=== PATIENT | female | born 1950 | race Caucasian/White ===

== ENCOUNTER → 2017-07-14 11:18 | Outpatient (CLI) | payer MEDICARE, MEDICAID, SELFPAY ==
[2017-07-14 13:08] LABS: Absolute Lymphocyte Count 1.15 X10^3/ul (0.83-4.51); Absolute Neutrophil Count 3.3 X10^3/uL (2.0-7.7); Basophil# 0.02 X10^3/uL; Basophil% 0.4 % (0-1); Eosinophil# 0.13 X10^3/uL; Eosinophils% 2.4 % (0-5); Hematocrit 48.8 % (37-47); Hemoglobin 16.8 g/dl (12.0-15.0); Lymphocyte # 1.15 X10^3/ul (4.0); Lymphocyte % 21.5 % (19-41); Mean Corp Hgb Conc 34.4 g/gl (32-36); Mean Corpuscular Hgb 30.4 pg (27.0-32.0); Mean Corpuscular Volume 88.2 fL (81-99); Mean Platelet Vol. 11.1 fl (6.2-12.0); Monocyte# 0.72 X10^3/uL; Monocyte% 13.5 % (0-10); Neutrophil # 3.32 X10^3/uL (2.7-7.7); Neutrophil % 62.2 % (47-70); Platelet Count 190 K/mm3 (150-450); RBC Distribution Width CV 13.8 % (11.6-14.6); RBC Distribution Width SD 44.7 fl (35.1-43.9); Red Blood Count 5.53 M/mm3 (4.2-5.4); White Blood Count 5.3 K/mm3 (4.4-11.0)
[2017-07-14 13:11] LABS: POSITIVE COUNT NO; POSITIVE DIFFERENTIAL NO; POSITIVE MORPHOLOGY NO
[2017-07-14 13:28] LABS: ALB/GLOB Ratio 1.1 RATIO (0.9-2.4); AST(SGOT) 16 U/L (15-37); Alanine Aminotransfer ALT/SGPT 24 U/L (13-56); Albumin, Serum 4.1 g/dL (3.2-5.0); Alkaline Phosphatase 172 U/L (45-117); Anion Gap 6 (5-15); BUN 8 mg/dL (7-18); BUN/Creat Ratio 8.9 RATIO (10-20); Calcium,Total 8.7 mg/dL (8.5-10.1); Chloride 105 mmol/L (98-107); EST Glomerular Filtration Rate 66 mL/min (>60); Est Glom Filt Rate - Afr Amer 80 mL/min (>60); Globulin 3.7 g/dL (2.2-4.2); Glucose 92 mg/dL (74-106); Potassium 4.4 mmol/L (3.5-5.1); Protein, Total 7.8 g/dL (6.4-8.2); Sodium Level 139 mmol/L (136-145); Thyroid Stim Hormone (TSH) 1.13 uIU/mL (0.358-3.74)
[2017-07-14 13:34] LABS: Vitamin D,25 Hydroxy < 4.2 ng/mL (29.95-100.01)
== END ==
PROVIDERS: Family Provider Family Medicine Geriatric Medicine; PCP Family Medicine Geriatric Medicine; Visit Provider Family Medicine Geriatric Medicine
DX: E55.9 Vitamin D deficiency, unspecified (principal); R53.83 Other fatigue
CPT/HCPCS: 36415; 80053; 82306; 84443; 85025

== ENCOUNTER 2018-02-03 09:51 | Emergency (ER) | payer MEDICARE, MEDICAID, SELFPAY ==
[2018-02-03 09:52] VITALS: BP 164/102; PULSE 83; RESP 16; TEMP 36.4; O2SAT 95; BMI 21.7
--- NOTE | 2018-02-03 10:19 | ED.VISSUMM ---
- ER Visit Summary Date of Service: 02/03/18 Chief Complaint: Facial swelling History of Present Illness: The patient is a 68 F who states that several days ago she was flossing. Left upper premolar area was bleeding along the gumline. Now she is developed a bump along the gumline in that area as well as left maxillary facial swelling and tenderness. She does not have a active dentist. She is a smoker. She has a history of mitral valve prolapse. Physical Examination: Afebrile vital signs are stable Gen: Well-nourished well-developed Head: Normocephalic atraumatic Eyes: Perrl EOMI ENT: TMs clear no rhinorrhea moist mucous membranes left upper premolar region demonstrates mild gum swelling with no drainable abscess. There is dental tenderness. There is left maxillary facial swelling with mild erythema. No ocular involvement noted Neck: Supple no lymphadenopathy no JVD nontender CVS: Regular rate rhythm no murmurs normal S1-S2 Respiratory: No distress clear to auscultation bilaterally chest nontender Abdomen: Soft nontender nondistended normal bowel sounds no masses Back: Nontender Extremity: Nontender no edema Skin: Normal color no rash Neuro: alert orientated ?3 CN II-XII intact normal strength sensation reflexes gait cerebellar Psych: Normal affect normal mood Emergency Department Course and Treatment: Patient will be started on penicillin, Motrin, and a few Gray for pain. She is to follow-up with dentistry as soon as possible. She was advised that the abscess may worsen and necessitate repeat visit and possibly admission. Impression: 1. Periapical abscess of tooth This note was generated with [employer] dictation software. It may contain incorrect words, spelling, and punctuation that were not noted in review of the chart prior to signing ED Disposition - Plan for ED Patient: Disposition: Home or Assisted Living Chief Complaint: Dental Instructions: Dental Abscess Prescriptions: Hydrocodone Bitart/Apap 5-325 [Gray 5MG-325MG] 1 tab PO Q6H PRN PRN 3 Days #10 tab PRN Reason: Pain Ibuprofen [Motrin] 800 mg PO TID PRN PRN #20 tab PRN Reason: Pain Penicillin V Potassium 500 mg PO 4X/DAY #40 tab Additional Instructions: Please follow-up with dentist as soon as possible
--- NOTE | 2018-02-03 10:22 | ED.DCSUM_ITS ---
- ER Visit Summary Date of Service: 02/03/18 Chief Complaint: Facial swelling History of Present Illness: The patient is a 68 F who states that several days ago she was flossing. Left upper premolar area was bleeding along the gumline. Now she is developed a bump along the gumline in that area as well as left maxillary facial swelling and tenderness. She does not have a active dentist. She is a smoker. She has a history of mitral valve prolapse. Physical Examination: Afebrile vital signs are stable Gen: Well-nourished well-developed Head: Normocephalic atraumatic Eyes: Perrl EOMI ENT: TMs clear no rhinorrhea moist mucous membranes left upper premolar region demonstrates mild gum swelling with no drainable abscess. There is dental tenderness. There is left maxillary facial swelling with mild erythema. No ocular involvement noted Neck: Supple no lymphadenopathy no JVD nontender CVS: Regular rate rhythm no murmurs normal S1-S2 Respiratory: No distress clear to auscultation bilaterally chest nontender Abdomen: Soft nontender nondistended normal bowel sounds no masses Back: Nontender Extremity: Nontender no edema Skin: Normal color no rash Neuro: alert orientated ?3 CN II-XII intact normal strength sensation reflexes gait cerebellar Psych: Normal affect normal mood Emergency Department Course and Treatment: Patient will be started on penicillin, Motrin, and a few Keller for pain. She is to follow-up with dentistry as soon as possible. She was advised that the abscess may worsen and necessitate repeat visit and possibly admission. Impression: 1. Periapical abscess of tooth This note was generated with [employer] dictation software. It may contain incorrect words, spelling, and punctuation that were not noted in review of the chart prior to signing ED Disposition - Plan for ED Patient: Disposition: Home or Assisted Living Chief Complaint: Dental Instructions: Dental Abscess Prescriptions: Hydrocodone Bitart/Apap 5-325 [Keller 5MG-325MG] 1 tab PO Q6H PRN PRN 3 Days #10 tab PRN Reason: Pain Ibuprofen [Motrin] 800 mg PO TID PRN PRN #20 tab PRN Reason: Pain Penicillin V Potassium 500 mg PO 4X/DAY #40 tab Additional Instructions: Please follow-up with dentist as soon as possible
== END 2018-02-03 10:46 | disposition home or self-care (01) ==
LOC: ED 10:44
PROVIDERS: Emergency Provider Emergency Medicine; Family Provider Family Medicine Geriatric Medicine; PCP Family Medicine Geriatric Medicine
DX: K04.7 Periapical abscess without sinus (principal); I34.1 Nonrheumatic mitral (valve) prolapse; Z79.899 Other long term (current) drug therapy; F17.200 Nicotine dependence, unspecified, uncomplicated
CPT/HCPCS: 99282

== ENCOUNTER 2018-07-18 10:41 | Emergency (ER) | payer MEDICARE, MEDICAID, SELFPAY ==
[2018-07-18 10:43] VITALS: BP 200/133; PULSE 87; RESP 16; TEMP 36.7; O2SAT 98; BMI 22.4
--- NOTE | 2018-07-18 11:10 | EKG12_ITS ---
Test Reason : HTN Blood Pressure : / mmHG Vent. Rate : 086 BPM Atrial Rate : 086 BPM P-R Int : 152 ms QRS Dur : 080 ms QT Int : 378 ms P-R-T Axes : 073 -30 050 degrees QTc Int : 452 ms Normal sinus rhythm with sinus arrhythmia Possible Left atrial enlargement Left axis deviation Abnormal ECG Confirmed by ELLIOT MONTEIRO, KAE ([id number]), story editor REINA ALMANZA ([id number]) on 07/20/2018 1:35:16 PM Referred By: EDISON/EDMUNDO Confirmed By:KAE ZARATE MD
--- NOTE | 2018-07-18 11:11 | RAD_ITS ---
STUDY: X-RAY CHEST REASON FOR EXAM: Female, 68 years old. Chest pain and dizziness. TECHNIQUE: PA and lateral views of the chest. COMPARISON: None. FINDINGS: EKG electrodes are seen. Hyperinflation. Decreased bilateral bronchovascular markings suggestive of emphysematous changes. There is no demonstrated pleural abnormality. Normal size heart. Normal mediastinum and param. Normal visualized pulmonary arteries. There is atherosclerotic tortuosity of the aortic arch and descending thoracic aorta. There are diffuse degenerative changes of the visualized thoracic spine. Normal visualized ribs, clavicles, and shoulders. There is no demonstrated abnormality of the visualized soft tissue structures of the upper abdomen. RAD/Chest PA and Lateral IMPRESSION: Hyperinflation. Findings suggestive of emphysematous changes. Electronically Signed: Master Hahn, at 12:11 EDT , Service support ,
--- NOTE | 2018-07-18 11:16 | ED.VISSUMM ---
- ER Visit Summary Date of Service: 07/18/18 Chief Complaint: Hypertension History of Present Illness: The patient is a 68 F with a history of hypertension who presents with elevated blood pressures for the past 3 days. Patient states she went to the emergency department at [facility] for shoulder pain. Patient states she was told that her blood pressure was elevated at that time. Patient states she followed up with [facility] today. Patient states she was referred here from the orthopedic office because her blood pressure was elevated. Patient denies any chest pain or shortness of breath. Patient denies any nausea or vomiting. Patient does admit to some chronic neck and back pain. Patient denies any visual changes. Physical Examination: Vital signs are stable. Patient is afebrile. Patient is in no acute distress. Oral mucosa is pink and moist. Neck is supple. Trachea is midline. There is no JVD noted. Heart was regular rate and rhythm. Lungs are clear and equal bilateral. Abdomen is soft. Bowel sounds are normal. There is no tenderness. There is no guarding noted. Skin is warm dry. Cranial nerves II through XII are intact. There are no focal motor or sensory deficits noted. The remaining physical exam is within normal limits. Test Results: EKG showed a normal sinus rhythm with a rate of 86. There is left axis deviation. There are no acute ST or T wave changes. CBC, basic metabolic profile, and troponin were obtained and were normal. PA and lateral chest x-ray does not show any acute cardiopulmonary process. Emergency Department Course and Treatment: Patient was given a dose of clonidine here. Patient's blood pressure remained elevated at 177/101. Patient was given a second dose of clonidine here. Patient's blood pressure after this was 142/83. She was given a prescription for clonidine. Patient was instructed to follow-up with her primary care physician in 5-7 days. Patient was requesting to follow-up with Dr. Miller or someone in her office. Patient understood and was agreeable with the plan. All questions were answered. Disposition: Discharge home Impression: Hypertension This note was generated with [employer] software. It may contain incorrect words, spelling, and punctuation that were not noted in review of the chart prior to signing ED Disposition - Plan for ED Patient: Disposition: Home or Assisted Living Diagnosis: Hypertension Instructions: ED HTN Established Referrals: Parvez De Dios Chi, MD [COURTESY STAFF PHYSICIAN] - Dixie Miller DO [STAFF PHYSICIAN] - 5-7 Days
[2018-07-18] MEDS: cloNIDine HCl 0.1 MG Tablet PO ×2 (11:41→13:27)
[2018-07-18 11:42] VITALS: BP 199/122; PULSE 85; RESP 16; O2SAT 97
[2018-07-18 11:44] LABS: Absolute Lymphocyte Count 0.76 X10^3/ul (0.83-4.51); Absolute Neutrophil Count 5.6 X10^3/uL (2.0-7.7); Basophil# 0.02 X10^3/uL; Basophil% 0.3 % (0-1); Hematocrit 47.7 % (37-47); Lymphocyte # 0.76 X10^3/ul (4.0); Lymphocyte % 10.9 % (19-41); Mean Corp Hgb Conc 33.5 g/gl (32-36); Mean Corpuscular Hgb 30.4 pg (27.0-32.0); Mean Corpuscular Volume 90.5 fL (81-99); Mean Platelet Vol. 10.9 fl (6.2-12.0); Monocyte# 0.57 X10^3/uL; Monocyte% 8.2 % (0-10); Neutrophil # 5.62 X10^3/uL (2.7-7.7); Neutrophil % 80.5 % (47-70); Platelet Count 161 K/mm3 (150-450); RBC Distribution Width CV 13.4 % (11.6-14.6); Red Blood Count 5.27 M/mm3 (4.2-5.4)
[2018-07-18 11:45] LABS: POSITIVE COUNT NO; POSITIVE DIFFERENTIAL NO; POSITIVE MORPHOLOGY NO
[2018-07-18 11:57] LABS: Anion Gap 3 (5-15); BUN 13 mg/dL (7-18); Calcium,Total 8.9 mg/dL (8.5-10.1); Chloride 106 mmol/L (98-107); Creatinine, Serum 0.93 mg/dL (0.55-1.02); EST Glomerular Filtration Rate 64 mL/min (>60); Est Glom Filt Rate - Afr Amer 77 mL/min (>60); Estimated Creatinine Clearance 53.45 ml/min; Glucose 107 mg/dL (74-106); Potassium 3.8 mmol/L (3.5-5.1); Sodium Level 138 mmol/L (136-145)
[2018-07-18 13:00] VITALS: BP 174/102; PULSE 78; RESP 14; O2SAT 97
[2018-07-18 13:27] VITALS: BP 174/101; PULSE 86; RESP 20; O2SAT 95
[2018-07-18 14:42] VITALS: BP 142/82; PULSE 81; RESP 16; O2SAT 98
== END 2018-07-18 14:43 | disposition home or self-care (01) ==
PROVIDERS: Emergency Provider Emergency Medicine
DX: I10 Essential (primary) hypertension (principal); Z72.0 Tobacco use; Z79.899 Other long term (current) drug therapy
CPT/HCPCS: 36415; 71046; 80048; 84484; 85025; 93005; 99285

== ENCOUNTER 2018-07-20 08:25 | Emergency (ER) | payer MEDICARE, MEDICAID, SELFPAY ==
[2018-07-20 08:26] VITALS: BP 219/112; PULSE 90; RESP 18; TEMP 36.6; O2SAT 99; BMI 23.3
--- NOTE | 2018-07-20 08:33 | ED.RN ---
PT STATES I JUST WANT PAIN MEDS AND THEN I WILL FIND A
[2018-07-20] MEDS: morphine 8 MG/ML Syringe 6 MG IM (09:06)
[2018-07-20] MEDS: Ketorolac 60 MG/2 ML Vial IM (09:08)
--- NOTE | 2018-07-20 09:08 | ED.VISSUMM ---
- ER Visit Summary Date of Service: 07/20/18 Chief Complaint: Med refill History of Present Illness: The patient is a 68 F requesting refill of pain medication and possible blood pressure meds. 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 She has a history of arthritis in her neck. She is has continued pain in the right shoulder and neck. She was seen at [facility] and given a prescription for Tylenol 3 and a Medrol Dosepak. Patient was seen at [facility] for follow-up. She had a shoulder x-ray done but was told they would not do anything further until her blood pressure was controlled. She was seen in the ER here on the for elevated blood pressure. Labs and chest x-ray were performed and reviewed. She is given a prescription for clonidine. Patient states that she is able to be seen at [facility] physicians either later today or tomorrow, but she is out of pain medication and very uncomfortable. She states she is in so much pain that her blood pressure medicines are not controlling her blood pressure. Physical Examination: Vital signs in triage include a blood pressure of 219/112, temperature 98, heart rate 90, respiratory rate 18, pulse ox 99% on room air. Patient is sitting upright on the side of the bed. She is in no acute distress. Head neck examination unremarkable. Heart is regular rate and rhythm. Lungs sounds are clear. Abdomen is soft nontender. Back examination reveals significant tenderness throughout the cervical paraspinal muscles and the trapezius muscles bilaterally, right greater than left. She has decreased range of motion of the right arm secondary to pain. She has strong distal pulses and normal sensation. Test Results: Emergency Department Course and Treatment: Patient was given IM injection of morphine, Norflex, and Toradol. On repeat evaluation patient states her pain is significantly improved. Blood pressure remains elevated at 202/117. Patient is due for her clonidine now and will be given 0.2 mg p.o. She will follow-up with [facility] practice this afternoon or tomorrow as scheduled. She will be given prescription for [place], Flexeril, and Toradol. Treatment Plan: [] Disposition: Discharge Impression: 1. Right shoulder strain with muscle spasm 2. Hypertension This note was generated with [employer] software. It may contain incorrect words, spelling, and punctuation that were not noted in review of the chart prior to signing ED Disposition - Plan for ED Patient: Referrals: Care Physician,No Primary [Primary Care Provider] -
[2018-07-20] MEDS: Orphenadrine 60 MG/2 ML Ampul IM (09:09)
--- NOTE | 2018-07-20 10:35 | ED.DEP ---
ED Disposition - Plan for ED Patient: Disposition: Home or Assisted Living Instructions: ED Sprain Shoulder, ED Spasm Muscle Prescriptions: Hydrocodone Bitart/Apap 5-325 [[place] 5MG-325MG] 1 tablet PO Q6H PRN PRN 3 Days #10 tablet PRN Reason: Pain Ketorolac [Toradol] 10 mg PO Q6H PRN #14 tablet PRN Reason: Pain Cyclobenzaprine [Flexeril] 10 mg PO TID PRN #20 tablet PRN Reason: Muscle Spasm Referrals: Jaylen Braden MD [STAFF PHYSICIAN] -
--- NOTE | 2018-07-20 10:38 | DCINST.ED_ITS ---
ED Disposition - Plan for ED Patient: Disposition: Home or Assisted Living Instructions: ED Sprain Shoulder, ED Spasm Muscle Prescriptions: Hydrocodone Bitart/Apap 5-325 [[place] 5MG-325MG] 1 tablet PO Q6H PRN PRN 3 Days #10 tablet PRN Reason: Pain Ketorolac [Toradol] 10 mg PO Q6H PRN #14 tablet PRN Reason: Pain Cyclobenzaprine [Flexeril] 10 mg PO TID PRN #20 tablet PRN Reason: Muscle Spasm Referrals: Jaylen Braden MD [STAFF PHYSICIAN] -
[2018-07-20 10:50] VITALS: BP 119/116
--- NOTE | 2018-07-20 10:51 | ED.RN ---
misc order by dr gomez for pt to take own klonidine for bp.
== END 2018-07-20 10:52 | disposition home or self-care (01) ==
PROVIDERS: Emergency Provider Emergency Medicine
DX: M62.838 Other muscle spasm (principal); S46.911A Strain of unspecified muscle, fascia and tendon at shoulder and upper arm level, right arm, initial encounter; X58.XXXA Exposure to other specified factors, initial encounter; Y93.9 Activity, unspecified; Y92.9 Unspecified place or not applicable; Y99.9 Unspecified external cause status; I10 Essential (primary) hypertension; Z72.0 Tobacco use; G89.29 Other chronic pain
CPT/HCPCS: 96372; 99282

== ENCOUNTER 2023-10-19 14:52 | Observation (INO) | payer MEDICARE, SELFPAY ==
[2023-10-19] VITALS (14 sets, daily range): BP systolic 118–145; BP diastolic 48–90; PULSE 68–100; RESP 16–18; TEMP 36.1–37; O2SAT 85–99; BMI 18.6; BMI 18.7
[2023-10-19 15:52] LABS: Absolute Lymphocyte Count 0.17 X10^3/uL (0.83-4.51); Absolute Neutrophil Count 9.8 X10^3/uL (2.0-7.7); Basophil# 0.07 X10^3/uL; Basophil% 0.6 % (0-1); Eosinophil# 0.59 X10^3/uL; Eosinophils% 5.2 % (0-5); Hematocrit 48.6 % (37-47); Hemoglobin 16.2 g/dL (12.0-15.0); Lymphocyte # 0.17 X10^3/ul (0.83-4.51); Lymphocyte % 1.5 % (19-41); Mean Corp Hgb Conc 33.3 g/dL (32-36); Mean Corpuscular Hgb 28.7 pg (27.0-32.0); Mean Platelet Vol. 10.4 fl (6.2-12.0); Monocyte# 0.67 X10^3/uL; Monocyte% 5.9 % (0-10); NRBC Flagged by Analyzer 0 % (0-5); Neutrophil # 9.77 X10^3/uL (2.7-7.7); Neutrophil % 86.2 % (47-70); POSITIVE DIFFERENTIAL YES; Platelet Count 156 K/mm3 (150-450); RBC Distribution Width CV 13.8 % (11.6-14.6); RBC Distribution Width SD 43.5 fl (35.1-43.9); Red Blood Count 5.65 M/mm3 (4.2-5.4); White Blood Count 11.3 K/mm3 (4.4-11.0)
[2023-10-19 16:17] LABS: Mucous, Urine 0 SEEN /hpf (<or=2+); White Blood Cells 0 SEEN /hpf (0-5)
[2023-10-19 16:20] LABS: AST(SGOT) 49 U/L (15-37); Alanine Aminotransfer ALT/SGPT 48 U/L (13-56); Albumin, Serum 3.9 g/dL (3.2-5.0); Alkaline Phosphatase 138 U/L (45-117); Anion Gap 6 (5-15); BUN 12 mg/dL (7-18); BUN/Creat Ratio 13.1 RATIO (10-20); Calcium,Total 9.2 mg/dL (8.5-10.1); Chloride 102 mmol/L (98-107); Creatinine, Serum 0.92 mg/dL (0.55-1.02); EST Glomerular Filtration Rate 64 mL/min (>60); Est Glom Filt Rate - Afr Amer 77 mL/min (>60); Estimated Creatinine Clearance 44.21 ml/min; Glucose 141 mg/dL (74-106); Potassium 3.5 mmol/L (3.5-5.1); Protein, Total 7.9 g/dL (6.4-8.2); Sodium Level 133 mmol/L (136-145)
[2023-10-19 16:28] LABS: Color, Urine Yellow (Yellow); Glucose, Dipstick Normal (Normal); Ketone-Dipstick 15 mg/dl (Negative); Leukocyte Esterase-Dipstick 25 /ul (Negative); Nitrite-Dipstick Negative (Negative); Occult Blood-Urine 25 /ul (Negative); Protein-Dipstick 30 mg/dl (Negative); Specific Gravity, Urine 1.015 (1.002-1.030); Urine Clarity Clear (Clear); Urine Urobilinogen 1 mg/dl (Normal)
[2023-10-19 16:37] LABS: Urine Bilirubin Dipstick 1 mg/dL (Negative)
[2023-10-19 16:39] LABS: Bacteria RARE /hpf (None Seen); Red Blood Cells-Urine 0-5 SEEN /hpf (0-5); Squamous Epithelial Cells - UA 0-5 SEEN /hpf (5-10)
--- NOTE | 2023-10-19 17:18 | CT_ITS ---
STUDY: CT ABDOMEN AND PELVIS WITH CONTRAST REASON FOR EXAM: Female, 73 years old. Right lower quadrant abdominal pain, guarding, ano RADIATION DOSAGE (If Supplied By Facility): CTDIvol = ( 8.44 ) mGy, DLP = ( 317.65 ) mGycm TECHNIQUE: Transaxial images were obtained from the dome of the diaphragm to the symphysis pubis without oral contrast. IV 75mL Isovue-300 was administered. Sagittal and coronal images were reconstructed. Individualized dose optimization techniques were used for this CT. COMPARISON: None. FINDINGS: The visualized lung bases are unremarkable. The visualized portions of the heart are within normal limits. Normal liver. There are multiple gallstones. There is gallbladder wall thickening. There is moderate splenomegaly. Normal pancreas. Normal bilateral adrenal glands. Normal right kidney. Normal left kidney. Normal visualized stomach. Normal small intestine. There are multiple colonic diverticula consistent with diverticulosis. There is a tubular, thick-walled appendix (>7mm), consistent with acute appendicitis. There is a calcified appendicolith. There is diffuse atherosclerotic calcification of the abdominal aorta, without a demonstrated aneurysm. Normal inferior vena cava. Normal retroperitoneum. Normal urinary bladder. Normal visualized uterus. There is no free fluid in the abdomen or pelvis. Normal abdominal wall. There is lumbar levoscoliosis with degenerative change. CT/Abdomen/Pelvis W IV Cont ONLY IMPRESSION: Acute appendicitis. No obstruction or abscess. Colonic diverticulosis. Multiple gallstones. No biliary dilatation. Splenomegaly. N.B. : The above Results were Read Back by Khris Preston MD to Eyal Pugh MD, and understanding confirmed on 10/19/2023 18:12:38 (ET). Electronically Signed: Khris Preston MD at 18:13 EDT ,
[2023-10-19] MEDS: Ondansetron 4 MG/2 ML Vial IV (17:47)
[2023-10-19] MEDS: Morphine 4 MG/ML Syringe IV (17:48)
--- NOTE | 2023-10-19 18:12 | ED.VIS.GI ---
HPI HPI - GI History of Present Illness Chief Complaint: Abd Pain Detail of Chief Complaint: Abdominal pain that is localized to the right lower quadrant with nausea, l Informant: patient Abdominal Pain/Flank Pain Onset: Yesterday Context: Gradual Onset Timing: Continuous Quality: Aching Location: RLQ Current Severity: Moderate Maximum Severity: Severe Worsened by: Car ride and Movement Relieved by: Nothing Nausea/Vomiting/Emesis GI Symptom: Positive for Nausea Diarrhea/Melena/Hematochezia GI Symptom: Negative for Diarrhea, Melena or Hematochezia Associated Symptoms Associated Symptoms: Negative for Dysuria, Frequency, Hematuria or Urgency Narrative Narrative: Patient is a 73-year-old woman with history of hypertension, hypercholesterolemia and depression. She is on no anticoagulant. She presents with abdominal pain that has migrated to the right lower quadrant. Onset of pain last evening. She not anything to eat today. She does report nausea. She has no appetite. She denies fever or chills. She denies intolerance to greasy or fried foods. She denies history of diverticulosis or diverticulitis. She denies history of gynecologic disorder. She denies allergy to penicillin. She does have allergy to sulfa. She denies dysuria, frequency, urgency or hematuria. She denies flank pain. There is no history of trauma. She denies cardiac or respiratory symptoms. Prior similar symptoms: No Recent Illness/Hospitalization: No PFSH [facility] Medical History HTN (hypertension) Hyperlipemia Suicide attempt Depression Back pain Home Medications ?Medication ?Instructions ?Recorded ?Last Taken ?Type alendronate 70 mg tablet 70 mg PO QWEEK 10/19/23 Unknown History atorvastatin 40 mg tablet 40 mg PO QHS cholesterol 10/19/23 Unknown History cholecalciferol (vitamin D3) 25 25 mcg PO DAILY 10/19/23 Unknown History mcg (1,000 unit) capsule (Vitamin D3) hydrochlorothiazide 25 mg tablet 25 mg PO DAILY 10/19/23 Unknown History sertraline 100 mg tablet 200 mg PO DAILY 10/19/23 Unknown History Allergy/AdvReac Type Severity Reaction Status Date / Time Sulfa (Sulfonamide Allergy Mucosal Verified 10/19/23 14:55 Antibiotics) lesions Surgical History H/O unilateral oophorectomy Social History household members: none housing: house Smoking Status: Current every day smoker tobacco type: cigarettes ROS ROS ED Constitutional Constitutional ED: Denies chills, fever(s) or subjective ENT ENT ED: Denies ear pain, rhinorrhea or sore throat Cardiovascular Cardiovascular: Denies chest pain, palpitations or racing heartbeat Respiratory/Chest Respiratory/Chest: Denies cough, dyspnea or dyspnea on exertion Gastrointestinal Gastrointestinal: Reports abdominal pain, nausea and other Details: Anorexia. ; Denies constipation, diarrhea, melena or vomiting Genitourinary Genitourinary ED: Denies dysuria, hematuria or urinary frequency Musculoskeletal Musculoskeletal: Denies arthralgias, back pain, myalgias or neck pain Integumentary Denies abscess or rash Neurologic Neurologic: Denies headache(s), paresthesias or weakness Hematologic/Lymphatic Hematologic/Lymphatic: Denies easy bleeding or easy bruising EXAM Physical Exam Const Vital Signs: 10/19/23 14:53 10/19/23 16:58 10/19/23 18:01 Temperature 97.7 F L Temperature Source Temporal Pulse Rate 98 69 78 Respiratory Rate 18 16 16 Blood Pressure 138/90 H 141/83 H 124/78 H Blood Pressure Mean 106 102 93 Pulse Ox 92 99 98 Oxygen Delivery Method Room Air Room Air Room Air Positive well nourished and well developed Constitutional Narrative: Patient appears uncomfortable. General Appearance ED: well developed; Negative for pallor HEENT Reports TM's clear and dry mucous membranes normocephalic and atraumatic Tympanic Membrane ED: Yes TM's clear Mouth ED: Yes dry mucous membranes Mouth: dry mucous membranes Eyes PERRL and EOMs intact bilaterally General Eye ED: Negative for pale conjunctiva or scleral icterus Resp normal respiratory effort and clear to auscultation bilaterally Cardio regular rate, regular rhythm, S1 normal heart sound, S2 normal heart sound and no murmurs GI no masses; Negative for non-tender or non-distended GI Narrative: There is slight tympany to percussion. She has percussion tenderness right lower quadrant. She has an equivocal Rovsing sign. She does have rebound tenderness. There is guarding over the right lower quadrant in the proximity McBurney's point. Back/Spine no CVA tenderness Extremity full ROM Neuro CN's II-XII intact bilaterally and moves all extremities Sensorium / Orientation: alert Psych mental status grossly normal Skin no wounds General Skin Exam: Negative for jaundice or pallor Lesions: no lesions Rashes: no rashes MDM MDM MDM Narrative Medical decision making narrative: Differential diagnosis would include appendicitis, regional enteritis, right-sided diverticulitis, abdominal pain of unknown etiology, doubt gynecologic origin. CT and appropriate blood work was ordered. Lab Data Attestation: I reviewed the patient's lab results. Lab results narrative: Comprehensive metabolic panel is slight elevation of alkaline phosphatase and AST of 138 and 49 respectively. Glucose is elevated 141 with a normal CO2 anion gap. Urinalysis unremarkable. White count is slightly of 11,300 with slight shift. Labs: Laboratory Results - last 24 hr 10/19/23 10/19/23 15:40 16:02 WBC 11.3 H RBC 5.65 H Hgb 16.2 H Hct 48.6 H MCV 86.0 MCH 28.7 MCHC 33.3 RDW Std Deviation 43.5 RDW Coeff of Alida 13.8 Plt Count 156 MPV 10.4 Immature Gran % (Auto) 0.600 Neut % (Auto) 86.2 H Lymph % (Auto) 1.5 L Starr % (Auto) 5.9 Eos % (Auto) 5.2 H Baso % (Auto) 0.6 Absolute Neuts (auto) 9.8 H Absolute Lymphs (auto) 0.17 L Nucleated RBC % 0 Sodium 133 L Potassium 3.5 Chloride 102 Carbon Dioxide 25.0 Anion Gap 6 BUN 12 Creatinine 0.92 Estim Creat Clear Calc 44.21 Est GFR (MDRD) Af Amer 77 Est GFR (MDRD) Non-Af 64 BUN/Creatinine Ratio 13.1 Glucose 141 H Calcium 9.2 Total Bilirubin 0.90 AST 49 H ALT 48 Alkaline Phosphatase 138 H Total Protein 7.9 Albumin 3.9 Globulin 4.0 Albumin/Globulin Ratio 1.0 Urine Color Yellow Urine Clarity Clear Urine pH 6.0 Ur Specific Elmer 1.015 Urine Protein 30 H Urine Glucose (UA) Normal Urine Ketones 15 H Urine Occult Blood 25 H Urine Nitrite Negative Urine Bilirubin 1 H Urine Urobilinogen 1 H Ur Leukocyte Esterase 25 H Urine RBC 0-5 SEEN Urine WBC 0 SEEN Ur Squamous Epith Cells 0-5 SEEN Urine Bacteria RARE Urine Mucus 0 SEEN Radiography Diagnostic Testing: Clinical Impression(s) from Imaging Studies Abdomen/Pelvis CT 10/19/23 17:18 IMPRESSION: Acute appendicitis. No obstruction or abscess. Colonic diverticulosis. Multiple gallstones. No biliary dilatation. Splenomegaly. N.B. : The above Results were Read Back by Khris Preston MD to Eyal Pugh MD, and understanding confirmed on 10/19/2023 18:12:38 (ET). Electronically Signed: Khris Preston MD at 18:13 EDT , ADDENDUM: 10/19/23 1820 IMPRESSION: Acute appendicitis. No obstruction or abscess. Colonic diverticulosis. Multiple gallstones. No biliary dilatation. Splenomegaly. N.B. : The above Results were Read Back by Khris Preston MD to Eyal Pugh MD, and understanding confirmed on 10/19/2023 18:12:38 (ET). Electronically Signed: Khris Preston MD at 18:13 EDT , Management Discussion w/another healthcare provider: Prenatal Teacher (Case was discussed with Dr. Rush who is on-call for surgery. She requested EKG for preoperative clearance. This was ordered.) Discharge Plan Triage Chief Complaint: Abd Pain ED Provider: Eyal Pugh Dx/Rx/DC Orders Clinical Impression: Acute appendicitis with localized peritonitis, Cholelithiasis, Diverticulosis Prescriptions: No Action sertraline 100 mg tablet 200 mg PO DAILY cholecalciferol (vitamin D3) [Vitamin D3] 25 mcg (1,000 unit) capsule 25 mcg PO DAILY atorvastatin 40 mg tablet 40 mg PO QHS alendronate 70 mg tablet 70 mg PO QWEEK hydrochlorothiazide 25 mg tablet 25 mg PO DAILY Primary Care Provider: Care Physician,No Primary Referrals: Care Physician,No Primary [Primary Care Provider] - Print Language: Andorran
--- NOTE | 2023-10-19 18:20 | HP.PCM.SX_ITS ---
HPI - General General Date of Service: 10/19/23 HPI Narrative SNOW SOLIS, is a 73 F who presents presents to the ER due to right lower quadrant pain. Patient states abdominal pain is lower abdomen started last night. Patient did have nausea denies any vomiting. Patient last ate at noon yesterday had fried shrimp. Patient has had a colonoscopy but it was years ago per patient. Patient had a white blood count of 11.3 was given Zosyn in the ER. Patient CT abdomen abdomen pelvis showed acute appendicitis with appendicolith. There is also noted to be cholelithiasis. Patient denies any right upper quadrant pain after eating fatty or greasy foods in the past. Patient states the gallstone has been there for a while on previous images that she is aware of it. We do not have these images at our hospital. [facility] Medical History HTN (hypertension) Hyperlipemia Suicide attempt Depression Back pain Home Medications ?Medication ?Instructions ?Recorded ?Last Taken ?Type alendronate 70 mg tablet 70 mg PO QWEEK 10/19/23 Unknown History atorvastatin 40 mg tablet 40 mg PO QHS cholesterol 10/19/23 Unknown History cholecalciferol (vitamin D3) 25 25 mcg PO DAILY 10/19/23 Unknown History mcg (1,000 unit) capsule (Vitamin D3) hydrochlorothiazide 25 mg tablet 25 mg PO DAILY 10/19/23 Unknown History sertraline 100 mg tablet 200 mg PO DAILY 10/19/23 Unknown History Allergy/AdvReac Type Severity Reaction Status Date / Time Sulfa (Sulfonamide Allergy Mucosal Verified 10/19/23 14:55 Antibiotics) lesions Surgical History H/O unilateral oophorectomy Social History household members: none housing: house Smoking Status: Current every day smoker tobacco type: cigarettes Vital Signs Vital Signs Vital Signs: 10/19/23 14:53 10/19/23 16:58 10/19/23 18:01 Temperature 97.7 F L Temperature Source Temporal Pulse Rate 98 69 78 Respiratory Rate 18 16 16 Blood Pressure 138/90 H 141/83 H 124/78 H Blood Pressure Mean 106 102 93 Pulse Ox 92 99 98 Oxygen Delivery Method Room Air Room Air Room Air Weight Weight: 115 lb 1.301 oz Body Mass Index (BMI) 18.6 Physical Exam Const alert, oriented x3 and no apparent distress HEENT normocephalic and head/scalp atraumatic Resp normal respiratory effort Cardio regular rate GI soft to palpation; Negative for non-distended Palpation: tender RLQ; Negative for guarding Extremity no clubbing, cyanosis or edema Neuro CN's II-XII intact bilaterally Psych mental status grossly normal Results Lab / Micro Data 10/19/23 15:40 10/19/23 15:40 Labs: Laboratory Results - last 24 hr 10/19/23 15:40: WBC 11.3 H, RBC 5.65 H, Hgb 16.2 H, Hct 48.6 H, MCV 86.0, MCH 28.7, MCHC 33.3, RDW Std Deviation 43.5, RDW Coeff of Alida 13.8, Plt Count 156, MPV 10.4, Immature Gran % (Auto) 0.600, Neut % (Auto) 86.2 H, Lymph % (Auto) 1.5 L, [place] % (Auto) 5.9, Eos % (Auto) 5.2 H, Baso % (Auto) 0.6, Absolute Neuts (auto) 9.8 H, Absolute Lymphs (auto) 0.17 L, Nucleated RBC % 0, Sodium 133 L, Potassium 3.5, Chloride 102, Carbon Dioxide 25.0, Anion Gap 6, BUN 12, Creatinine 0.92, Estim Creat Clear Calc 44.21, Est GFR (MDRD) Af Amer 77, Est GFR (MDRD) Non-Af 64, BUN/Creatinine Ratio 13.1, Glucose 141 H, Calcium 9.2, Total Bilirubin 0.90, AST 49 H, ALT 48, Alkaline Phosphatase 138 H, Total Protein 7.9, Albumin 3.9, Globulin 4.0, Albumin/Globulin Ratio 1.0 10/19/23 16:02: Urine Color Yellow, Urine Clarity Clear, Urine pH 6.0, Ur Specific [place] 1.015, Urine Protein 30 H, Urine Glucose (UA) Normal, Urine Ketones 15 H, Urine Occult Blood 25 H, Urine Nitrite Negative, Urine Bilirubin 1 H, Urine Urobilinogen 1 H, Ur Leukocyte Esterase 25 H, Urine RBC 0-5 SEEN, Urine WBC 0 SEEN, Ur Squamous Epith Cells 0-5 SEEN, Urine Bacteria RARE, Urine Mucus 0 SEEN Imaging Radiology Impression Abdomen/Pelvis CT 10/19/23 17:18 IMPRESSION: Acute appendicitis. No obstruction or abscess. Colonic diverticulosis. Multiple gallstones. No biliary dilatation. Splenomegaly. N.B. : The above Results were Read Back by Khris Preston MD to Eyal Pugh MD, and understanding confirmed on 10/19/2023 18:12:38 (ET). Electronically Signed: Khris Preston MD at 18:13 EDT , Assessment & Plan Assessment/Plan (1) Acute appendicitis with localized peritonitis: (2) Cholelithiasis: PLAN: Plan 1. Discussed procedure laparoscopic appendectomy, possible open, possible laparoscopic cholecystectomy, possible cholangiogram along with the risk but not limited to bleeding, infection/abscess, injury to another organ (small bowel, colon, etc.), adhesion, hernia at incision sites, and anesthesia. Discussed with patient that there would be a lower likelihood of doing a cholecystectomy only if the gallbladder actually looked inflamed. Patient states she has had the stone for years and denies any food intolerance. Reviewed the anatomy with the patient and discussed the procedure: laparoscopic cholecystectomy with possible cholangiograms, possible open. Review risks including but not limited to bleeding, infection, hernia, bile leak, retained gallstones requiring another procedure ERCP- Endoscopic Retrograde Cholangiopancreatography, injury to another organ (bile ducts, common bile duct, small bowel, etc.) and conversion to an open procedure. All questions were answered. Daksha Ramos M.D. Pager: [phone] [facility] [address] [place] [address], [address] [place] [address] Office: [phone]
[2023-10-19] MEDS: Piperacil/Tazobactam 4.5 GM in 0.9% Normal Saline (100mL MB+) 100 ML IV (18:58)
--- NOTE | 2023-10-19 19:52 | PRE.ANES_ITS ---
ASA Classification* ASA Classification ASA Classification: 2 and E Assessment & Plan Anesthesia* Anesthesia Assessment Anesthesia Assessment: Discussed sedation and/or anesthesia options, risks, benefits, and alternatives with patient/parents/legal guardian/POA. Questions invited. The patient/parents/legal guardian/POA seems to understand and agrees to proceed with anesthesia plan. Reviewed the physical assessment, medical history, allergy history and patient home medications list prior to surgery/procedure/anesthetic and documented any changes. Performed airway and anesthesia risk assessments. Procedural Plan Procedural Plan:: Proceed w/ Anesthesia plan Anesthesia Type Anesthesia Type: General (Patient seen, chart reviewed just prior to surgery at 1852) Anesthesia Focused Assessment* Temperature: 97.3 F Pulse Rate: 100 Blood Pressure: 143/80 Respiratory Rate: 17 Pulse Ox: 98 Airway Assessment Mouth opens: >3 cm Mallampati Score: II Focused Labs Anesthesia Preop lab: CBC WBC 11.3 K/mm3 (4.4-11.0) H 10/19/23 15:40 RBC 5.65 M/mm3 (4.2-5.4) H 10/19/23 15:40 Hgb 16.2 g/dL (12.0-15.0) H 10/19/23 15:40 Hct 48.6 % (37-47) H 10/19/23 15:40 Plt Count 156 K/mm3 (150-450) 10/19/23 15:40 CHEMISTRY Potassium 3.5 mmol/L (3.5-5.1) 10/19/23 15:40 Sodium 133 mmol/L (136-145) L 10/19/23 15:40 BUN 12 mg/dL (7-18) 10/19/23 15:40 Creatinine 0.92 mg/dL (0.55-1.02) 10/19/23 15:40 Glucose 141 mg/dL (74-106) H 10/19/23 15:40 TSH 1.13 uIU/mL (0.358-3.74) 07/14/17 11:20 COAG Pre-Assessment Diagnosis/Proposed Procedure Planned Operative Procedure(s): Laproscopic appendectomy, possible reena Anesthesia History 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 When Was Last Pacemaker Check QUESTION #4 FULL TEXT: You/Your Family Experience fever (hyperthermia) with Anesthesia Last Oral Intake Last Oral intake: Last Oral Intake NPO since 00:00 10/19/23 18:44 Meds taken in AM with sips of No 10/19/23 18:44 water? Meds patient instructed to take am of surgery PONV PONV - electrical sign servicer: PONV - electrical sign servicer Female HX of Motion Sickness HX of N/V After Surgery Non-Smoker Duration of Surgery greater than 60 minutes Number of Risk Factors PONV Score Height & Weight Height & Weight: Anesthesia: Height & Weight Height 5 ft 6 in 10/19/23 18:44 Weight: 52.2 kg 10/19/23 18:44 Body Mass Index (BMI) 18.6 10/19/23 18:44 Respiratory Assessment Respiratory Assessment - electrical sign servicer: Respiratory Tract Infection Hx - electrical sign servicer Hx Respiratory Tract Infection No 10/19/23 18:44 STOP Sleep Apnea STOP Sleep Apnea - electrical sign servicer: STOP Sleep Apnea - electrical sign servicer Hx Hypertension Yes 10/19/23 18:44 Hx Sleep Apnea No 10/19/23 18:44 CPAP BIPAP Do you snore loudly (louder No 10/19/23 18:44 than talking or can be heard Do you often feel tired/ No 10/19/23 18:44 fatigued/ sleepy during daytime? Has anyone observed you stop No 10/19/23 18:44 breathing during sleep? STOP Results Negative 10/19/23 18:44 QUESTION #5 FULL TEXT : Do you snore loudly (louder than talking or can be heard through closed doors)? 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 Specify any problems Hx of Preganancy in last 3 Months Nurse Filling Out Transfusion & Questions: Date: Time: Patient unable to answer at this time (ie. confused, unrespo /Reproduction History /Reproductive History - electrical sign servicer: /Reproductive Hx- electrical sign servicer Hx Now No 10/19/23 18:44 Gestational Age (in weeks): EDC: Hx Hx Para Hx Section SAB No 10/19/23 18:44 PFSH Medical History HTN (hypertension) Hyperlipemia Suicide attempt Depression Back pain Home Medications ?Medication ?Instructions ?Recorded ?Last Taken ?Type alendronate 70 mg tablet 70 mg PO QWEEK 10/19/23 Unknown History atorvastatin 40 mg tablet 40 mg PO QHS cholesterol 10/19/23 Unknown History cholecalciferol (vitamin D3) 25 25 mcg PO DAILY 10/19/23 Unknown History mcg (1,000 unit) capsule (Vitamin D3) hydrochlorothiazide 25 mg tablet 25 mg PO DAILY 10/19/23 Unknown History sertraline 100 mg tablet 200 mg PO DAILY 10/19/23 Unknown History Allergy/AdvReac Type Severity Reaction Status Date / Time Sulfa (Sulfonamide Allergy Mucosal Verified 10/19/23 14:55 Antibiotics) lesions Surgical History H/O unilateral oophorectomy Social History household members: none housing: house Smoking Status: Current every day smoker tobacco type: cigarettes Review of Systems (Anesthesia) ROS Narrative System reviewed and no additional complaints, except as documented.
[2023-10-19] MEDS: Bupiv/Epi 0.25% 30 ML Vial (19:57)
--- NOTE | 2023-10-19 20:07 | PCM.OPRPT ---
Report of Operation Date of Procedure: 10/19/23 Surgeon: aDksha Ramos Type of Anesthesia: General/Supplemental Anesthesiologist: Abhilash Wahl Special Medications: Zosyn 3.375 g IV x 1 given in ER for acute appendicitis Specimen's removed: Appendix Estimated Blood Loss (mL): < 10 cc Description of Procedure: Indications: 73-year-old female presented to the ER with new right lower quadrant pain starting last night. On workup she was found to have acute appendicitis on CT and a leukocytosis of 11.3. Patient was started on antibiotics in the ER for acute appendicitis-Zosyn 3.375 g IV x 1 Description of the procedure: The patient was placed on operating table in supine position. General anesthesia was induced. A timeout was completed verifying correct patient, procedure, position and special equipment prior to beginning procedure. Abdomen was prepped and draped in usual sterile fashion. Incision was made in the natural skin line above the umbilicus with a 15 blade scalpel. The fascia was elevated and incised. Entry into the peritoneum was confirmed visually and no bowel was noted in the vicinity of the incision. The Devlin trocar was placed under direct vision. Abdomen insufflated with a pressure of 12-15 mmHg. Patient tolerated insertion well. The scope was inserted and the abdomen inspected. No injuries from initial trocar placement were noted. Minimal amount of fluid was seen in the right lower quadrant. An direct visualization 2 -5 mm trocars were placed one above the symphysis pubis and below the hairline and one in the left lower quadrant lateral to the rectus muscle. Care is taken to avoid injury to the bladder and inferior epigastric vessels. Gallbladder was noted to be distended but no signs of inflammation and the stone was mobile. The table was placed in Trendelenburg position with the right side elevated. The appendix was grasped with atraumatic grasper and elevated. It was noted to be inflamed. A window was developed in the mesoappendix at the point between the base of the appendix and the cecum. An endoscopic 45 mm linear cutting stapler blue load was then used to divide and staple the base of the appendix. Enseal was used to divide the mesoappendix. The appendix was withdrawn into the Devlin trocar after being placed endoscopically retrieval bag. Appendix was sent to pathology. The appendiceal stump was then irrigated and hemostasis was assured. Fluid was suctioned no other pathology was identified. Secondary trochars were removed under direct visualization. No bleeding was noted trocar sites. The laparoscope withdrawn and the umbilical trocar removed. The abdomen was allowed to collapse. Local anesthesia of 0.5% Marcaine was used at the incision sites. The umbilical trocar site was closed with the [id number] 0 Vicryl suture. The skin was closed using sutures of 4-0 Monocryl and Steri-Strips. The patient was extubated. The patient tolerated the procedure well and was taken to the postanesthesia care unit in satisfactory condition. Complications none
--- NOTE | 2023-10-19 20:09 | DCINST_ITS ---
Discharge Instructions Diet Discharge Diet: Light diet - advance as tolerated Activity Discharge Activity: May Not Drive (while taking narcotic pain medications.) May shower in (days): 1 Lifting Restrictions: no lifting >20 lbs x 2 wks, no strenuous exercise for 4 wks Dressing / Incision Call your doctor if your incision/area has: Continuous Slow Oozing, Sudden Increased Bleeding, Increased Pain/ Swelling, Increased Redness, Foul Smelling Discharge and Swelling at the incision site Call your doctor if you observe: Fever of 101 or Higher Remove Dressing in: 2 days Cleanse incision/area with: Soap & Water Additional Dressing/Incision Instructions:: Steri-Strips will fall off in 7 to 10 days, if they do not fall off okay to remove after 10 days. Follow Up Care Please Follow Up With: Daksha Ramos MD When: Call the office for a follow-up appointment 2 weeks; after 5 PM and on the weekends call [phone] with any concerns. Test Results: Test results from this visit will be discussed in further detail at your follow- up appointment, if applicable. Discharge Plan Admission Attending Provider: Daksha Ramos Primary Care Provider: Care PhysicianHailey Primary Instructions Print Language: Kiswahili Discharge Orders/Prescriptions Prescriptions: New tramadol 50 mg tablet 50 mg PO Q6H PRN (Reason: pain) 3 Days Qty: 10 0RF Continued sertraline 100 mg tablet 200 mg PO DAILY cholecalciferol (vitamin D3) [Vitamin D3] 25 mcg (1,000 unit) capsule 25 mcg PO DAILY atorvastatin 40 mg tablet 40 mg PO QHS alendronate 70 mg tablet 70 mg PO QWEEK hydrochlorothiazide 25 mg tablet 25 mg PO DAILY Referrals / Follow Up: Care PhysicianHailey Primary [Primary Care Provider] - Disposition Disposition (needs filled in before D/C Order can be placed): Home, Self Care
--- NOTE | 2023-10-19 20:26 | PCM.POST.ANE ---
Anesthesia: Postop Eval I Current Vital Signs Temperature: 96.9 F Pulse Rate: 83 Blood Pressure: 137/87 Respiratory Rate: 16 Pulse Ox: 90 Oxygen Delivery Method: Room Air Assessment Airway patent: Yes Spontaneous unlabored respirations: Yes Mental status: Awake and Calm nausea: No Vomiting: No Anesthesia Complication: No Fluid Hydration Crystalloid volume administer (ml): 500 Total IV fluid infused: 500 Progress Note Anesthesia document: Postop Eval 1 completed: Yes
--- NOTE | 2023-10-19 20:27 | PCM.POSTANE2 ---
Anesthesia Postop Eval I Sum Postop Eval Completion status Anesthesia document: Postop Eval 1 completed: Yes Anesthesia Postop Eval I Summary Anesthesia Postop Eval I Summary: Anesthesia Postop Eval I: Assessment Summary Airway patent Yes 10/19/23 20:27 Spontaneous unlabored Yes 10/19/23 20:27 respirations Mental status Awake,Calm 10/19/23 20:27 nausea No 10/19/23 20:27 Vomiting No 10/19/23 20:27 Anesthesia Postop Eval I: Fluid Summary Crystalloid volume administer 500 10/19/23 20:27 (ml) Colloids volume administered ( ml) Blood Product volume administered (ml) Total IV fluid infused 500 10/19/23 20:27 Anesthesia Postop Eval I: Summary Notes Anesthesia Complication No 10/19/23 20:27 Anesthesia Complication Comment: Post-operative progress note Anesthesia: Postop Eval II Evaluation Mental status: Awake Pain Level: 1 nausea: No Vomiting: No Complications Anesthesia Complication: No
--- NOTE | 2023-10-19 22:45 | NURSING ---
Pt assisted to bathroom to attempt void, no results. Will attempt at later time.
[2023-10-19] MEDS: 0.9% Normal Saline (1000mL) 1,000 ML 120 ML IV (22:54)
--- NOTE | 2023-10-20 | APP_PTH ---
PATIENT: SNOW SOLIS LOC: MS3 U#:[id number] AGE/SX: 73/F ROOM: PR315 RE10/19/[address]: Dr. Daksha Ramos MD : 1950 BED: 1 DIS: 10/20/2023 SPEC #: [id number] RECD: 10/20/23 11:11 STATUS: SERGIO LACEY #: [id number] PAULA: 10/20/23 00:[address]: Daksha Ramos DEPT: SURGICAL PATHOLOGY RECD BY: Kelsey Smith ENTERED: 10/20/23 12:45 SP TYPE: APPENDIX OT DR: No Primary Care Phys Tissues: Appendix, NOS Procedures: Surgery Specimen Level III HEADER OPERATION: Laparoscopic, appendectomy PRE-OP DIAGNOSIS: Acute appendicitis with localized peritonitis, cholelithiasis TISSUE SUBMITTED: Appendix MICROSCOPIC DIAGNOSIS Appendix, appendectomy: Acute appendicitis and periappendicitis. BARBIE/ 10/21/2023 MICROSCOPIC DESCRIPTION Slides are reviewed. GROSS DESCRIPTION Received in fixative is one container labeled with the patient's name and designated appendix. The specimen consists of an appendix measuring 7.0 cm in length and up to 1.2 cm in diameter. The attached periappendiceal adipose tissue measures up to 2.5 cm in width. The serosa is congested and covered with sanchez purulent exudate. No obvious perforation is identified. The lumen contains fecal material and purulent fluid. No fecalith is identified. Adviser Sales sections are submitted in one cassette. BARBIE: 10/20/2023 TC:2 CPT: 35533
[2023-10-20 00:49] VITALS: BP 117/64; PULSE 74; RESP 16; TEMP 37.3; O2SAT 94
[2023-10-20 05:48] VITALS: BP 128/70; PULSE 75; RESP 18; TEMP 37.2; O2SAT 93
[2023-10-20] MEDS: 0.9% Normal Saline (1000mL) 1,000 ML 120 ML IV (05:51)
--- NOTE | 2023-10-20 07:36 | PN.SURG_ITS ---
Subjective Subjective Patient is a 73 y/o F I am following s/p laparoscopic appendectomy. Patient denies nausea, vomiting, fever. Patient notes abdominal and incisional soreness. Patient denies any shortness of breath. She continues to be on oxygen. Objective Data Objective Data Vital Signs: Vital Signs Temp Pulse Resp BP Pulse Ox O2 Del Method O2 Flow Rate 99.0 F 75 18 128/70 H 93 Nasal Cannula 2 10/20/23 05:48 10/20/23 05:48 10/20/23 05:48 10/20/23 05:48 10/20/23 05:48 10/20/23 05:48 10/20/23 05:48 Oxygen Flow Rate (L/min) 2 Oxygen Delivery Method Nasal Cannula Weight: 115 lb 15.41 oz Body Mass Index (BMI) 18.7 Intake & Output: Intake and Output for Last 24 Hours 10/18/23 10/19/23 10/20/23 23:59 23:59 23:59 Intake Total 500 / 500 1434 / 1434 Output Total 300 / 300 Balance 500 / 500 1134 / 1134 Lab / Micro Data 10/19/23 15:40 10/19/23 15:40 Labs: Laboratory Results - last 24 hr 10/19/23 15:40: WBC 11.3 H, RBC 5.65 H, Hgb 16.2 H, Hct 48.6 H, MCV 86.0, MCH 28.7, MCHC 33.3, RDW Std Deviation 43.5, RDW Coeff of Alida 13.8, Plt Count 156, MPV 10.4, Immature Gran % (Auto) 0.600, Neut % (Auto) 86.2 H, Lymph % (Auto) 1.5 L, [place] % (Auto) 5.9, Eos % (Auto) 5.2 H, Baso % (Auto) 0.6, Absolute Neuts (auto) 9.8 H, Absolute Lymphs (auto) 0.17 L, Nucleated RBC % 0, Sodium 133 L, Potassium 3.5, Chloride 102, Carbon Dioxide 25.0, Anion Gap 6, BUN 12, Creatinine 0.92, Estim Creat Clear Calc 44.21, Est GFR (MDRD) Af Amer 77, Est GFR (MDRD) Non-Af 64, BUN/Creatinine Ratio 13.1, Glucose 141 H, Calcium 9.2, Total Bilirubin 0.90, AST 49 H, ALT 48, Alkaline Phosphatase 138 H, Total Protein 7.9, Albumin 3.9, Globulin 4.0, Albumin/Globulin Ratio 1.0 10/19/23 16:02: Urine Color Yellow, Urine Clarity Clear, Urine pH 6.0, Ur Specific [place] 1.015, Urine Protein 30 H, Urine Glucose (UA) Normal, Urine Ketones 15 H, Urine Occult Blood 25 H, Urine Nitrite Negative, Urine Bilirubin 1 H, Urine Urobilinogen 1 H, Ur Leukocyte Esterase 25 H, Urine RBC 0-5 SEEN, Urine WBC 0 SEEN, Ur Squamous Epith Cells 0-5 SEEN, Urine Bacteria RARE, Urine Mucus 0 SEEN Radiography Diagnostic Testing: Radiology Impression Abdomen/Pelvis CT 10/19/23 17:18 IMPRESSION: Acute appendicitis. No obstruction or abscess. Colonic diverticulosis. Multiple gallstones. No biliary dilatation. Splenomegaly. N.B. : The above Results were Read Back by Khris Preston MD to Eyal Pugh MD, and understanding confirmed on 10/19/2023 18:12:38 (ET). Electronically Signed: Khris Preston MD at 18:13 EDT , Physical Exam GI GI Narrative: Abdomen- soft, tenderness in the RLQ. Incisions c/d/i. No erythema or infection noted. Assessment & Plan Assessment/Plan (1) Acute appendicitis with localized peritonitis: QUALIFIERS: Appendicitis gangrene presence: without gangrene A ppendicitis perforation presence: without perforation Appendicitis abscess presence: without abscess Qualified Code(s): K35.30 - Acute appendicitis with localized peritonitis, without perforation or gangrene PLAN: I am following this patient in conjunction with Dr. Ramos. She will independently evaluate this patient. Encourage ambulation and I.S. Wean off of oxygen Plan for discharge later today Charges/Coding Visit Charges Inpatient E&M: 06370 Subs Hosp L1 (no charge; post op)
[2023-10-20 07:41] VITALS: BP 145/88; PULSE 74; RESP 17; TEMP 36.7; O2SAT 95
--- NOTE | 2023-10-20 08:56 | CASEMGMT ---
MARVA CM into pt room, pt neighbor visiting. Pt agreeable to discussing dc plan with neighbor present. Pt reports she lives alone with her dog. She is I in ADL's. Pt denies any homegoing needs. Pt does not have a PCP but denies need for list. She states she will picker packer a pamphlet when she brings her HCPOA papers in.
--- NOTE | 2023-10-20 11:05 | PHA.DC.MR.R ---
Pharmacy [place] Med Reconciliation Pharmacy Service has performed discharge medication reconciliation for this patient. Medication education papers prepared, patient discharged when counseling was attempted. Medications reviewed. The patient's discharge medication list was reviewed for discrepancies and discrepancies were resolved. Medications at Discharge Home Medications alendronate 70 mg tablet 70 mg PO QWEEK 10/19/23 atorvastatin 40 mg tablet 40 mg PO QHS cholesterol 10/19/23 cholecalciferol (vitamin D3) 25 mcg (1,000 unit) capsule (Vitamin D3) 25 mcg PO DAILY 10/19/23 hydrochlorothiazide 25 mg tablet 25 mg PO DAILY 10/19/23 sertraline 100 mg tablet 200 mg PO DAILY 10/19/23 tramadol 50 mg tablet 50 mg PO Q6H PRN pain 3 days #10 tabs 10/19/23
== END 2023-10-20 10:29 | disposition home or self-care (01) ==
LOC: ED 18:58 → SDC 20:09 → ED 20:35 → MS3 20:36
PROVIDERS: Admitting Provider Surgery; Emergency Provider Emergency Medicine; Visit Provider Surgery
PROC: 0DTJ4ZZ Resection of Appendix, Percutaneous Endoscopic Approach (ICD-10-PCS; CPT 44970; principal; 2023-10-19 19:30)
DX: K35.30 Acute appendicitis with localized peritonitis, without perforation or gangrene (principal); K80.20 Calculus of gallbladder without cholecystitis without obstruction; I10 Essential (primary) hypertension; E78.00 Pure hypercholesterolemia, unspecified; F17.210 Nicotine dependence, cigarettes, uncomplicated; K57.30 Diverticulosis of large intestine without perforation or abscess without bleeding; F32.A Depression, unspecified; Z79.899 Other long term (current) drug therapy
CPT/HCPCS: 44970; 00840; 74177; 80053; 81001; 85025; 88304; 93005; 96361; 96365; 96375; 99221; 99284; 99406; J7030; Q9967; A4216; C1760; G0378; J2405

== ENCOUNTER 2024-07-31 14:00 | Emergency (ER) | payer MEDICARE, SELFPAY ==
[2024-07-31 14:01] VITALS: BP 154/95; PULSE 95; RESP 16; TEMP 36.1; O2SAT 94; BMI 20.2
--- NOTE | 2024-07-31 15:11 | ED.VIS.BACK ---
HPI <ARIAN Mckinney - Last Filed: 07/31/24 19:53> History of Present Illness Chief Complaint: Back Narrative Narrative: 74-year-old female with PMH of HTN, HLD presents with 1 week of abdominal bloating and bilateral lumbar pain. She states her back hurts significantly with standing and is limiting her activity. She said no fall or trauma. She also has abdominal bloating and reports chronic alternating diarrhea and constipation since she had her appendix removed a couple months ago. She states the diarrhea causes her frequent UTIs. She denies dysuria. She has no fever or chills. She has no lower extremity weakness, paresthesias, saddle anesthesia or bladder bowel incontinence. She has tried Tylenol arthritis. PFSH <ARIAN Mckinney - Last Filed: 07/31/24 19:53> [facility] Medical History (Updated 07/31/24 @ 17:37 by ARIAN Mckinney) Diverticulosis Cholelithiasis HTN (hypertension) Hyperlipemia Suicide attempt Depression Back pain Home Medications ?Medication ?Instructions ?Recorded ?Last Taken ?Type alendronate 70 mg tablet 70 mg PO QWEEK 10/19/23 Unknown History atorvastatin 40 mg tablet 40 mg PO QHS cholesterol 10/19/23 Unknown History cholecalciferol (vitamin D3) 25 25 mcg PO DAILY 10/19/23 Unknown History mcg (1,000 unit) capsule (Vitamin D3) hydrochlorothiazide 25 mg tablet 25 mg PO DAILY 10/19/23 Unknown History sertraline 100 mg tablet 200 mg PO DAILY 10/19/23 Unknown History Allergy/AdvReac Type Severity Reaction Status Date / Time Sulfa (Sulfonamide Allergy Mucosal Verified 07/31/24 14:04 Antibiotics) lesions nickel AdvReac Mild Itching Verified 07/31/24 14:04 Family History no significant family his Surgical History History of appendectomy H/O unilateral oophorectomy Social History household members: none housing: house Smoking Status: Current every day smoker tobacco type: cigarettes ROS <ARIAN Mckinney - Last Filed: 07/31/24 19:53> ROS ED ROS Narrative Constitutional: Negative for fever, chills, malaise. CVS: Negative for chest pain. Respiratory: Negative for shortness of breath. GI: Positive for abdominal discomfort. No nausea or vomiting. : Negative for dysuria, hematuria or frequency. EXAM <ARIAN Mckinney - Last Filed: 07/31/24 19:53> Physical Exam Narrative Exam Narrative: CONST: Patient sitting in no acute distress. EYES: Normal inspection. NECK: Normal inspection. RESP: No respiratory distress, CTAB. CVS: Regular rate and rhythm, no murmur, no gallop. ABD: Soft with bilateral lower quadrant tenderness, no guarding or rebound, nondistended. Back: Normal inspection, no CVA tenderness. No midline tenderness or step-offs. SKIN: Color normal, no rash, warm, dry, intact. EXTREMITIES: Normal appearance, no pedal edema. NEURO: Alert and answering questions appropriately. PSYCH: Normal affect. Const Vital Signs: 07/31/24 14:01 Temperature 97 F L Temperature Source Oral Pulse Rate 95 Respiratory Rate 16 Blood Pressure 154/95 H Blood Pressure Mean 114 Pulse Ox 94 Oxygen Delivery Method Room Air <Dr. Wallace Shaw, DO - Last Filed: 07/31/24 20:34> Physical Exam Const Vital Signs: 07/31/24 14:01 Temperature 97 F L Temperature Source Oral Pulse Rate 95 Respiratory Rate 16 Blood Pressure 154/95 H Blood Pressure Mean 114 Pulse Ox 94 Oxygen Delivery Method Room Air MDM <ARIAN Mckinney - Last Filed: 07/31/24 19:53> [facility] MDM Narrative Medical decision making narrative: Differential includes but not limited to musculoskeletal low back pain, UTI, intra-abdominal process Patient presents with complaint of abdominal bloating and bilateral lumbar pain over the last week. No trauma. She appears well and nontoxic. Vital signs stable. She has a normal cardiopulmonary exam. She has mild bilateral lower abdominal tenderness without peritoneal signs. There is no reproducible tenderness of her back. Lower extremity MSPs and reflexes are intact. She has no red flag signs concerning for cauda equina syndrome or epidural abscess. I ordered blood work and CT scans of the abdomen/pelvis and lumbar spine. Overall labs are unremarkable. Urinalysis negative. CT shows no acute findings. There is incidental pancreatic duct dilation which I informed her of and will need outpatient follow-up. There is lumbar degeneration without acute fracture. She felt better after IV morphine, Toradol, and Zofran. I recommended [id number] pain relievers and follow-up with her primary care doctor. She was discharged in stable condition. Lab Data Attestation: I reviewed the patient's lab results. Labs: Laboratory Results - last 24 hr 07/31/24 07/31/24 15:26 16:15 WBC 5.1 RBC 5.60 H Hgb 16.4 H Hct 48.6 H MCV 86.8 MCH 29.3 MCHC 33.7 RDW Std Deviation 45.3 H RDW Coeff of Alida 14.2 Plt Count 174 MPV 11.1 Immature Gran % (Auto) 0.200 Neut % (Auto) 72.1 H Lymph % (Auto) 15.1 L Peach % (Auto) 10.8 H Eos % (Auto) 1.2 Baso % (Auto) 0.6 Absolute Neuts (auto) 3.7 Absolute Lymphs (auto) 0.77 L Nucleated RBC % 0 Sodium 140 Potassium 4.1 Chloride 102 Carbon Dioxide 24.1 Anion Gap 14 BUN 14 Creatinine 1.05 Estim Creat Clear Calc 41.54 L Est GFR (MDRD) Non-Af 55 L BUN/Creatinine Ratio 13.5 Glucose 115 H Calcium 9.6 Urine Color Yellow Urine Clarity Clear Urine pH 6.0 Ur Specific Bradshaw 1.015 Urine Protein 15 H Urine Glucose (UA) Normal Urine Ketones Negative Urine Occult Blood 10 H Urine Nitrite Negative Urine Bilirubin Negative Urine Urobilinogen Normal Ur Leukocyte Esterase Negative Urine RBC 0 SEEN Urine WBC 0-5 SEEN Ur Squamous Epith Cells 0 SEEN Urine Bacteria 0 SEEN Urine Mucus 0 SEEN Radiography Diagnostic Testing: Clinical Impression(s) from Imaging Studies Abdomen/Pelvis CT 07/31/24 15:40 IMPRESSION: 1. No acute findings. 2. Mild dilatation of the proximal main pancreatic duct without visible obstructing process. Consider outpatient MRI abdomen with and without contrast and with MRCP. Comparison with any outside imaging may also be helpful to establish stability. 3. 3 mm LEFT lower lobe nodule, statistically benign and requiring no specific follow-up in a low risk patient. Otherwise, recommend follow-up CT chest in one year per the Fleischner society recommendations for pulmonary nodule follow-up, presuming no history of malignancy or known immunosuppression. 4. Mild splenomegaly. 5. Additional description as above. Reading Location: [facility] Lumbar Spine CT 07/31/24 15:40 IMPRESSION: 1. Demineralization without lumbar spinal fracture or acute malalignment identified. 2. Additional description as above. Reading Location: [facility] <Dr. Wallace Shaw, DO - Last Filed: 07/31/24 20:34> MDM MDM Narrative Medical decision making narrative: Differential includes but not limited to musculoskeletal low back pain, UTI, intra-abdominal process Patient presents with complaint of abdominal bloating and bilateral lumbar pain over the last week. No trauma. She appears well and nontoxic. Vital signs stable. She has a normal cardiopulmonary exam. She has mild bilateral lower abdominal tenderness without peritoneal signs. There is no reproducible tenderness of her back. Lower extremity MSPs and reflexes are intact. She has no red flag signs concerning for cauda equina syndrome or epidural abscess. I ordered blood work and CT scans of the abdomen/pelvis and lumbar spine. Overall labs are unremarkable. Urinalysis negative. CT shows no acute findings. There is incidental pancreatic duct dilation which I informed her of and will need outpatient follow-up. There is lumbar degeneration without acute fracture. She felt better after IV morphine, Toradol, and Zofran. I recommended [id number] pain relievers and follow-up with her primary care doctor. She was discharged in stable condition. ED attending note: I evaluated the patient in conjunction with the LAX[facility]. I agree with his/her statements and above findings. I have personally performed a face to face assessment of the patient and have reviewed the LAXMI Note. I performed a substantive portion of the visit including all aspects of the following. I personally saw the patient performed chart review, physical exam, reviewed labs, imaging (if obtained), and formulated a treatment and management plan. This note was generated with [employer] dictation software. It may contain incorrect words, spelling, and punctuation that were not noted in review of the chart prior to signing. Lab Data Labs: Laboratory Results - last 24 hr 07/31/24 07/31/24 15:26 16:15 WBC 5.1 RBC 5.60 H Hgb 16.4 H Hct 48.6 H MCV 86.8 MCH 29.3 MCHC 33.7 RDW Std Deviation 45.3 H RDW Coeff of Alida 14.2 Plt Count 174 MPV 11.1 Immature Gran % (Auto) 0.200 Neut % (Auto) 72.1 H Lymph % (Auto) 15.1 L Peach % (Auto) 10.8 H Eos % (Auto) 1.2 Baso % (Auto) 0.6 Absolute Neuts (auto) 3.7 Absolute Lymphs (auto) 0.77 L Nucleated RBC % 0 Sodium 140 Potassium 4.1 Chloride 102 Carbon Dioxide 24.1 Anion Gap 14 BUN 14 Creatinine 1.05 Estim Creat Clear Calc 41.54 L Est GFR (MDRD) Non-Af 55 L BUN/Creatinine Ratio 13.5 Glucose 115 H Calcium 9.6 Urine Color Yellow Urine Clarity Clear Urine pH 6.0 Ur Specific Bradshaw 1.015 Urine Protein 15 H Urine Glucose (UA) Normal Urine Ketones Negative Urine Occult Blood 10 H Urine Nitrite Negative Urine Bilirubin Negative Urine Urobilinogen Normal Ur Leukocyte Esterase Negative Urine RBC 0 SEEN Urine WBC 0-5 SEEN Ur Squamous Epith Cells 0 SEEN Urine Bacteria 0 SEEN Urine Mucus 0 SEEN Radiography Diagnostic Testing: Clinical Impression(s) from Imaging Studies Abdomen/Pelvis CT 07/31/24 15:40 IMPRESSION: 1. No acute findings. 2. Mild dilatation of the proximal main pancreatic duct without visible obstructing process. Consider outpatient MRI abdomen with and without contrast and with MRCP. Comparison with any outside imaging may also be helpful to establish stability. 3. 3 mm LEFT lower lobe nodule, statistically benign and requiring no specific follow-up in a low risk patient. Otherwise, recommend follow-up CT chest in one year per the Fleischner society recommendations for pulmonary nodule follow-up, presuming no history of malignancy or known immunosuppression. 4. Mild splenomegaly. 5. Additional description as above. Reading Location: [facility] Lumbar Spine CT 07/31/24 15:40 IMPRESSION: 1. Demineralization without lumbar spinal fracture or acute malalignment identified. 2. Additional description as above. Reading Location: [facility] Discharge Plan Triage Chief Complaint: Back ED Midlevel Provider: Dixie Jimenez ED Provider: Valeria,Wallace Dx/Rx/DC Orders Clinical Impression: Low back pain Instructions: Back Basics: A Healthy Spine Prescriptions: No Action sertraline 100 mg tablet 200 mg PO DAILY cholecalciferol (vitamin D3) [Vitamin D3] 25 mcg (1,000 unit) capsule 25 mcg PO DAILY atorvastatin 40 mg tablet 40 mg PO QHS alendronate 70 mg tablet 70 mg PO QWEEK hydrochlorothiazide 25 mg tablet 25 mg PO DAILY Primary Care Provider: Care Physician,No Primary Referrals: Care Physician,No Primary [Primary Care Provider] - Activity Restrictions/Additional Instructions: Your blood work and urine was normal. Your CT scan shows no acute findings. You do have arthritis and narrowing in the spine which could be causing your pain. I recommend Tylenol and ibuprofen and follow-up with your primary care doctor. The CT scan also shows the pancreas duct is dilated or swollen which needs outpatient evaluation. Talk with your primary care doctor about if getting an outpatient MRI of the abdomen or MRCP is appropriate. Print Language: Sami Disposition Disposition: Home, Self Care Discharge Date/Time: 07/31/24 17:41
[2024-07-31] MEDS: Ondansetron 4 MG/2 ML Vial IV (15:22)
[2024-07-31] MEDS: Morphine 4 MG/ML Syringe IV (15:23)
--- NOTE | 2024-07-31 15:40 | CT_ITS ---
PROCEDURE: SPINE LUMBAR WITHOUT CONTRAST 07/31/2024 REASON FOR EXAM: BACK PAIN R/O FRACTURE TECHNIQUE: CT lumbar spine was performed without IV contrast. Multiplanar reformats were generated. One or more dose reduction techniques were used (e.g., Automated exposure control, adjustment of the mA and/or kV according to patient size, use of iterative reconstruction technique COMPARISON: None. RADIATION DOSE SUMMARY: CTDlvol: 9.46+ 12.15+ 5.23 mGy DLP: 526.91 mGycm Note that this represents the sum of the CT lumbar spine and CT abdomen and pelvis. FINDINGS: No lumbar spinal fracture or acute malalignment identified. Vertebral body heights are preserved. Thoracolumbar dextroscoliosis. Suspect demineralization. Variable spinal canal stenosis up to at least mild at L2-L3. Variable foraminal stenoses up to at least mild/moderate on the RIGHT at L4-L5 related to prominent disc bulging/protrusion, probably contacting the exiting nerve root. These findings are suboptimally delineated by CT. Paraspinal soft tissues better evaluated on concurrent separately dictated CT abdomen and pelvis. Please refer to that report. CT/Spine Lumbar without Contrast IMPRESSION: 1. Demineralization without lumbar spinal fracture or acute malalignment identi fied. 2. Additional description as above. Reading Location: [id number]
--- NOTE | 2024-07-31 15:40 | CT_ITS ---
PROCEDURE: ABDOMEN/PELVIS W IV CONT ONLY 07/31/2024 REASON FOR EXAM: ABDOMINAL PAIN, LOW BACK PAIN TECHNIQUE: CT abdomen and pelvis was performed with IV contrast. Multiplanar reformats were generated. PATIENT PREPARATION: Per protocol ORAL CONTRAST TYPE: None. CONTRAST: Isovue-300 VOLUME: 100 mL One or more dose reduction techniques were used (e.g., Automated exposure control, adjustment of the mA and/or kV according to patient size, use of iterative reconstruction technique. RADIATION DOSE SUMMARY: CTDlvol: 9.46+ 12.15+ 5.23 mGy DLP: 526.91 mGycm Note this represents a total of the CT lumbar spine and CT abdomen and pelvis. COMPARISON: None. FINDINGS: Lung bases: Mild atelectasis/scarring. 3 mm subpleural LEFT lower lobe nodule. Liver: Subcentimeter LEFT lobe hypodensity too small to characterize likely a cyst or hemangioma in the absence of known malignancy. Spleen: Mild splenomegaly, 14.7 cm coronal.. Gallbladder: Cholelithiasis. Pancreas: Segmental dilatation of the main pancreatic duct along the pancreatic head to 6 mm. Adrenals: Unremarkable. Kidneys: Unremarkable. Bowel: Diverticulosis. Appendectomy. Lymph nodes: Unremarkable. Vasculature: Atherosclerosis. Mild abdominal aortic ectasia 22.2 cm orthogonal to the long axis. Peritoneum: Unremarkable. Bladder: Underdistended and suboptimally evaluated, grossly unremarkable. Reproductive Organs: Unremarkable. Body Wall: Tiny fat containing umbilical hernia.. Bones: Suspect demineralization. Thoracolumbar scoliosis, otherwise the lumbar spine lumbar spine is better evaluated on separately dictated dedicated CT lumbar spine. CT/Abdomen/Pelvis W IV Cont ONLY IMPRESSION: 1. No acute findings. 2. Mild dilatation of the proximal main pancreatic duct without visible obstruc ting process. Consider outpatient MRI abdomen with and without contrast and with MRCP. Comparison with any outside imaging m ay also be helpful to establish stability. 3. 3 mm LEFT lower lobe nodule, statistically benign and requiring no specific follow-up in a low risk patient. Otherwise, recommend follow-up CT chest in one year per the Fleischner society recommendat ions for pulmonary nodule follow-up, presuming no history of malignancy or known immunosuppression. 4. Mild splenomegaly. 5. Additional description as above. Reading Location: [facility]
[2024-07-31 15:58] LABS: Absolute Lymphocyte Count 0.77 X10^3/uL (0.83-4.51); Absolute Neutrophil Count 3.7 X10^3/uL (2.0-7.7); Basophil# 0.03 X10^3/uL; Basophil% 0.6 % (0-1); Eosinophil# 0.06 X10^3/uL; Eosinophils% 1.2 % (0-5); Hematocrit 48.6 % (37-47); Hemoglobin 16.4 g/dL (12.0-15.0); Lymphocyte # 0.77 X10^3/ul (0.83-4.51); Lymphocyte % 15.1 % (19-41); Mean Corp Hgb Conc 33.7 g/dL (32-36); Mean Corpuscular Hgb 29.3 pg (27.0-32.0); Mean Corpuscular Volume 86.8 fL (81-99); Mean Platelet Vol. 11.1 fl (6.2-12.0); Monocyte# 0.55 X10^3/uL; Monocyte% 10.8 % (0-10); NRBC Flagged by Analyzer 0 % (0-5); Neutrophil # 3.67 X10^3/uL (2.7-7.7); Neutrophil % 72.1 % (47-70); Platelet Count 174 K/mm3 (150-450); RBC Distribution Width CV 14.2 % (11.6-14.6); RBC Distribution Width SD 45.3 fl (35.1-43.9); White Blood Count 5.1 K/mm3 (4.4-11.0)
[2024-07-31 16:22] LABS: Bacteria 0 SEEN /hpf (None Seen); Mucous, Urine 0 SEEN /hpf (<or=2+); Red Blood Cells-Urine 0 SEEN /hpf (0-5); Squamous Epithelial Cells - UA 0 SEEN /hpf (5-10)
[2024-07-31 16:36] LABS: Color, Urine Yellow (Yellow); Glucose, Dipstick Normal (Normal); Ketone-Dipstick Negative (Negative); Leukocyte Esterase-Dipstick Negative /ul (Negative); Nitrite-Dipstick Negative (Negative); Occult Blood-Urine 10 /ul (Negative); Protein-Dipstick 15 mg/dl (Negative); Specific Gravity, Urine 1.015 (1.002-1.030); Urine Bilirubin Dipstick Negative (Negative); Urine Clarity Clear (Clear); Urine Urobilinogen Normal (Normal)
[2024-07-31 16:42] LABS: Anion Gap 14 (5-15); BUN 14 mg/dL (4-19); BUN/Creat Ratio 13.5 RATIO (10-20); Calcium,Total 9.6 mg/dL (7.6-11.0); Carbon Dioxide 24.1 mmol/L (21.0-32.0); Chloride 102 mmol/L (98-108); Creatinine, Serum 1.05 mg/dL (0.70-1.20); EST Glomerular Filtration Rate 55 (>60); Estimated Creatinine Clearance 41.54 ml/min (50-250); Glucose 115 mg/dL (70-99); Potassium 4.1 mmol/L (3.3-5.1); Sodium Level 140 mmol/L (133-145)
[2024-07-31 16:47] LABS: White Blood Cells 0-5 SEEN /hpf (0-5)
[2024-07-31] MEDS: Ketorolac 15 MG/ML Vial IV (16:49)
--- NOTE | 2024-07-31 17:39 | ED.RN ---
Pt states she is tired of waiting, doesn't need results from all of testing, I'm just ready to go. Pt declines waiting despite attempted redirection by this RN.
== END 2024-07-31 17:41 | disposition home or self-care (01) ==
PROVIDERS: Physician Assistant; Emergency Provider Emergency Medicine; Visit Provider Emergency Medicine
DX: M54.50 Low back pain, unspecified (principal); F17.210 Nicotine dependence, cigarettes, uncomplicated; I10 Essential (primary) hypertension; E78.5 Hyperlipidemia, unspecified; R14.0 Abdominal distension (gaseous); Z79.899 Other long term (current) drug therapy; Z90.49 Acquired absence of other specified parts of digestive tract; Z90.721 Acquired absence of ovaries, unilateral
CPT/HCPCS: 72131; 74177; 80048; 81001; 85025; 96374; 96375; 99283; Q9967; A4216; J2405

== ENCOUNTER 2024-11-24 12:55 | Emergency (ER) | payer MEDICARE, SELFPAY ==
[2024-11-24 12:56] VITALS: BP 157/96; PULSE 94; RESP 16; TEMP 36.8; O2SAT 99; BMI 19.8
== END 2024-11-24 14:02 | disposition left against medical advice (07) ==
LOC: ED 14:10
DX: I10 Essential (primary) hypertension (principal)

== ENCOUNTER 2024-11-26 09:28 | Emergency (ER) | payer MEDICARE, SELFPAY ==
[2024-11-26] VITALS (9 sets, daily range): BP systolic 179–189; BP diastolic 87–114; PULSE 69–80; RESP 14–20; TEMP 36.9; O2SAT 95–100; BMI 19.7
--- NOTE | 2024-11-26 10:37 | US_ITS ---
PROCEDURE: GALLBLADDER 11/26/2024 REASON FOR EXAM: PAIN COMPARISON: Previous CTs FINDINGS: Liver: Measures 15.1 cm with normal echogenicity. Stable septated 1.0 cm cyst. However, extrinsic to the left lobe of the liver is a complex oval cystic structure measuring 15 x 8.2 x 5.3 cm not seen on previous CTs and of uncertain etiology. The pointing machine operator notes it appears to have a feeding vessel. Gallbladder: Solitary 1.5 x 1.6 x 1.1 cm gallstone noted. No wall thickening or pericholecystic inflammation or fluid. Gallbladder wall measures 1.9 cm. Software Implementation Project Manager notes a negative Jacobo's sign Common bile duct: Normal measuring 3.5 mm. Pancreas: Visualized portions are sonographically unremarkable. Other: Right kidney measures 9.8 x 5.1 x 3.4 cm. Cortex measures 0.8 cm. No hydronephrosis, calculi or mass. US/Gallbladder IMPRESSION: Extrinsic to the left lobe of the liver is an anechoic area with an apparent fe bubba vessel measuring 15 x 8.2 x 5.3 cm this is of uncertain etiology, was not seen on a previous CT. This should be further eval uated with cross-sectional imaging. Cholelithiasis, no sonographic evidence of cholecystitis Sonographically normal right kidney and pancreas Reading Location: [id number]
--- NOTE | 2024-11-26 10:37 | EKG12_ITS ---
Test Reason : CHEST PRESSURE Blood Pressure : */* mmHG Vent. Rate : 74 BPM Atrial Rate : 74 BPM P-R Int : 166 ms QRS Dur : 120 ms QT Int : 414 ms P-R-T Axes : 75 -65 52 degrees QTcB Int : 459 ms Normal sinus rhythm Possible Left atrial enlargement Right bundle branch block Left anterior fascicular block Bifascicular block Abnormal ECG Confirmed by RYLEE MORIN MD ([id number]), staff editor CAROLYN AVALOS ([id number]) on 11/27/2024 9:47:04 AM Referred By: VAHID Confirmed By: RYLEE MORIN MD
--- NOTE | 2024-11-26 10:38 | EX.ED.DYSGE1 ---
HPI History of Present Illness Chief Complaint: General Illness Narrative Narrative: Patient is a 74-year-old female who presented to the emergency department with chief complaint of abdominal pain. Patient states that back in July or August she had an appendectomy. She pulled out her paperwork and was reading the the list of her past medical history and states that she thinks that it may be her gallstones acting up it could be her diverticulosis acting up she is not sure exactly what is going on. Patient notes that her pain in the upper portion of her abdomen started worsening recently prompting her to come here for further evaluation management. States that she was here the other day but ultimately left secondary to long wait times. Patient states that she has not seen a physician in a very long time and when inquiring when the last time she saw She states it was 5 months ago. [facility] Medical History Diverticulosis Cholelithiasis HTN (hypertension) Hyperlipemia Suicide attempt Depression Back pain Home Medications ?Medication ?Instructions ?Recorded ?Last Taken ?Type alendronate 70 mg tablet 70 mg PO QWEEK 10/19/23 Unknown History atorvastatin 40 mg tablet 40 mg PO QHS cholesterol 10/19/23 Unknown History cholecalciferol (vitamin D3) 25 25 mcg PO DAILY 10/19/23 Unknown History mcg (1,000 unit) capsule (Vitamin D3) hydrochlorothiazide 25 mg tablet 25 mg PO DAILY 10/19/23 Unknown History sertraline 100 mg tablet 200 mg PO DAILY 10/19/23 11/26/24 History acetaminophen 650 mg 1,300 mg PO Q6H PRN pain 11/26/24 11/25/24 History tablet,extended release (8 Hour Pain Reliever) Allergy/AdvReac Type Severity Reaction Status Date / Time Sulfa (Sulfonamide Allergy Mucosal Verified 11/26/24 09:30 Antibiotics) lesions nickel AdvReac Mild Itching Verified 11/26/24 09:30 Surgical History History of appendectomy H/O unilateral oophorectomy Social History household members: none housing: house Smoking Status: Current every day smoker tobacco type: cigarettes ROS ROS ED ROS Narrative Constitutional: Denies any fevers, chills, headaches Eyes: Denies change in vision double vision blurry vision Cardiovascular: Denies any chest pain or palpitations Respiratory: Denies coughing wheezing shortness of breath Abdomen: Complains of abdominal pain as noted above denies nausea vomit diarrhea : Denies any urinary symptoms Neurological: Denies any numbness, weakness, tingling Musculoskeletal: Denies any back pain Skin: Denies any rashes or lesions EXAM Physical Exam Narrative Exam Narrative: General: Patient lying in bed rest comfortably did not appear to be acute distress Head: Atraumatic, normocephalic Eyes: PERRL bilaterally, EOMI bilateral, no conjunctival injection noted Neck: Soft, supple, trachea midline Cardiovascular: Regular rate and rhythm Respiratory: Clear to auscultation bilaterally Abdomen: Soft, nondistended, tender to palpation the right upper quadrant no rebound or guarding exam Extremities: +5/5 strength noted in the bilateral upper and lower extremities Neurological: Patient following commands that she was at [facility] year is 2024 Skin: Warm, dry, tact no rashes or lesions noted Const Vital Signs: 11/26/24 09:30 11/26/24 09:38 11/26/24 09:53 Temperature 98.4 F Temperature Source Temporal Pulse Rate 75 75 Respiratory Rate 18 20 H Respiratory Effort Normal Non-Labored Blood Pressure 179/96 H 188/101 H Blood Pressure Mean 123 130 Pulse Ox 100 97 Oxygen Delivery Method Room Air Room Air 11/26/24 11:08 11/26/24 12:25 11/26/24 12:26 Temperature Temperature Source Pulse Rate 79 69 70 Respiratory Rate 16 Respiratory Effort Blood Pressure 187/100 H 189/97 H 189/87 H Blood Pressure Mean 129 124 121 Pulse Ox 95 98 Oxygen Delivery Method Room Air Room Air 11/26/24 12:30 11/26/24 12:45 11/26/24 13:00 Temperature Temperature Source Pulse Rate 70 71 75 Respiratory Rate Respiratory Effort Blood Pressure Blood Pressure Mean Pulse Ox 96 95 96 Oxygen Delivery Method Room Air 11/26/24 13:35 Temperature Temperature Source Pulse Rate 80 Respiratory Rate 14 Respiratory Effort Blood Pressure 186/114 H Blood Pressure Mean 138 Pulse Ox 99 Oxygen Delivery Method Room Air MDM MDM MDM Narrative Medical decision making narrative: Patient is a 74-year-old female who presented to the emergency department with multiple complaints including concerned that her gallbladder is infected. On the differential diagnosis includes but not limited to cholecystitis, pancreatitis, bowel obstruction. Once workup is obtained reviewed she will be reevaluated. Patient to get a liter of IV fluids. Patient CBC was reviewed showed no evidence leukocytosis white blood count normal at 6.8, hemosixteen 0.6, plate count 179. Patient sodium normal 130, potassium normal at 4, creatinine was 0.87. Patient AST and ALT are 24 and 12 respectively. Patient lipase normal at 40, urinalysis reviewed showed no evidence of infection. Patient chest x-ray reviewed by myself and by radiology which showed mildly hyperinflated lungs with chronic interstitial changes no superimposed acute cardiopulmonary processes noted. Nursing notified me that the patient requested to leave AGAINST MEDICAL ADVICE as her ultrasound is pending. She states that she has been here too long and does not want to wait any longer. Advised her that there is chance that she does have a gallbladder infection that will worsen ultimately leading to her . She verbalized understanding of this and states that she still wants to go home. Patient left AGAINST MEDICAL ADVICE. During dictation of this note the ultrasound returned and it shows extrinsic to the lobe of the liver is an anechoic area with apparent feeder vessel measuring 15 x 8.2 x 5.3 cm is of unknown certain etiology was not seen on previous CT scan. Cholelithiasis no sonographic evidence of cholecystitis. Lab Data Labs: Laboratory Results - last 24 hr 11/26/24 11/26/24 09:55 11:26 WBC 6.8 RBC 5.61 H Hgb 16.6 H Hct 48.1 H MCV 85.7 MCH 29.6 MCHC 34.5 RDW Std Deviation 45.1 H RDW Coeff of Alida 14.3 Plt Count 179 MPV 11.0 Immature Gran % (Auto) 0.400 Neut % (Auto) 76.7 H Lymph % (Auto) 11.9 L [place] % (Auto) 9.5 Eos % (Auto) 0.9 Baso % (Auto) 0.6 Absolute Neuts (auto) 5.2 Absolute Lymphs (auto) 0.81 L Nucleated RBC % 0 Sodium 138 Potassium 4.0 Chloride 100 Carbon Dioxide 25.0 Anion Gap 14 BUN 11 Creatinine 0.87 Estim Creat Clear Calc 48.81 L Est GFR (MDRD) Non-Af 69 BUN/Creatinine Ratio 12.1 Glucose 101 H Calcium 9.7 Total Bilirubin 0.53 AST 24 ALT 12 Alkaline Phosphatase 135 H Total Protein 8.0 Albumin 4.5 Globulin 3.4 Albumin/Globulin Ratio 1.3 Lipase 40 Urine Color Yellow Urine Clarity Clear Urine pH 7.0 Ur Specific [place] 1.010 Urine Protein 15 H Urine Glucose (UA) Normal Urine Ketones Negative Urine Occult Blood Negative Urine Nitrite Negative Urine Bilirubin Negative Urine Urobilinogen Normal Ur Leukocyte Esterase Negative Urine RBC 0 SEEN Urine WBC 0 SEEN Ur Squamous Epith Cells 0 SEEN Urine Bacteria 0 SEEN Urine Mucus 0 SEEN Radiography Diagnostic Testing: Clinical Impression(s) from Imaging Studies Gallbladder Ultrasound 11/26/24 10:37 IMPRESSION: Extrinsic to the left lobe of the liver is an anechoic area with an apparent feeder vessel measuring 15 x 8.2 x 5.3 cm this is of uncertain etiology, was not seen on a previous CT. This should be further evaluated with cross-sectional imaging. Cholelithiasis, no sonographic evidence of cholecystitis Sonographically normal right kidney and pancreas Reading Location: [facility] Chest X-Ray 11/26/24 11:22 IMPRESSION: Mildly hyperexpanded lungs with chronic interstitial changes, no superimposed acute pulmonary process Reading Location: [id number] Discharge Plan Triage Chief Complaint: General Illness ED Provider: Evangelist Vela Dx/Rx/DC Orders Clinical Impression: Abdominal pain, History of appendectomy, Hypertension Prescriptions: No Action acetaminophen [8 Hour Pain Reliever] 650 mg tablet extended release 1,300 mg PO Q6H PRN (Reason: pain) sertraline 100 mg tablet 200 mg PO DAILY cholecalciferol (vitamin D3) [Vitamin D3] 25 mcg (1,000 unit) capsule 25 mcg PO DAILY atorvastatin 40 mg tablet 40 mg PO QHS alendronate 70 mg tablet 70 mg PO QWEEK hydrochlorothiazide 25 mg tablet 25 mg PO DAILY Primary Care Provider: Care Physician,No Primary Referrals: Care Physician,No Primary [Primary Care Provider] - Print Language: Sami Disposition Disposition: Against Medical Advice Discharge Date/Time: 11/26/24 14:02
--- NOTE | 2024-11-26 10:47 | CM.ED ---
Social Work Date of referral: 11/26/24 Reason for referral: No Advanced Care Directives (ACD's) on file Referred by: Social Work Identification Patient provided consent for social work visit. Braille Transcriber requested a copy of patient's ACD's. Patient stated it has all changed and requested additional information on getting ACD's updated. Braille Transcriber provided patient with a written handout from [facility] on how to make an appointment to get completed through the hospital which patined accepted and expressed appreciation for. Annel Gomez, PRODUCTION STAFF WORKER, STUDENT AFFAIRS VICE PRESIDENT
[2024-11-26 11:04] LABS: Hematocrit 48.1 % (37-47); Hemoglobin 16.6 g/dL (12.0-15.0); Immature Granulocytes Count 0.030 X10^3/uL (0.0-0.0); Mean Corp Hgb Conc 34.5 g/dL (32-36); Mean Corpuscular Volume 85.7 fL (81-99); Mean Platelet Vol. 11.0 fl (6.2-12.0); NRBC Flagged by Analyzer 0 % (0-5); Platelet Count 179 K/mm3 (150-450); RBC Distribution Width CV 14.3 % (11.6-14.6); RBC Distribution Width SD 45.1 fl (35.1-43.9); Red Blood Count 5.61 M/mm3 (4.2-5.4); White Blood Count 6.8 K/mm3 (4.4-11.0)
[2024-11-26 11:20] LABS: AST(SGOT) 24 U/L (<=31); Alanine Aminotransfer ALT/SGPT 12 U/L (<=34); Albumin, Serum 4.5 g/dL (3.4-4.8); Alkaline Phosphatase 135 U/L (35-104); Anion Gap 14 (5-15); BUN 11 mg/dL (4-19); BUN/Creat Ratio 12.1 RATIO (10-20); Calcium,Total 9.7 mg/dL (7.6-11.0); Carbon Dioxide 25.0 mmol/L (21.0-32.0); Chloride 100 mmol/L (98-108); Estimated Creatinine Clearance 48.81 ml/min (50-250); Globulin 3.4 g/dL (2.2-4.2); Glucose 101 mg/dL (70-99); Lipase 40 U/L (13-75); Potassium 4.0 mmol/L (3.3-5.1)
--- NOTE | 2024-11-26 11:22 | RAD_ITS ---
PROCEDURE: CHEST PA AND LATERAL 11/26/2024 REASON FOR EXAM: COUGH TECHNIQUE: CHEST PA AND LATERAL COMPARISON: 07/18/2018 FINDINGS: Hardware: EKG leads overlie the chest Heart: The heart size is normal. Mediastinum: The mediastinal contour is unremarkable. Lungs: Lungs are mildly hyperexpanded with chronic interstitial changes, no superimposed acute process or significant interval change. Bones: Degenerative changes are identified within the thoracic spine. RAD/Chest PA and Lateral IMPRESSION: Mildly hyperexpanded lungs with chronic interstitial changes, no superimposed a cute pulmonary process Reading Location: [id number]
[2024-11-26 11:29] LABS: Mucous, Urine 0 SEEN /hpf (<or=2+); Red Blood Cells-Urine 0 SEEN /hpf (0-5); Squamous Epithelial Cells - UA 0 SEEN /hpf (5-10)
[2024-11-26 11:33] LABS: Color, Urine Yellow (Yellow); Glucose, Dipstick Normal (Normal); Ketone-Dipstick Negative (Negative); Leukocyte Esterase-Dipstick Negative /ul (Negative); Nitrite-Dipstick Negative (Negative); Occult Blood-Urine Negative /ul (Negative); Protein-Dipstick 15 mg/dl (Negative); Specific Gravity, Urine 1.010 (1.002-1.030); Urine Bilirubin Dipstick Negative (Negative)
[2024-11-26] MEDS: 0.9% Normal Saline (1000mL) 1,000 ML 999 ML IV (12:23)
--- OUTSIDE RECORDS SUMMARY | 2024-11-26 12:30 | XMS RPT_ITS | CCD ---
Author Organization [facility] Care Team Providers Care Vice President Of Sales Name Role Phone Podlogar COLLAR STAY FUSER TENDER.Dinorah CUMMINGS Primary Care Provider Unavailable Primary Care Provider Unavailabl e Podlogar COLLAR STAY FUSER TENDER.Dinorah CUMMINGS Primary Care Provider Care Physician, No Primary Primary Care Provider Unavailable Dr. Wallace Shaw DO Emergency Provider [phone] Robotmina, Daksha Attending Unavailable Care Physician, No Primary Primary Care Unava ilable Care Physician, No Primary Primary Care Unava ilable Robotham, Daksha Admitting Unavailable Robotham, Daksha Attending Unavailable Care Physician, No Primary Primary Care Unava ilable Wallace Shaw Attending Unavailable Care Physician, No Primary Primary Care Unava ilable Care Physician, No Primary Referring Unava ilable Robotham, Daksha Attending Unavailable Care Physician, No Primary Primary Care Unava ilable Gladis Kirk Attending Unavailable Robotham, Daksha Admitting Unavailable Robotham, Daksha Consulting Unavailable Podlogar COLLAR STAY FUSER TENDER.Dinorah CUMMINGS Primary Care Provider Dr. Wallace Shaw DO Attending Provider Provider, Ed Physician Emergency Provider Unavai lable Allergies Allergy Classification Reported Allergen(s) Allergy Type Date of Onset Reaction(s) Facility Lactase (1 source) Lactase Drug Allergy 5 GI Upset [facility] Latex (1 source) Latex Substance Allergy 5 Rash [facility] (20 sources) Lactase Drug Allergy 5 GI Upset [facility] (20 sources) Latex Drug Allergy 5 Rash [facility] (20 sources) Bees Allergy to substance 5 Shortness of Breath [facility] (2 sources) nickel Drug Allergy 5 Itching [facility] (2 sources) Sulfonamides (Antibiotic) Allergy to substance 5 Mucosal lesions [facility] (1 source) nickel Drug Allergy 5 [facility] (1 source) Sulfonamides (Antibiotic) Drug allergy (disorder) 5 [facility] Medications Current Medications Medication Drug Class(es) Dates Sig (Normalized) Sig (Original) alendronic acid 70 mg oral tablet (20 sources) Bisphosphonate Start: 11-13-2019 End: 09-29-2024 take 1 tablet by mouth every week Alendronate 70 mg tablet Active 70 mg PO EVERY WEEK October 19, 2023 12:00am Comment on above: Take 1 tablet by kimmie th one time a week. Take with a full glass of water, on an empty stomach; do NOT lie down for 30minutes. aspirin 81 mg delayed release oral tablet (20 sources) Platelet Aggregation Inhibitor, Nonsteroidal Anti-inflammatory Drug Start: 03-07-2016 take 1 tablet by mouth once daily aspirin, enteric coated (ASPIRIN, ENTERIC COATED) 81 mg EC tablet Indications: Mixed hyperlipidemia Take 1 tablet by mouth once daily. 0 03/07/2016 Active Comment on above: Take 1 tablet by kimmie th once daily. atorvastatin 40 mg oral tablet (20 sources) HMG-CoA Reductase Inhibitor Start: 07-23-2023 End: 02-05-2025 take 1 tablet by mouth at bedtime Atorvastatin 40 mg tablet Active 40 mg PO AT BEDTIME October 19, 2023 12:00am cholesterol Start: 11-13-2019 End: 07-13-2022 take 1 tablet by mouth once daily at bedtime for hyperlipidemia atorvastatin (LIPITOR) 40 mg tablet Indications: Mixed hyperlipidemia Take 1 tablet by mouth daily at bedtime. For cholesterol. 90 tablet 3 07/13/2022 Active Comment on above: Take 1 tablet by kimmie th daily at bedtime. For cholesterol. Cane (20 sources) Start: 07-24-2020 Cane Indications: Unsteady gait when walking , Fall, initial encounter , Weakness of both lower extremities 1 Device as needed. 1 Each 07/24/2020 Active Start: 07-24-2020 Cane Indicatio ns: Unsteady gait when walking , Fall, initial encounter , Weakness of both lower extremities 1 Device as needed. 1 Each 0 07/24/2020 Active Comment on above: 1 Device as needed. cholecalciferol 0.025 mg oral capsule (20 sources) Vitamin D Start: 10-19-19 take 1 capsule by mouth once daily Cholecalciferol (Vitamin D3) (Vitamin D3) 25 mcg (1,000 unit) capsule Active 25 ug PO DAILY October 19, 2023 12:00am Start: 09-04-2020 take 2 capsules by m outh once daily Cholecalciferol, Vitamin D3, 25 mcg (1,000 unit) cap Take 2 capsules by mouth once daily. 09/04/2020 Active Comment on above: Take 2 capsules by m outh once daily. hydroCHLOROthiazide 25 mg oral tablet (20 sources) Thiazide Diuretic Start: End: take 1 tablet by mouth once daily Hydrochlorothiazide 25 mg tablet Active 25 mg PO DAILY October 19, 2023 12:00am Start: 09-22-2022 take 1 tablet by kimmie th once daily hydroCHLOROthiazide 25 mg tablet Take 1 tablet by mouth once daily. 30 tablet 5 09/22/2022 Active Start: 03-03-2021 End: 09-18-2022 take 1 tablet by mouth once daily hydroCHLOROthiazide (HYDRODIURIL, ESIDRIX) 25 mg tablet Take 1 tablet by mouth once daily. 30 tablet 5 01/05/2022 09/18/2022 Discontinued Comment on above: Take 1 tablet by kimmie th once daily. Miscellaneous Medical Supply (BLOOD PRESSURE CUFF) (20 sources) Start: 07-24-2020 Miscellaneous Medical Supply (BLOOD PRESSURE CUFF) Indications: Essential hypertension 1 Each once daily. Take BP daily in morning 1 Each 07/24/2020 Active Start: 07-24-2020 Miscellaneous Medical Supply (BLOOD PRESSURE CUFF) Indications: Essential hypertension 1 Each once daily. Take BP daily in morning 1 Each 0 07/24/2020 Active Comment on above: 1 Each once daily. T cora BP daily in morning sertraline 100 mg oral tablet (20 sources) Serotonin Reuptake Inhibitor Start: 04-30-2023 End: 02-01-2024 take 2 tablets by mouth once daily Sertraline 100 mg tablet Active 200 mg PO DAILY October 19, 2023 12:00am Start: 07-20-2022 take 2 tablets by mo prh once daily sertraline (ZOLOFT) 100 mg tablet Indications: Major depression, recurrent, chronic (HCC) Take 2 tablets by mouth once daily. 180 tablet 1 07/20/2022 Active Start: 07-22-2020 End: 07-20-2022 sertraline (ZOLOFT) 100 mg t ablet Indications: Major depression, recurrent, chronic (HCC) Take one tablet daily along with 50 mg tablet 90 tablet 0 07/10/2022 07/20/2022 Discontinued Start: 07-22-2020 End: 07-20-2022 take 1 tablet by mouth once daily sertraline (ZOLOFT) 50 mg tablet Indications: Anxiety with depression Take 1 tablet by mouth once daily. 90 tablet 0 07/13/2022 07/20/2022 Discontinued Comment on above: Take one tablet sean y along with 50 mg tablet Take 1 tablet by kimmie th once daily. Take 2 tablets by mo uth once daily. verapamil hydrochloride 180 mg extended release oral tablet (20 sources) Calcium Channel Crescencio Start: 07-23-2023 take 1 tablet by mouth once daily at bedtime verapamil SR (CALAN SR) 180 mg CR tablet Take 1 tablet by mouth daily at bedtime. 30 tablet 07/23/2023 Active Start: 10-15-2020 End: 07-10-2022 take 1 capsule by mouth once daily at bedtime verapamil ER 180 mg 24 hr capsule Take 1 capsule by mouth daily at bedtime. 90 capsule 0 07/10/2022 Active Start: 07-24-2020 End: 08-07-2020 take 1 tablet by mouth once daily at bedtime verapamil SR (CALAN SR, ISOPTIN SR) 120 mg CR tablet Indications: Essential hypertension Take 1 tablet by mouth daily at bedtime. 30 tablet 1 07/24/2020 08/07/2020 Discontinued Comment on above: Take 1 capsule by mo uth daily at bedtime. Take 1 tablet by kimmie th daily at bedtime. Completed/Discontinued Medications Medication Drug Class(es) Dates Sig (Normalized) Sig (Original) acetaminophen 325 mg / HYDROcodone bitartrate 5 mg oral tablet (4 sources) Opioid Agonist Start: 07-20-2018 End: 07-23-2018 Hydrocodone-Acetami nophen 1 TABLET tablet Discontinued 1 {tbl} PO EVERY 6 HOURS NEEDED as needed for Pain 10 3 0 July 20, 2018 12:00am July 22, 2018 12:00am July 23, 2018 12:08am Strain of shoulder Start: 02-03-2018 End: 02-06-2018 Hydrocodone-Acetaminophen 1 TABLET tablet Discontinued 1 {tbl} PO EVERY 6 HOURS NEEDED as needed for Pain 10 3 0 February 03, 2018 12:00am February 05, 2018 12:00am February 06, 2018 12:09am Periapical abscess with facial involvement Periapical abscess without sinus calcium carbonate 1500 mg / cholecalciferol 200 unt oral tablet (1 source) Vitamin D Start: 11-13-2019 End: 09-04-2020 take 1 tablet by mouth twice daily calcium carbonate 600 mg-cholecalciferol 200 units (CALCIUM 600 + D,3,) 600 mg(1,500mg) -200 unit tab Indications: Osteoporosis Take 1 tablet by mouth twice daily. 60 tablet 11 11/13/2019 09/04/2020 Discontinued cloNIDine hydrochloride 0.1 mg oral tablet (2 sources) Central alpha-2 Adrenergic Agonist Start: 07-18-2018 End: 10-19-2023 take 1 tablet by mouth twice daily Clonidine Hcl 0.1 MG tablet Discontinued 0.1 mg PO TWICE A DAY 20 0 July 18, 2018 12:00am October 19, 2023 3:55pm cyclobenzaprine hydrochloride 10 mg oral tablet (2 sources) Muscle Relaxant Start: 07-20-2018 End: 10-19-2023 take 1 tablet by mouth three times daily as needed for muscle spasms Cyclobenzaprine 10 MG tablet Discontinued 10 mg PO THREE TIMES A DAY as needed for Muscle Spasm 20 0 July 20, 2018 12:00am October 19, 2023 3:55pm ketorolac tromethamine 10 mg oral tablet (2 sources) Nonsteroidal Anti-inflammatory Drug, Cyclooxygenase Inhibitor Start: 07-20-2018 End: 10-19-2023 take 1 tablet by mouth every six hours as needed for pain Ketorolac 10 MG tablet Discontinued 10 mg PO EVERY 6 HOURS as needed for Pain 14 0 July 20, 2018 10:36am October 19, 2023 3:55pm lidocaine 0.05 mg/mg medicated patch (10 sources) Antiarrhythmic, Amide Local Anesthetic Start: 09-08-2021 End: 07-20-2022 apply 1 dose transdermal route every twenty-four hours lidocaine (LIDODERM) 5 % Indications: Osteoarthritis, unspecified osteoarthritis type, unspecified site , Lumbar back pain Apply 1 Patch as directed every 24 hours. Remove old patch prior to placing new patch. Location: back 30 Patch 2 09/08/2021 07/20/2022 Discontinued (Course of therapy completed) Comment on above: Apply 1 Patch as dir ected every 24 hours. Remove old patch prior to placing new patch. Location: back losartan potassium 100 mg oral tablet (6 sources) Angiotensin 2 Receptor Crescencio Start: 07-20-2018 End: 10-19-2023 take 1 tablet by mouth once daily Losartan 100 MG tablet Discontinued 100 mg PO DAILY July 20, 2018 12:00am October 19, 2023 3:55pm Comment on above: Take 1 tablet by kimmie th once daily. pravastatin sodium 40 mg oral tablet (2 sources) HMG-CoA Reductase Inhibitor Start: 10-19-2016 End: 10-19-2023 take 1 tablet by mouth at bedtime Pravastatin 40 MG tablet Discontinued 40 mg PO AT BEDTIME October 19, 2016 12:00am October 19, 2023 3:55pm traMADol hydrochloride 50 mg oral tablet (2 sources) Opioid Agonist Start: 10-19-2023 End: 11-03-2023 take 1 tablet by mouth every six hours as needed for pain Tramadol 50 mg tablet Discontinued 50 mg PO EVERY 6 HOURS as needed for pain 10 3 0 October 19, 2023 12:00am November 03, 2023 1:54pm Postoperative pain Other acute postprocedural pain Problems Active Problems Problem Classification Problem Date Documented Da te Episodic/Chronic Anxiety disorders (5 sources) Mixed anxiety and depressive disorder; Translations: [Other specified anxiety disorders] Chronic Appendicitis and other appendiceal conditions (3 sources) Acute appendicitis with localized peritonitis; Translations: [Acute appendicitis with localized peritonitis, without perforation or gangrene] Onset: 11-09-2023 10-28-2023 Episodic Biliary tract disease (3 sources) Biliary calculus; Translations: [Calculus of gallbladder without cholecystitis without obstruction] Onset: 11-09-2023 10-28-2023 Episodic Chronic kidney disease (4 sources) Chronic kidney disease stage 3A ; Translations: [Stage 3a chronic kidney disease (HCC)] Chronic Conditions associated with dizziness or vertigo (1 source) Dizziness; Translations: [Dizziness and giddiness] Episodic Disorders of lipid metabolism (20 sources) Mixed hyperlipidemia; Translations: [Mixed hyperlipidemia] Onset: 04-10-2015 04-10-2015 Chronic Diverticulosis and diverticulitis (2 sources) Diverticular disease; Translations: [Diverticulosis of intestine, part unspecified, without perforation or abscess without bleeding] 10-28-2023 Chronic Essential hypertension (20 sources) Hypertensive disorder; Translations: [Essential (primary) hypertension] Onset: 04-10-2015 04-10-2015 Chronic Immunizations and screening for infectious disease (1 source) Patient encounter status; Translations: [Encounter for immunization] Episodic Malaise and fatigue (1 source) Fatigue; Translations: [Other fatigue] 08-10-2023 Episodic Mood disorders (20 sources) Recurrent major depression; Translations: [Major depressive disorder, recurrent, unspecified] Onset: 04-10-2015 04-10-2015 Chronic Nonspecific chest pain (1 source) Chest wall pain; Translations: [Other chest pain] Episodic Nutritional deficiencies (1 source) Vitamin D deficiency; Translations: [Vitamin D deficiency, unspecified] Chronic Osteoarthritis (1 source) Osteoarthritis; Translations: [Unspecified osteoarthritis, unspecified site] Chronic Osteoporosis (20 sources) Osteoporosis; Translations: [Age-related osteoporosis without current pathological fracture] Onset: 02-22-2016 02-22-2016 Chronic Other gastrointestinal disorders (1 source) Stool finding; Translations: [Other fecal abnormalities] 08-10-2023 Episodic Other nutritional; endocrine; and metabolic disorders (1 source) Weight loss; Translations: [Abnormal weight loss] 08-10-2023 Episodic Spondylosis; intervertebral disc disorders; other back problems (5 sources) Low back pain; Translations: [Lumbar back pain] Episodic Substance-related disorders (20 sources) Tobacco user; Translations: [Nicotine dependence, unspecified, uncomplicated] Onset: 11-20-2015 11-20-2015 Chronic Unclassified (1 source) Low back pain, unspecified; Translations: [Low back pain, unspecified] Onset: 08-03-2024 Past or Other Problems Problem Classification Problem Date Documented Date Episodic/Chronic Abdominal pain (1 source) Right lower quadrant pain; Translations: [Right lower quadrant pain] Onset: 11-09-2023 Episodic Other hematologic conditions (20 sources) Secondary polycythemia; Translations: [Secondary polycythemia] Onset: 11-20-2015 11-20-2015 Episodic Other nervous system disorders (1 source) Other acute postprocedural pain; Translations: [Other acute postprocedural pain] Onset: 10-26-2023 Episodic Other screening for suspected conditions (not mental disorders or infectious disease) (20 sources) Mammography abnormal; Translations: [Other abnormal and inconclusive findings on diagnostic imaging of breast] Onset: 05-27-2015 05-27-2015 Episodic Results Test Name Value Interpretation Reference Range Facility [facility] 10-19-2024 [facility]HODANWS[facility] SNOW SOLIS ([id number]) 1950 F Date Time Provider Department 10/19/24 [facility]OD[facility]ARD[facility] During your visit today, we recorded the following information about you: Dee Hdz 10/19/2024 9:46 AM Signed Prescription Refill Information The patient has been identified by name and date of : Yes Caregiver verified no other encounters exist for this prescription request: Yes Caregiver confirmed with patient/requestor that no other refills are due, in the near future, with this provider at this time: Yes The last office visit in the department: 08-10-23 Does the patient have a future office visit with this provider/department: No Requested Prescriptions Pending Prescriptions Disp Refills sertraline (ZOLOFT) 100 mg tablet 180 tablet 1 Sig: Take 2 tablets by mouth once daily. Dee Knowles October 19, 2024 9:45 AM Bernie Manzanares, RN 10/20/2024 9:15 AM Addendum Attempted to contact pt with no answer and phone goes directly to [facility]. Per [employer], pt has no PCP listed at this time and her last visit was July of 2023. In review of chart and looking at 09/11/24 phone encounter, pt stated the following to the nurse: Patient states there is no need for her to come in and that this is just a way for the clinic to make more money. Patient asking for PCP to be removed from her chart. Provider removed as requested. Unable to refill any medications at this time due to the above. Pt will need to re-establish care with someone if she returns the call. Since [facility] for the refill, called them and spoke with Griselda and let her know that pt no longer has a PCP here per her request so we cannot refill her medications at this time. Dinorah Eduardo APRN.ZOILA 10/20/2024 9:06 AM Signed I do not take my own patients so this would be up to Dr. Blancas and since she has not seen him in some time she needs to be scheduled with him Dinorah Eduardo APRN.Navi Barrera MD 10/23/2024 9:32 AM Signed I would not be willing to take them back on as a patient. They will need to establish with someone else. Gemini Cárdenas LPN 10/23/2024 1:12 PM Signed Message left for patient to call office back for udpate. MINDY Mccormick M Robin, RN 10/23/2024 3:02 PM Signed Pt returned call and given Sunil Hernandezlogallison message below. Pt states she will not see Dr. Blancas. Pt states she will find a different provider. Allergies As of Date: 10/19/2024 Noted Allergy Reaction BEES 04/10/2015 12 - Shortness of Breath LACTOSE INTOLERANCE (LACTASE) 04/10/2015 8 - GI Upset LATEX 04/10/2015 2 - Rash Date Reviewed: 08/10/2023 Reviewed by: Gemini Cárdenas LPN - Fully Assessed Reason for Visit: Refill Request [94] No PCP [Other] Future Appointment [256] Visit Diagnosis:Major depression, recurrent, chronic [F33.9] Prescriptions as of 10/23/2024 - atorvastatin (LIPITOR) 40 mg tablet Take 1 tablet by mouth daily at bedtime. For cholesterol. - hydroCHLOROthiazide 25 mg tablet Take 1 tablet by mouth once daily. - sertraline (ZOLOFT) 100 mg tablet Take 2 tablets by mouth once daily. - alendronate (FOSAMAX) 70 mg tablet Take 1 tablet by mouth one time a week. Take with a full glass of water, on an empty stomach; do NOT lie down for 30minutes. - verapamil SR (CALAN SR) 180 mg CR tablet Take 1 tablet by mouth daily at bedtime. - losartan (COZAAR) 100 mg tablet (Discontinued) Take 1 tablet by mouth once daily. - Cholecalciferol, Vitamin D3, 25 mcg (1,000 unit) cap Take 2 capsules by mouth once daily. - Miscellaneous Medical Supply (BLOOD PRESSURE CUFF) 1 Each once daily. Take BP daily in morning - Cane 1 Device as needed. - aspirin, enteric coated (ASPIRIN, ENTERIC COATED) 81 mg EC tablet Take 1 tablet by mouth once daily. Problem List As Of Date 10/19/2024 Noted Resolved HTN (hypertension) [I10] 04/10/2015 Mixed hyperlipidemia [E78.2] 04/10/2015 Major depression, recurrent, chronic (HCC) [F33*04/10/2015 Abnormal mammogram [R92.8] 05/27/2015 Secondary polycythemia [D75.1] 11/20/2015 Tobacco use disorder [F17.200] 11/20/2015 Osteoporosis [M81.0] 02/22/2016 Encounter Status:Closed by GEMINI CÁRDENAS on 10/23/24 [facility] 09-11-2024 [facility] Tele[facility] (PEDSWS) SNOW SOLIS ([id number]) 1950 F Date Time Provider Department 09/11/24 [facility] During your visit today, we recorded the following information about you: Olga Conner 09/11/2024 11:32 AM Signed Called patient to see about scheduling an appointment for an over due physical. Patient stated that they have been in and out of the hospital recently and would like Dinorah to look everything over before making an appointment to come in. Please call patient after Dinorah has looked at everything and advice patient what they should do. Patient has been at [facility] ER. Thank you Gemini Cheng LPN 09/20/2024 4:57 PM Signed Patient has only been seen once at [facility] hospital on 07/31/2024 for back pain. Regardless she is overdue for her annual Medicare Wellness or follow up. Call placed to patient to schedule. Message left to call office back to schedule. ED summary placed in Dinorah Okeefe inbox for review. MINDY Mccormick Julie, APRN.CNP 09/20/2024 5:05 PM Signed She need follow-up in office as she has not been here in over a year. KARL Phan Michelle, LPN 09/25/2024 3:58 PM Signed Telephone call placed to patient. Made aware of need for appointment. Patient doesn't understand why she needs to come in when the ER did such a throughout workup. Explained to patient what all is gone over in an ER follow up. Patient asking why the provider can't just order the referral needed. Again educated that the provider can't place any referrals without an ER follow up to go over ER visit. Patient states there is no need for her to come in and that this is just a way for the clinic to make more money. Patient asking for PCP to be removed from her chart. Provider removed as requested. MINDY Mccormick Julie, APRN.CNP 09/25/2024 4:28 PM Signed Reviewed. Dinorah Eduardo APRN.CNP Allergies As of Date: 09/11/2024 Noted Allergy Reaction BEES 04/10/2015 12 - Shortness of Breath LACTOSE INTOLERANCE (LACTASE) 04/10/2015 8 - GI Upset LATEX 04/10/2015 2 - Rash Date Reviewed: 08/10/2023 Reviewed by: Gemini Cárdenas LPN - Fully Assessed Reason for Visit: Other [3945] Prescriptions as of 09/25/2024 - atorvastatin (LIPITOR) 40 mg tablet Take 1 tablet by mouth daily at bedtime. For cholesterol. - hydroCHLOROthiazide 25 mg tablet Take 1 tablet by mouth once daily. - sertraline (ZOLOFT) 100 mg tablet Take 2 tablets by mouth once daily. - alendronate (FOSAMAX) 70 mg tablet Take 1 tablet by mouth one time a week. Take with a full glass of water, on an empty stomach; do NOT lie down for 30minutes. - verapamil SR (CALAN SR) 180 mg CR tablet Take 1 tablet by mouth daily at bedtime. - losartan (COZAAR) 100 mg tablet (Discontinued) Take 1 tablet by mouth once daily. - Cholecalciferol, Vitamin D3, 25 mcg (1,000 unit) cap Take 2 capsules by mouth once daily. - Miscellaneous Medical Supply (BLOOD PRESSURE CUFF) 1 Each once daily. Take BP daily in morning - Cane 1 Device as needed. - aspirin, enteric coated (ASPIRIN, ENTERIC COATED) 81 mg EC tablet Take 1 tablet by mouth once daily. Problem List As Of Date 09/11/2024 Noted Resolved HTN (hypertension) [I10] 04/10/2015 Mixed hyperlipidemia [E78.2] 04/10/2015 Major depression, recurrent, chronic (HCC) [F33*04/10/2015 Abnormal mammogram [R92.8] 05/27/2015 Secondary polycythemia [D75.1] 11/20/2015 Tobacco use disorder [F17.200] 11/20/2015 Osteoporosis [M81.0] 02/22/2016 Encounter Status:Closed by GLADIS SERRANO on 09/25/24 [facility] Abdomen/Pelvis W IV Cont ONL Yon 07-31-2024 Abdomen/Pelvis W IV Cont ONLY [facility] [address], [place] [address] Abdomen/Pelvis W IV Cont ONLY MR#: [id number] Acct: [id number] Name: SNOW SOLIS Rep #: [id number] : 1950 F 74 From: Mateusz Murillo MD PCP: Care Physician,No Primary Status: REG ER Study: Abdomen/Pelvis W IV Cont ONLY Date of Exam: Exam# [id number] Ordering Dr: Dixie Jimenez PA ADDENDUM by Dr. Mateusz Murillo MD on 07/31/24 at 1702 Additional small RIGHT lobe hepatic cyst also present, in addition to a punctate hypodensity in the inferior RIGHT lobe too small to characterize, presumed cyst or hemangioma in the absence of known malignancy. END OF ADDENDUM Reading Location: [id number] 07/31/24 1703 Date cc: ARIAN Mckinney; No Primary Care Physician * Signed PROCEDURE: ABDOMEN/PELVIS W IV CONT ONLY 07/31/2024 REASON FOR EXAM: ABDOMINAL PAIN, LOW BACK PAIN TECHNIQUE: CT abdomen and pelvis was performed with IV contrast. Multiplanar reformats were generated. PATIENT PREPARATION: Per protocol ORAL CONTRAST TYPE: None. CONTRAST: Isovue-300 VOLUME: 100 mL One or more dose reduction techniques were used (e.g., Automated exposure control, adjustment of the mA and/or kV according to patient size, use of iterative reconstruction technique. RADIATION DOSE SUMMARY: CTDlvol: 9.46+ 12.15+ 5.23 mGy DLP: 526.91 mGycm Note this represents a total of the CT lumbar spine and CT abdomen and pelvis. COMPARISON: None. FINDINGS: Lung bases: Mild atelectasis/scarring. 3 mm subpleural LEFT lower lobe nodule. Liver: Subcentimeter LEFT lobe hypodensity too small to characterize likely a cyst or hemangioma in the absence of known malignancy. Spleen: Mild splenomegaly, 14.7 cm coronal.. Gallbladder: Cholelithiasis. Pancreas: Segmental dilatation of the main pancreatic duct along the pancreatic head to 6 mm. Adrenals: Unremarkable. Kidneys: Unremarkable. Bowel: Diverticulosis. Appendectomy. Lymph nodes: Unremarkable. Vasculature: Atherosclerosis. Mild abdominal aortic ectasia 22.2 cm orthogonal to the long axis. Peritoneum: Unremarkable. Bladder: Underdistended and suboptimally evaluated, grossly unremarkable. Reproductive Organs: Unremarkable. Body Wall: Tiny fat containing umbilical hernia.. Bones: Suspect demineralization. Thoracolumbar scoliosis, otherwise the lumbar spine lumbar spine is better evaluated on separately dictated dedicated CT lumbar spine. CT/Abdomen/Pelvis W IV Cont ONLY IMPRESSION: 1. No acute findings. 2. Mild dilatation of the proximal main pancreatic duct without visible obstructing process. Consider outpatient MRI abdomen with and without contrast and with MRCP. Comparison with any outside imaging may also be helpful to establish stability. 3. 3 mm LEFT lower lobe nodule, statistically benign and requiring no specific follow-up in a low risk patient. Otherwise, recommend follow-up CT chest in one year per the Fleischner society recommendations for pulmonary nodule follow-up, presuming no history of malignancy or known immunosuppression. 4. Mild splenomegaly. 5. Additional description as above. Reading Location: [facility] CC: ARIAN Mckinney; No Primary Care Physician E Commerce Director: Signed Normal [facility] Absolute lymphocyte countOrd ered By: Dixie Jimenez on 07-31-2024 Lymphocytes Auto (Unsp spec) [#/Vol] 0.77 10*3/uL Low 0.83-4.51 [facility] Absolute neutrophil countOrd ered By: Dixie Jimenez on 07-31-2024 Neutrophils (Bld) [#/Vol] 3.7 10*3/uL 2.0-7.7 [facility] Anion gap in Serum or Plasma Ordered By: Dixie Jimenez on 07-31-2024 Anion gap [Moles/Vol] 14 mmol/L 5-15 [facility] Automated lymphocyte count a s percentage of total leukocytesOrdered By: Dixie Jimenez on 07-31-2024 Lymphocytes/100 WBC Auto (Unsp spec) 15.1 % Low 19-41 [facility] BUN/creatinine ratioOrdered By: Dixie Jimenez on 07-31-2024 Urea nitrogen/Creatinine [Mass ratio] 13.5 mg/mg 10- [facility] Basic Metabolic Profile (BMP )on 07-31-2024 BUN/CRE 13.5 RATIO Normal - [facility] Comment on above: Performed By: #### L 100.0100, L500.2500 #### [facility] [address] [place], [address] Calcium [Mass/Vol] 9.6 mg/dL Normal 7.6-11.0 [facility] Comment on above: Performed By: #### L 100.0100, L500.2500 #### [facility] [address] [place], [address] Chloride [Moles/Vol] 102 mmol/L Normal 98-108 [facility] Comment on above: Performed By: #### L 100.0100, L500.2500 #### [facility] [address] [place], [address] CO2 [Moles/Vol] 24.1 mmol/L Normal 21.0-32.0 [facility] Comment on above: Performed By: #### L 100.0100, L500.2500 #### [facility] [address] [place], [address] Creatinine [Mass/Vol] 1.05 mg/dL Normal 0.70-1.20 [facility] Comment on above: Performed By: #### L 100.0100, L500.2500 #### [facility] [address] [place], [address] ECRCL 41.54 ml/min Low 50-250 [facility] Comment on above: Performed By: #### L 100.0100, L500.2500 #### [facility] [address] [place], [address] GAP 14 Normal 5-15 [facility] Comment on above: Performed By: #### L 100.0100, L500.2500 #### [facility] [address] [place], [address] GFR/1.73 sq M.predicted among non-blacks MDRD (S/P/Bld) [Vol rate/Area] 55 mL/min/{1.73_m2} Low >60 [facility] Comment on above: Result Comment: mL/m in/1.73m2 CKD-EPI Creatinine Equation (2020) Performed By: #### L 100.0100, L500.2500 #### [facility] [address] [place], [address] Glucose [Mass/Vol] 115 mg/dL High 70-99 [facility] Comment on above: Performed By: #### L 100.0100, L500.2500 #### [facility] [address] [place], [address] Potassium [Moles/Vol] 4.1 mmol/L Normal 3.3-5.1 [facility] Comment on above: Result Comment: Hemo lysis present, Results??could be affected. ?? Performed By: #### L 100.0100, L500.2500 #### [facility] [address] [place], [address] Sodium [Moles/Vol] 140 mmol/L Normal 133-145 [facility] Comment on above: Performed By: #### L 100.0100, L500.2500 #### [facility] [address] [place], [address] Urea nitrogen [Mass/Vol] 14 mg/dL Normal 4-19 [facility] Comment on above: Performed By: #### L 100.0100, L500.2500 #### [facility] [address] [place], [address] Basophil percentageOrdered B y: Dixie Jimenez on 07-31-2024 Basophils/100 WBC (Bld) 0.6 % 0-1 [facility] Bilirubin Test strip Ql (U)O rdered By: Dixie Jimenez on 07-31-2024 Bilirubin Ql (U) Negative Negative [facility] CBC W/Diff, Automatedon 04-0 Absolute Lymph 0.77 X10 3/uL Low 0.83-4.51 [facility] Comment on above: Performed By: #### L 100.0100, L500.2500 #### [facility] [address] [place], [address] Absolute Neut 3.7 X10 3/uL Normal 2.0-7.7 [facility] Comment on above: Performed By: #### L 100.0100, L500.2500 #### [facility] [address] [place], [address] Basophils/100 WBC (Bld) 0.6 % Normal 0-1 [facility] Comment on above: Performed By: #### L 100.0100, L500.2500 #### [facility] [address] [place], [address] Eosinophils/100 WBC (Bld) 1.2 % Normal 0-5 [facility] Comment on above: Performed By: #### L 100.0100, L500.2500 #### [facility] [address] [place], [address] Erythrocyte distribution width (RBC) [Ratio] 14.2 % Normal 11.6-14.6 [facility] Comment on above: Performed By: #### L 100.0100, L500.2500 #### [facility] [address] [place], [address] Hematocrit (Bld) [Volume fraction] 48.6 % High 37-47 [facility] Comment on above: Performed By: #### L 100.0100, L500.2500 #### [facility] [address] [place], [address] Hemoglobin (Bld) [Mass/Vol] 16.4 g/dL High 12.0-15.0 [facility] Comment on above: Performed By: #### L 100.0100, L500.2500 #### [facility] [address] [place], [address] IG% 0.200 Normal 0.0-0.9 [facility] Comment on above: Result Comment: IG% - Immature Granulocytes (promyelocytes, myelocytes and metamyelocytes) > 1% indicates that a LEFT SHIFT is Present. Performed By: #### L 100.0100, L500.2500 #### [facility] [address] [place], [address] Lymphocytes/100 WBC (Bld) 15.1 % Low 19-41 [facility] Comment on above: Performed By: #### L 100.0100, L500.2500 #### [facility] [address] [place], [address] MCH (RBC) [Entitic mass] 29.3 pg Normal 27.0-32.0 [facility] Comment on above: Performed By: #### L 100.0100, L500.2500 #### [facility] [address] [place], [address] MCHC (RBC) [Mass/Vol] 33.7 g/dL Normal 32-36 [facility] Comment on above: Performed By: #### L 100.0100, L500.2500 #### [facility] [address] [place], [address] MCV (RBC) [Entitic vol] 86.8 fL Normal 81-99 [facility] Comment on above: Performed By: #### L 100.0100, L500.2500 #### [facility] [address] [place], [address] Monocytes/100 WBC (Bld) 10.8 % High 0-10 [facility] Comment on above: Performed By: #### L 100.0100, L500.2500 #### [facility] [address] [place], [address] Neutrophils/100 WBC (Bld) 72.1 % High 47-70 [facility] Comment on above: Performed By: #### L 100.0100, L500.2500 #### [facility] [address] [place], [address] Nucleated RBC (Bld) [#/Vol] 0 10*3/uL Normal 0-5 [facility] Comment on above: Performed By: #### L 100.0100, L500.2500 #### [facility] [address] [place], [address] Platelet mean volume (Bld) [Entitic vol] 11.1 fL Normal 6.2-12.0 [facility] Comment on above: Performed By: #### L 100.0100, L500.2500 #### [facility] [address] [place], [address] Platelets (Bld) [#/Vol] 174 10*3/uL Normal 150-450 [facility] Comment on above: Performed By: #### L 100.0100, L500.2500 #### [facility] [address] [place], [address] RBC (Bld) [#/Vol] 5.60 10*6/uL High 4.2-5.4 [facility] Comment on above: Performed By: #### L 100.0100, L500.2500 #### [facility] [address] [place], [address] RDW SD 45.3 fl High 35.1-43.9 [facility] Comment on above: Performed By: #### L 100.0100, L500.2500 #### [facility] [address] [place], [address] WBC (Bld) [#/Vol] 5.1 10*3/uL Normal 4.4-11.0 [facility] Comment on above: Performed By: #### L 100.0100, L500.2500 #### [facility] [address] [place], [address] Carbon dioxide, total [Moles /volume] in Central venous bloodOrdered By: Dixie Jimenez on 07-31-2024 CO2 [Moles/Vol] 24.1 mmol/L 21.0-32.0 [facility] Chloride assayOrdered By: Nancy Jimenez on 07-31-2024 Chloride [Moles/Vol] 102 mmol/L 98-108 [facility] Emergency Department Summary on 07-31-2024 Emergency Department Summary [facility] Medical Records Department [address] [place] [address] Emergency Department Summary 07/31/24 MR#: [id number] Acct: [id number] Name: SNOW SOLIS Rep #: [id number] : 1950 74 From: Wallace Shaw DO PCP: Care Physician,No Primary Status:DEP ER Location: ED HPI History of Present Illness Chief Complaint: Back Narrative Narrative: 74-year-old female with PMH of HTN, HLD presents with 1 week of abdominal bloating and bilateral lumbar pain. She states her back hurts significantly with standing and is limiting her activity. She said no fall or trauma. She also has abdominal bloating and reports chronic alternating diarrhea and constipation since she had her appendix removed a couple months ago. She states the diarrhea causes her frequent UTIs. She denies dysuria. She has no fever or chills. She has no lower extremity weakness, paresthesias, saddle anesthesia or bladder bowel incontinence. She has tried Tylenol arthritis. [facility] Medical History (Updated 07/31/24 @ 17:37 by ARIAN Mckinney) Diverticulosis Cholelithiasis HTN (hypertension) Hyperlipemia Suicide attempt Depression Back pain Home Medications ???Medication ???Instructions ???Recorded ???Last Taken ???Type alendronate 70 mg tablet 70 mg PO QWEEK 10/19/23 Unknown Hi story atorvastatin 40 mg tablet 40 mg PO QHS cholesterol 10/19/23 Unknown History cholecalciferol (vitamin D3) 25 25 mcg PO DAILY 10/19/23 Unknown H istory mcg (1,000 unit) capsule (Vitamin D3) hydrochlorothiazide 25 mg tablet 25 mg PO DAILY 10/19/23 Unknown Hi story sertraline 100 mg tablet 200 mg PO DAILY 10/19/23 Unknown H istory Allergy/AdvReac Type Severity Reaction Status Date / Time Sulfa (Sulfonamide Allergy Mucosal Verified 07/31/24 14:04 Antibiotics) lesions nickel AdvReac Mild Itching Verified 07/31/24 14:04 Family History no significant family his Surgical History History of appendectomy H/O unilateral oophorectomy Social History household members: none housing: house Smoking Status: Current every day smoker tobacco type: cigarettes ROS ROS ED ROS Narrative Constitutional: Negative for fever, chills, malaise. CVS: Negative for chest pain. Respiratory: Negative for shortness of breath. GI: Positive for abdominal discomfort. No nausea or vomiting. : Negative for dysuria, hematuria or frequency. EXAM Physical Exam Narrative Exam Narrative: CONST: Patient sitting in no acute distress. EYES: Normal inspection. NECK: Normal inspection. RESP: No respiratory distress, CTAB. CVS: Regular rate and rhythm, no murmur, no gallop. ABD: Soft with bilateral lower quadrant tenderness, no guarding or rebound, nondistended. Back: Normal inspection, no CVA tenderness. No midline tenderness or step-offs. SKIN: Color normal, no rash, warm, dry, intact. EXTREMITIES: Normal appearance, no pedal edema. NEURO: Alert and answering questions appropriately. PSYCH: Normal affect. Const Vital Signs: 07/31/24 14:01 Temperature 97 F L Temperature Source Oral Pulse Rate 95 Respiratory Rate 16 Blood Pressure 154/95 H Blood Pressure Mean 114 Pulse Ox 94 Oxygen Delivery Method Room Air Physical Exam Const Vital Signs: 07/31/24 14:01 Temperature 97 F L Temperature Source Oral Pulse Rate 95 Respiratory Rate 16 Blood Pressure 154/95 H Blood Pressure Mean 114 Pulse Ox 94 Oxygen Delivery Method Room Air MDM MDM MDM Narrative Medical decision making narrative: Differential includes but not limited to musculoskeletal low back pain, UTI, intra-abdominal process Patient presents with complaint of abdominal bloating and bilateral lumbar pain over the last week. No trauma. She appears well and nontoxic. Vital signs stable. She has a normal cardiopulmonary exam. She has mild bilateral lower abdominal tenderness without peritoneal signs. There is no reproducible tenderness of her back. Lower extremity MSPs and reflexes are intact. She has no red flag signs concerning for cauda equina syndrome or epidural abscess. I ordered blood work and CT scans of the abdomen/pelvis and lumbar spine. Overall labs are unremarkable. Urinalysis negative. CT shows no acute findings. There is incidental pancreatic duct dilation which I informed her of and will need outpatient follow-up. There is lumbar degeneration without acute fracture. She felt better after IV morphine, Toradol, and Zofran. I recommended [id number] pain relievers and follow-up with her primary care doctor. She was discharged in stable condition. Lab Data Attestation: I reviewed the patient's lab results. Labs: (more content not included)... Normal [facility] Eosinophil percentageOrdered By: Dixie Jimenez on 07-31-2024 Eosinophils/100 WBC (Bld) 1.2 % 0-5 [facility] Epithelial cells.squamous LM Ql (Urine sed)Ordered By: Dixie Jimenez on 07-31-2024 Epithelial cells.squamous LM.HPF (Urine sed) [#/Area] 0 /[HPF] 5-10 [facility] Erythrocyte distribution wid th (RBC) [Ratio]Ordered By: Dixie Jimenez on 07-31-2024 Erythrocyte distribution width (RBC) [Entitic vol] 45.3 fL High 35.1-43.9 [facility] Erythrocyte distribution wid th ratioOrdered By: Dixie Jimenez on 07-31-2024 Erythrocyte distribution width (RBC) [Ratio] 14.2 % 11.6-14.6 [facility] Erythrocyte distribution wid th standard deviationOrdered By: Dixie Jimenez on 07-31-2024 Erythrocyte distribution width (RBC) [Ratio] 45.3 fl High 35.1-43.9 [facility] Estimation of creatinine adrian aranceOrdered By: Dixie Jimenez on 07-31-2024 Estimated Creatinine Clearance Calc 41.54 ml/min Low 50-250 [facility] GFR/1.73 sq M.predicted daquan g non-blacks MDRD (S/P/Bld) [Vol rate/Area]Ordered By: Dixie Jimenez on 07-31-2024 Estimated GFR (MDRD) Non-Af Amer 55 Low >60 [facility] Comment on above: mL/min/1.73m2 CKD-EP I Creatinine Equation (2020) Glomerular filtration rate ( GFR) estimation/1.73 sq m using serum, plasma, or whole bOrdered By: Dixie Jimenez on 07-31-2024 GFR/1.73 sq M.predicted among non-blacks MDRD (S/P/Bld) [Vol rate/Area] 55 mL/min/{1.73_m2} Low >60 [facility] Comment on above: mL/min/1.73m2 CKD-EP I Creatinine Equation (2020) Glucose Ql (U)Ordered By: Nancy Jimenez on 07-31-2024 Urine Glucose (UA) Normal mg/dl Normal [facility] Hematocrit Auto (Bld) [Volum e fraction]Ordered By: Dixie Jimenez on 07-31-2024 Hematocrit (Bld) [Volume fraction] 48.6 % High 37-47 [facility] Hemoglobin measurementOrdere d By: Dixie Jimenez on 07-31-2024 Hemoglobin (Bld) [Mass/Vol] 16.4 g/dL High 12.0-15.0 [facility] Immature granulocytes/100 WB C Auto (Bld)Ordered By: Dixie Jimenez on 07-31-2024 Immature granulocytes/100 WBC (Bld) 0.200 % 0.0-0.9 [facility] Comment on above: IG% - Immature Granu locytes (promyelocytes, myelocytes and metamyelocytes) > 1% indicates that a LEFT SHIFT is Present. Ketones Test strip Ql (U)Ord ered By: Dixie Jimenez on 07-31-2024 Ketones Ql (U) Negative Negative [facility] Lymphocytes Auto (Unsp spec) [#/Vol]Ordered By: Dixie Jimenez on 07-31-2024 Lymphocytes (Bld) [#/Vol] 0.77 10*3/uL Low 0.83-4.51 [facility] Lymphocytes/100 WBC Auto (Un sp spec)Ordered By: Dixie Jimenez on 07-31-2024 Lymphocytes/100 WBC (Bld) 15.1 % Low 19-41 [facility] MCV (mean corpuscular volume ) determinationOrdered By: Dixie Jimenez on 07-31-2024 MCV (RBC) [Entitic vol] 86.8 fL 81-99 [facility] Mean corpuscular hemoglobin (MCH) determinationOrdered By: Dixie Jimenez on 07-31-2024 MCH (RBC) [Entitic mass] 29.3 pg 27.0-32.0 [facility] Mean corpuscular hemoglobin concentration (MCHC) determinationOrdered By: Dixie Jimenez on 07-31-2024 MCHC (RBC) [Mass/Vol] 33.7 g/dL 32-36 [facility] Mean platelet volume determi nationOrdered By: Dixie Jimenez on 07-31-2024 Platelet mean volume (Bld) [Entitic vol] 11.1 fL 6.2-12.0 [facility] Microscopic analysis of urin e for red blood cells (RBC)Ordered By: Dixie Jimenez on 07-31-2024 Microscopic analysis of urine for red blood cells (RBC) 0 SEEN /hpf 0-5 [facility] Urine RBC 0 SEEN /hpf 0-5 [facility] Monocyte percentageOrdered B y: Dixie Jimenez on 07-31-2024 Monocytes/100 WBC (Bld) 10.8 % High 0-10 [facility] Mucus LM Ql (Urine sed)Order ed By: Dixie Jimenez on 07-31-2024 Mucus Ql (Urine sed) 0 SEEN /hpf [facility] Neutrophil percentageOrdered By: Dixie Jimenez on 07-31-2024 Neutrophils/100 WBC (Bld) 72.1 % High 47-70 [facility] Nitrite Test strip Ql (U)Ord ered By: Dixie Jimenez on 07-31-2024 Nitrite Ql (U) Negative Negative [facility] Nucleated red blood cell per centageOrdered By: Dixie Jimenez on 07-31-2024 Nucleated RBC/100 WBC (Bld) [Ratio] 0 % 0-5 [facility] Platelet countOrdered By: Nancy Jimenez on 07-31-2024 Platelets (Bld) [#/Vol] 174 10*3/uL 150-450 [facility] Potassium (Unsp spec) [Mass/ Vol]Ordered By: Dixie Jimenez on 07-31-2024 Potassium [Moles/Vol] 4.1 mmol/L 3.3-5.1 [facility] Comment on above: Hemolysis present, R esults could be affected. Potassium measurement (mass/ volume)Ordered By: Dixie Jimenez on 07-31-2024 Potassium (Unsp spec) [Mass/Vol] 4.1 mmol/L 3.3-5.1 [facility] Comment on above: Hemolysis present, R esults could be affected. Protein Test strip Ql (U)Ord ered By: Dixiefaustino Jimenez on 07-31-2024 Protein Ql (U) 15 mg/dl High Negative [facility] RBC Auto (Bld) [#/Vol]Ordere d By: Dixie Johnselena on 07-31-2024 RBC (Bld) [#/Vol] 5.60 10*6/uL High 4.2-5.4 [facility] Serum creatinine measurement (mass/volume)Ordered By: Dixie Jimenez on 07-31-2024 Creatinine [Mass/Vol] 1.05 mg/dL 0.70-1.20 [facility] Serum glucose measurement (m ass/volume)Ordered By: Dixie Jimenez on 07-31-2024 Glucose [Mass/Vol] 115 mg/dL High 70-99 [facility] Serum or plasma calcium al urement (mass/volume)Ordered By: Dixie Jimenez on 07-31-2024 Calcium [Mass/Vol] 9.6 mg/dL 7.6-11.0 [facility] Serum or plasma urea nitroge n measurement (mass/volume)Ordered By: Dixie Jimenez on 07-31-2024 Urea nitrogen [Mass/Vol] 14 mg/dL 4-19 [facility] Sodium levelOrdered By: Dixie Jimenez on 07-31-2024 Sodium [Moles/Vol] 140 mmol/L 133-145 [facility] Spine Lumbar without Contras ton 07-31-2024 Spine Lumbar without Contrast [facility] Imaging Services [address] [place], [place] [id number] Spine Lumbar without Contrast MR#: [id number] Acct: [id number] Name: SNOW SOLIS Rep #: [id number] : 1950 F 74 From: Mateusz Murillo MD PCP: Care Physician,No Primary Status: REG ER Study: Spine Lumbar without Contrast Date of Exam: Exam# [id number] Ordering Dr: Wallace Shaw DO PROCEDURE: SPINE LUMBAR WITHOUT CONTRAST 07/31/2024 REASON FOR EXAM: BACK PAIN R/O FRACTURE TECHNIQUE: CT lumbar spine was performed without IV contrast. Multiplanar reformats were generated. One or more dose reduction techniques were used (e.g., Automated exposure control, adjustment of the mA and/or kV according to patient size, use of iterative reconstruction technique COMPARISON: None. RADIATION DOSE SUMMARY: CTDlvol: 9.46+ 12.15+ 5.23 mGy DLP: 526.91 mGycm Note that this represents the sum of the CT lumbar spine and CT abdomen and pelvis. FINDINGS: No lumbar spinal fracture or acute malalignment identified. Vertebral body heights are preserved. Thoracolumbar dextroscoliosis. Suspect demineralization. Variable spinal canal stenosis up to at least mild at L2-L3. Variable foraminal stenoses up to at least mild/moderate on the RIGHT at L4-L5 related to prominent disc bulging/protrusion, probably contacting the exiting nerve root. These findings are suboptimally delineated by CT. Paraspinal soft tissues better evaluated on concurrent separately dictated CT abdomen and pelvis. Please refer to that report. CT/Spine Lumbar without Contrast IMPRESSION: 1. Demineralization without lumbar spinal fracture or acute malalignment identified. 2. Additional description as above. Reading Location: [id number] CC: Dr. Wallace Shaw, ; No Primary Care Physician E Commerce Director: Signed Normal [facility] Squamous epithelial cells de tection in urine sediment by light microscopyOrdered By: Dixie Jimenez on 07-31-2024 Epithelial cells.squamous LM Ql (Urine sed) 0 SEEN /hpf 5-10 [facility] Urinalysis, Completeon 07-31 WBC 0-5 SEEN Normal 0-5 [facility] Comment on above: Order Comment: CLEAN CATCH Performed By: #### L 400.0001 #### [facility] [address] [place], [place], [id number] BACTERIA 0 SEEN Normal None Seen [facility] Comment on above: Order Comment: CLEAN CATCH Performed By: #### L 400.0001 #### [facility] [address] [place], [place], [id number] EPI,SQUAMOUS 0 SEEN Normal 5-10 [facility] Comment on above: Order Comment: CLEAN CATCH Performed By: #### L 400.0001 #### [facility] [address] [place], [address] Mucus Ql (Urine sed) 0 SEEN Normal [facility] Comment on above: Order Comment: CLEAN CATCH Performed By: #### L 400.0001 #### [facility] [address] [facility] [address] RBC 0 SEEN Normal 0-5 [facility] Comment on above: Order Comment: CLEAN CATCH Performed By: #### L 400.0001 #### [facility] [address] [place], [place], [id number] Urine blood detectionOrdered By: Dixie Jimenez on 07-31-2024 Urine Occult Blood 10 /ul High Negative [facility] Urine clarityOrdered By: Alexandra Jimenez on 07-31-2024 Clarity (U) Clear Clear [facility] Urine color determinationOrd ered By: Dixie Jimenez on 07-31-2024 Color (U) Yellow Yellow [facility] Urine glucose detectionOrder ed By: Dixie Jimenez on 07-31-2024 Glucose Ql (U) Normal mg/dl Normal [facility] Urine leukocyte esterase det ection by dipstickOrdered By: Dixie Jimenez on 07-31-2024 Leukocyte esterase Test strip Ql (U) Negative Negative [facility] Urine pHOrdered By: Dixie parker on 07-31-2024 pH (U) 6.0 [pH] 5.0 - 8.0 [facility] Urine sediment bacteria coun t by microscopy (number/high power field)Ordered By: Dixie Jimenez on 07-31-2024 Bacteria LM.HPF (Urine sed) [#/Area] 0 /[HPF] None Seen [facility] Urine specific gravity measu rementOrdered By: Dixie Jimenez on 07-31-2024 Specific gravity (U) [Rel density] 1.015 1.002-1.030 [facility] Urine urobilinogen measureme ntOrdered By: Dixie Jimenez on 07-31-2024 Urobilinogen Ql (U) Normal mg/dl Normal [facility] Urobilinogen Ql (U)Ordered B y: Dixie Jimenez on 07-31-2024 Urine Urobilinogen Normal mg/dl Normal [facility] White blood cell (WBC) count Ordered By: Dixie Jimenez on 07-31-2024 WBC (Bld) [#/Vol] 5.1 10*3/uL 4.4-11.0 [facility] White blood cell countOrdere d By: Dixie Jimenez on 07-31-2024 Urine WBC 0-5 SEEN /hpf 0-5 [facility] White blood cell count 0-5 SEEN /hpf 0-5 [facility] Surgery Visit Reporton 11-02 Surgery Visit Report [facility] [address] [place] [address] OFFICE VISIT Date of Service: 11/03/23 MR#: [id number] Acct: [id number] Name: SNOW SOLIS Rep #: [id number] : 1950 Provider: Dr. 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 Is patient in pain?: No Allergies Sulfa (Sulfonamide Antibiotics) Allergy (Verified 11/03/23 13:54) Mucosal lesions nickel Adverse Reaction (Mild, Verified 11/03/23 13:54) Itching Medications ???Medication ???Instructions ???Recorded ???Confirmed ???Type alendronate 70 mg tablet 70 mg PO QWEEK 10/19/23 11/03/23 History atorvastatin 40 mg tablet 40 mg PO QHS cholesterol 10/19/23 11/03/23 History cholecalciferol (vitamin D3) 25 25 mcg PO DAILY 10/19/23 11/03/23 History mcg (1,000 unit) capsule (Vitamin D3) hydrochlorothiazide 25 mg tablet 25 mg PO DAILY 10/19/23 11/03/23 History sertraline 100 mg tablet 200 mg PO DAILY 10/19/23 11/03/23 History Have you fallen in the past year?: No Subjective Details: 73-year-old female presents status post laparoscopic appendectomy. Patient's pathology showed acute appendicitis. Patient is tolerating diet and having bowel function denies any abdominal pain. Objective Details: Abdomen: Soft, nondistended, nontender, incisions healing well clean dry and intact Coding Level of Care Code Global Post Op Diagnoses History of appendectomy Z90.49 [facility] Medical History (Updated 10/28/23 @ 00:02 by Background Jacqueline) Diverticulosis Cholelithiasis HTN (hypertension) Hyperlipemia Suicide attempt Depression Back pain Surgical History (Updated 11/04/23 @ 11:[address] Daksha Ramos MD) History of appendectomy H/O unilateral oophorectomy Social History household members: none housing: house Smoking Status: Current every day smoker tobacco type: cigarettes Assessment and Plan (No Qualifiers) Assessment and Plan (1) History of appendectomy: Status: Acute Plan Patient is doing well tolerate diet and having bowel function. Patient's incisions healing well clean dry and intact. Follow-up as needed. Patient is agreeable to plan. Did ask patient about colonoscopy she was not interested at this time. Daksha Ramos M.D. Pager: [phone] [facility] [address] [place] [address] [address] [place] [address] Office: [phone] 11/04/23 1132 Date Daksha Hagenignnancy Signature: Date (if applicable) CC: Normal [facility] Surgery Specimen Level IIIon 10-20-2023 Surgery Specimen Level III Patient Age/Sex Location Account Attending Physician SNOW SOLIS 73/F MS3 [id number] Dr. Daksha Ramos MD Specimen: [id number] Received: 10/20/23-1110 Status: SERGIO Goran Num: [id number] Spec Type: APPENDIX Subm Dr: Dr. Daksha Ramos MD HEADER OPERATION: Laparoscopic, appendectomy PRE-OP DIAGNOSIS: Acute appendicitis with localized peritonitis, cholelithiasis TISSUE SUBMITTED: Appendix MICROSCOPIC DIAGNOSIS Appendix, appendectomy: Acute appendicitis and periappendicitis. BARBIE/ 10/21/2023 MICROSCOPIC DESCRIPTION Slides are reviewed. GROSS DESCRIPTION Received in fixative is one container labeled with the patient's name and designated appendix. The specimen consists of an appendix measuring 7.0 cm in length and up to 1.2 cm in diameter. The attached periappendiceal adipose tissue measures up to 2.5 cm in width. The serosa is congested and covered with sanchez purulent exudate. No obvious perforation is identified. The lumen contains fecal material and purulent fluid. No fecalith is identified. Illuminating Engineer sections are submitted in one cassette. SJ: 10/20/2023 TC:2 CPT: 89349 Patient Age/Sex Location Account Attending Physician SNOW SOLIS 73/F MS3 [id number] Dr. Daksha Ramos MD Signed (signature on file) Dr. Andrés Hooker MD 10/21/23 1233 Normal [facility] Comment on above: Performed By: #### P SUIII ####[facility] [address] [place], [place], [address] Abdomen/Pelvis W IV Cont ONL Yon 10-19-2023 Abdomen/Pelvis W IV Cont ONLY [facility] [address] [place], [place] [address] Abdomen/Pelvis W IV Cont ONLY MR#: [id number] Acct: [id number] Name: SNOW SOLIS Rep #: [id number] : 1950 F 73 From: Khris Preston MD PCP: Care Physician,No Primary Status: DIS VENKAT Study: Abdomen/Pelvis W IV Cont ONLY Date of Exam: Exam# [id number] Ordering Dr: Eyal Pugh MD ADDENDUM by Dr. Khris Preston MD on 10/19/[address]/Abdomen/Pelvis W IV Cont ONLY IMPRESSION: Acute appendicitis. No obstruction or abscess. Colonic diverticulosis. Multiple gallstones. No biliary dilatation. Splenomegaly. N.B. : The above Results were Read Back by Khris Preston MD to Eyal Pugh MD, and understanding confirmed on 10/19/2023 18:12:38 (ET). Electronically Signed: Khris Preston MD at 18:13 EDT , 10/19/23 1820 Date cc: Dr. Eyal Pugh MD; No Primary Care Physician * Signed [id number] STUDY: CT ABDOMEN AND PELVIS WITH CONTRAST REASON FOR EXAM: Female, 73 years old. Right lower quadrant abdominal pain, guarding, ano RADIATION DOSAGE (If Supplied By Facility): CTDIvol = ( 8.44 ) mGy, DLP = ( 317.65 ) mGycm TECHNIQUE: Transaxial images were obtained from the dome of the diaphragm to the symphysis pubis without oral contrast. IV 75mL Isovue-300 was administered. Sagittal and coronal images were reconstructed. Individualized dose optimization techniques were used for this CT. COMPARISON: None. FINDINGS: The visualized lung bases are unremarkable. The visualized portions of the heart are within normal limits. Normal liver. There are multiple gallstones. There is gallbladder wall thickening. There is moderate splenomegaly. Normal pancreas. Normal bilateral adrenal glands. Normal right kidney. Normal left kidney. Normal visualized stomach. Normal small intestine. There are multiple colonic diverticula consistent with diverticulosis. There is a tubular, thick-walled appendix (>7mm), consistent with acute appendicitis. There is a calcified appendicolith. There is diffuse atherosclerotic calcification of the abdominal aorta, without a demonstrated aneurysm. Normal inferior vena cava. Normal retroperitoneum. Normal urinary bladder. Normal visualized uterus. There is no free fluid in the abdomen or pelvis. Normal abdominal wall. There is lumbar levoscoliosis with degenerative change. CT/Abdomen/Pelvis W IV Cont ONLY IMPRESSION: Acute appendicitis. No obstruction or abscess. Colonic diverticulosis. Multiple gallstones. No biliary dilatation. Splenomegaly. N.B. : The above Results were Read Back by Khris Preston MD to Eyal Pugh MD, and understanding confirmed on 10/19/2023 18:12:38 (ET). Electronically Signed: Khris Preston MD at 18:13 EDT , CC: Dr. Eyal Pugh MD; No Primary Care Physician E Commerce Director: Signed Normal [facility] Abdomen/Pelvis W IV Cont ONLY [facility] [address] [place] [address] Abdomen/Pelvis W IV Cont ONLY MR#: [id number] Acct: [id number] Name: SNOW SOLIS Rep #: [id number] : 1950 F 73 From: Khris Preston MD PCP: Care Physician,No Primary Status: REG ER Study: Abdomen/Pelvis W IV Cont ONLY Date of Exam: Exam# [id number] Ordering Dr: Eyal Pugh MD ADDENDUM by Dr. Khris Preston MD on 10/19/23 at 1813 [id number] STUDY: CT ABDOMEN AND PELVIS WITH CONTRAST REASON FOR EXAM: Female, 73 years old. Right lower quadrant abdominal pain, guarding, ano RADIATION DOSAGE (If Supplied By Facility): CTDIvol = ( 8.44 ) mGy, DLP = ( 317.65 ) mGycm TECHNIQUE: Transaxial images were obtained from the dome of the diaphragm to the symphysis pubis without oral contrast. IV 75mL Isovue-300 was administered. Sagittal and coronal images were reconstructed. Individualized dose optimization techniques were used for this CT. COMPARISON: None. FINDINGS: The visualized lung bases are unremarkable. The visualized portions of the heart are within normal limits. Normal liver. There are multiple gallstones. There is gallbladder wall thickening. There is moderate splenomegaly. Normal pancreas. Normal bilateral adrenal glands. Normal right kidney. Normal left kidney. Normal visualized stomach. Normal small intestine. There are multiple colonic diverticula consistent with diverticulosis. There is a tubular, thick-walled appendix (>7mm), consistent with acute appendicitis. There is a calcified appendicolith. There is diffuse atherosclerotic calcification of the abdominal aorta, without a demonstrated aneurysm. Normal inferior vena cava. Normal retroperitoneum. Normal urinary bladder. Normal visualized uterus. There is no free fluid in the abdomen or pelvis. Normal abdominal wall. There is lumbar levoscoliosis with degenerative change. 10/19/23 1813 Date cc: Dr. Eyal Pugh MD; No Primary Care Physician * Signed ADDENDUM by Dr. Khris Preston MD on 10/19/[address]/Abdomen/Pelvis W IV Cont ONLY IMPRESSION: Acute appendicitis. No obstruction or abscess. Colonic diverticulosis. Multiple gallstones. No biliary dilatation. Splenomegaly. N.B. : The above Results were Read Back by Khris Preston MD to Eyal Pugh MD, and understanding confirmed on 10/19/2023 18:12:38 (ET). Electronically Signed: Khris Preston MD at 18:13 EDT , 10/19/23 1820 Date cc: Dr. Eyal Pugh MD; No Primary Care Physician * Signed [id number] STUDY: CT ABDOMEN AND PELVIS WITH CONTRAST REASON FOR EXAM: Female, 73 years old. Right lower quadrant abdominal pain, guarding, ano RADIATION DOSAGE (If Supplied By Facility): CTDIvol = ( 8.44 ) mGy, DLP = ( 317.65 ) mGycm TECHNIQUE: Transaxial images were obtained from the dome of the diaphragm to the symphysis pubis without oral contrast. IV 75mL Isovue-300 was administered. Sagittal and coronal images were reconstructed. Individualized dose optimization techniques were used for this CT. COMPARISON: None. FINDINGS: The visualized lung bases are unremarkable. The visualized portions of the heart are within normal limits. Normal liver. There are multiple gallstones. There is gallbladder wall thickening. There is moderate splenomegaly. Normal pancreas. Normal bilateral adrenal glands. Normal right kidney. Normal left kidney. Normal visualized stomach. Normal small intestine. There are multiple colonic diverticula consistent with diverticulosis. There is a tubular, thick-walled appendix (>7mm), consistent with acute appendicitis. There is a calcified appendicolith. There is diffuse atherosclerotic calcification of the abdominal aorta, without a demonstrated aneurysm. Normal inferior vena cava. Normal retroperitoneum. Normal urinary bladder. Normal visualized uterus. There is no free fluid in the abdomen or pelvis. Normal abdominal wall. There is lumbar levoscoliosis with degenerative change. CT/Abdomen/Pelvis W IV Cont ONLY IMPRESSION: Acute appendicitis. No obstruction or abscess. Colonic diverticulosis. Multiple gallstones. No biliary dilatation. Splenomegaly. N.B. : The above Results were Read Back by Khris Preston MD to Eyal Pugh MD, and understanding confirmed on 10/19/2023 18:12:38 (ET). Electronically Signed: Khris Preston MD at 18:13 EDT Reading Location ID and State: (more content not included)... Normal [facility] Basic Metabolic Profile (BMP )on 10-19-2023 BUN Normal 7-18 [facility] Comment on above: Result Comment: DUPL ICATE Performed By: #### L 500.2500, L100.0100 ####[facility] [address] [place], [address] BUN/CRE Normal 10-20 [facility] Comment on above: Result Comment: DUPL ICATE Performed By: #### L 500.2500, L100.0100 ####[facility] [address] [place], [address] CA,Total Normal 8.5-10.1 [facility] Comment on above: Result Comment: DUPL ICATE Performed By: #### L 500.2500, L100.0100 ####[facility] [address] [place], [address] CL Normal 98-107 [facility] Comment on above: Result Comment: DUPL ICATE Performed By: #### L 500.2500, L100.0100 ####[facility] [address] [place], [address] CO2 Normal 21.0-32.0 [facility] Comment on above: Result Comment: DUPL ICATE Performed By: #### L 500.2500, L100.0100 ####[facility] [address] [place], [address] CREAT,SERUM Normal 0.55-1.02 [facility] Comment on above: Result Comment: DUPL ICATE Performed By: #### L 500.2500, L100.0100 ####[facility] [address] [place], [address] EST GFR Normal >60 [facility] Comment on above: Result Comment: DUPL ICATE Performed By: #### L 500.2499, L100.0100 ####[facility] [address] [place], [address] EST GFR - AA Normal >60 [facility] Comment on above: Result Comment: DUPL ICATE Performed By: #### L 500.2500, L100.0100 ####[facility] [address] [place], [address] GAP Normal 5-15 [facility] Comment on above: Result Comment: DUPL ICATE Performed By: #### L 500.2500, L100.0100 ####[facility] [address] [place], [address] GLU Normal 74-106 [facility] Comment on above: Result Comment: DUPL ICATE Performed By: #### L 500.2500, L100.0100 ####[facility] [address] [place], [address] Potassium Normal 3.5-5.1 [facility] Comment on above: Result Comment: DUPL ICATE Performed By: #### L 500.2500, L100.0100 ####[facility] [address] [place], [address] Basic Metabolic Profile (BMP) Normal 136-145 [facility] Comment on above: Result Comment: DUPL ICATE Performed By: #### L 500.2500, L100.0100 ####[facility] [address] [place], [address] CBC W/Diff, Automatedon -2 Absolute Neut Normal 2.0-7.7 [facility] Comment on above: Result Comment: DUPL ICATE Performed By: #### L 500.2500, L100.0100 ####[facility] [address] [place], [address] HCT Normal 37-47 [facility] Comment on above: Result Comment: DUPL ICATE Performed By: #### L 500.2500, L100.0100 ####[facility] [address] [place], [address] HGB Normal 12.0-15.0 [facility] Comment on above: Result Comment: DUPL ICATE Performed By: #### L 500.2500, L100.0100 ####[facility] [address] [place], [address] MCH Normal 27.0-32.0 [facility] Comment on above: Result Comment: DUPL ICATE Performed By: #### L 500.2500, L100.0100 ####[facility] [address] [place], [address] MCHC Normal 32-36 [facility] Comment on above: Result Comment: DUPL ICATE Performed By: #### L 500.2500, L100.0100 ####[facility] [address] [place], [address] MCV Normal 81-99 [facility] Comment on above: Result Comment: DUPL ICATE Performed By: #### L 500.2500, L100.0100 ####[facility] [address] [place], [address] NEUT% Normal 47-70 [facility] Comment on above: Result Comment: DUPL ICATE Performed By: #### L 500.2500, L100.0100 ####[facility] [address] [place], [address] PLT Normal 150-450 [facility] Comment on above: Result Comment: DUPL ICATE Performed By: #### L 500.2500, L100.0100 ####[facility] [address] [place], [address] RBC Normal 4.2-5.4 [facility] Comment on above: Result Comment: DUPL ICATE Performed By: #### L 500.2500, L100.0100 ####[facility] [address] [place], [address] RDW CV Normal 11.6-14.6 [facility] Comment on above: Result Comment: DUPL ICATE Performed By: #### L 500.2500, L100.0100 ####[facility] [address] [place], [address] RDW SD Normal 35.1-43.9 [facility] Comment on above: Result Comment: DUPL ICATE Performed By: #### L 500.2500, L100.0100 ####[facility] [address] [place], [address] WBC Normal 4.4-11.0 [facility] Comment on above: Result Comment: DUPL ICATE Performed By: #### L 500.2500, L100.0100 ####[facility] [address] [place], [address] Absolute Lymph 0.17 X10 3/uL Low 0.83-4.51 [facility] Comment on above: Performed By: #### L 500.4050, L100.0100 #### [facility] [address] [place], [address] Absolute Neut 9.8 X10 3/uL High 2.0-7.7 [facility] Comment on above: Performed By: #### L 500.4050, L100.0100 #### [facility] [address] [place], [address] Basophils/100 WBC (Bld) 0.6 % Normal 0-1 [facility] Comment on above: Performed By: #### L 500.4050, L100.0100 #### [facility] [address] [place], [address] Eosinophils/100 WBC (Bld) 5.2 % High 0-5 [facility] Comment on above: Performed By: #### L 500.4050, L100.0100 #### [facility] [address] [place], [address] Erythrocyte distribution width (RBC) [Ratio] 13.8 % Normal 11.6-14.6 [facility] Comment on above: Performed By: #### L 500.4050, L100.0100 #### [facility] [address] [place], [address] Hematocrit (Bld) [Volume fraction] 48.6 % High 37-47 [facility] Comment on above: Performed By: #### L 500.4050, L100.0100 #### [facility] [address] [place], [address] Hemoglobin (Bld) [Mass/Vol] 16.2 g/dL High 12.0-15.0 [facility] Comment on above: Performed By: #### L 500.4050, L100.0100 #### [facility] [address] [place], [address] IG% 0.600 Normal 0.0-0.9 [facility] Comment on above: Result Comment: IG% - Immature Granulocytes (promyelocytes, myelocytes and metamyelocytes) > 1% indicates that a LEFT SHIFT is Present. Performed By: #### L 500.4050, L100.0100 #### [facility] [address] [place], [address] Lymphocytes/100 WBC (Bld) 1.5 % Low 19-41 [facility] Comment on above: Performed By: #### L 500.4050, L100.0100 #### [facility] [address] [place], [address] MCH (RBC) [Entitic mass] 28.7 pg Normal 27.0-32.0 [facility] Comment on above: Performed By: #### L 500.4050, L100.0100 #### [facility] [address] [place], [address] MCHC (RBC) [Mass/Vol] 33.3 g/dL Normal 32-36 [facility] Comment on above: Performed By: #### L 500.4050, L100.0100 #### [facility] [address] [place], [address] MCV (RBC) [Entitic vol] 86.0 fL Normal 81-99 [facility] Comment on above: Performed By: #### L 500.4050, L100.0100 #### [facility] [address] [place], [address] Monocytes/100 WBC (Bld) 5.9 % Normal 0-10 [facility] Comment on above: Performed By: #### L 500.4050, L100.0100 #### [facility] [address] [place], [address] Neutrophils/100 WBC (Bld) 86.2 % High 47-70 [facility] Comment on above: Performed By: #### L 500.4050, L100.0100 #### [facility] [address] [place], [address] Nucleated RBC (Bld) [#/Vol] 0 10*3/uL Normal 0-5 [facility] Comment on above: Performed By: #### L 500.4050, L100.0100 #### [facility] [address] [place], [address] Platelet mean volume (Bld) [Entitic vol] 10.4 fL Normal 6.2-12.0 [facility] Comment on above: Performed By: #### L 500.4050, L100.0100 #### [facility] [address] [place], [address] Platelets (Bld) [#/Vol] 156 10*3/uL Normal 150-450 [facility] Comment on above: Performed By: #### L 500.4050, L100.0100 #### [facility] [address] [place], [address] RBC (Bld) [#/Vol] 5.65 10*6/uL High 4.2-5.4 [facility] Comment on above: Performed By: #### L 500.4050, L100.0100 #### [facility] [address] [place], [address] RDW SD 43.5 fl Normal 35.1-43.9 [facility] Comment on above: Performed By: #### L 500.4050, L100.0100 #### [facility] [address] [place], [address] WBC (Bld) [#/Vol] 11.3 10*3/uL High 4.4-11.0 [facility] Comment on above: Performed By: #### L 500.4050, L100.0100 #### [facility] [address] [place], [address] Comprehensive Metabolic Prof ilon 10-19-2023 Albumin [Mass/Vol] 3.9 g/dL Normal 3.2-5.0 [facility] Comment on above: Performed By: #### L 500.4050, L100.0100 #### [facility] [address] [place], [address] Albumin/Globulin [Mass ratio] 1.0 {ratio} Normal 0.9-2.4 [facility] Comment on above: Performed By: #### L 500.4050, L100.0100 #### [facility] [address] [place], [address] ALK P 138 U/L High 45-117 [facility] Comment on above: Performed By: #### L 500.4050, L100.0100 #### [facility] [address] [place], [address] ALT [Catalytic activity/Vol] 48 U/L Normal 13-56 [facility] Comment on above: Performed By: #### L 500.4050, L100.0100 #### [facility] [address] [place], [address] AST [Catalytic activity/Vol] 49 U/L High 15-37 [facility] Comment on above: Result Comment: Slig ht Hemolysis, Result may be falsely increased. Performed By: #### L 500.4050, L100.0100 #### [facility] [address] [place], [address] Bilirubin [Mass/Vol] 0.90 mg/dL Normal 0.20-1.00 [facility] Comment on above: Result Comment: For patients on eltrombopag therapy, use of [place] [place] TBIL is not recommended. Performed By: #### L 500.4050, L100.0100 #### [facility] [address] [place], [address] BUN/CRE 13.1 RATIO Normal 10-20 [facility] Comment on above: Performed By: #### L 500.4050, L100.0100 #### [facility] [address] [place], [address] CA,Total 9.2 mg/dL Normal 8.5-10.1 [facility] Comment on above: Performed By: #### L 500.4050, L100.0100 #### [facility] [address] [place], [address] Chloride [Moles/Vol] 102 mmol/L Normal 98-107 [facility] Comment on above: Performed By: #### L 500.4050, L100.0100 #### [facility] [address] [place], [address] CO2 [Moles/Vol] 25.0 mmol/L Normal 21.0-32.0 [facility] Comment on above: Performed By: #### L 500.4050, L100.0100 #### [facility] [address] [place], [address] Creatinine [Mass/Vol] 0.92 mg/dL Normal 0.55-1.02 [facility] Comment on above: Result Comment: The validity of the calculated GFR GFRAA in patients over 70 years has not been determined. Clinical correlation is essential. Performed By: #### L 500.4050, L100.0100 #### [facility] [address] [place], [address] ECRCL 44.21 ml/min Normal [facility] Comment on above: Performed By: #### L 500.4050, L100.0100 #### [facility] [address] [place], [address] EST GFR - AA 77 mL/min Normal >60 [facility] Comment on above: Result Comment: Afri can Canadian GFR Calc Performed By: #### L 500.4050, L100.0100 #### [facility] [address] [place], [address] GAP 6 Normal 5-15 [facility] Comment on above: Performed By: #### L 500.4050, L100.0100 #### [facility] [address] [place], [address] GFR/1.73 sq M.predicted among non-blacks MDRD (S/P/Bld) [Vol rate/Area] 64 mL/min/{1.73_m2} Normal >60 [facility] Comment on above: Result Comment: Non- GFR Calc Performed By: #### L 500.4050, L100.0100 #### [facility] [address] [place], [address] Globulin (S) [Mass/Vol] 4.0 g/dL Normal 2.2-4.2 [facility] Comment on above: Performed By: #### L 500.4050, L100.0100 #### [facility] [address] [place], [address] Glucose [Mass/Vol] 141 mg/dL High 74-106 [facility] Comment on above: Result Comment: Fast ing Glucose result greater than or equal to 126 mg/dL suggests DIABETES MELLITUS per A.D.A. criteria. Performed By: #### L 500.4050, L100.0100 #### [facility] [address] [place], [address] Potassium [Moles/Vol] 3.5 mmol/L Normal 3.5-5.1 [facility] Comment on above: Result Comment: Slig ht Hemolysis, Result may be falsely increased. Performed By: #### L 500.4050, L100.0100 #### [facility] [address] [place], [address] Sodium [Moles/Vol] 133 mmol/L Low 136-145 [facility] Comment on above: Performed By: #### L 500.4050, L100.0100 #### [facility] [address] [place], [address] T PROT 7.9 g/dL Normal 6.4-8.2 [facility] Comment on above: Performed By: #### L 500.4050, L100.0100 #### [facility] [address] [place], [address] Urea nitrogen [Mass/Vol] 12 mg/dL Normal 7-18 [facility] Comment on above: Performed By: #### L 500.4050, L100.0100 #### [facility] [address] [place], [address] Discharge Instructionon 09-25 Discharge Instruction [facility] Medical Records Department [address] [place] [address] Instructions for Home/Discharge Instructions 10/19/232008 MR#: [id number] Acct: [id number] Name: SNOW SOLIS Rep #: [id number] : 1950 73 From: Daksha Ramos MD PCP: Care Physician,No Primary Status:REG [facility] Discharge Instructions Diet Discharge Diet: Light diet - advance as tolerated Activity Discharge Activity: May Not Drive (while taking narcotic pain medications.) May shower in (days): 1 Lifting Restrictions: no lifting >20 lbs x 2 wks, no strenuous exercise for 4 wks Dressing / Incision Call your doctor if your incision/area has: Continuous Slow Oozing, Sudden Increased Bleeding, Increased Pain/ Swelling, Increased Redness, Foul Smelling Discharge and Swelling at the incision site Call your doctor if you observe: Fever of 101 or Higher Remove Dressing in: 2 days Cleanse incision/area with: Soap Water Additional Dressing/Incision Instructions:: Steri-Strips will fall off in 7 to 10 days, if they do not fall off okay to remove after 10 days. Follow Up Care Please Follow Up With: Daksha Ramos MD When: Call the office for a follow-up appointment 2 weeks; after 5 PM and on the weekends call [phone] with any concerns. Test Results: Test results from this visit will be discussed in further detail at your follow-up appointment, if applicable. Discharge Plan Admission Attending Provider: Daksha Ramos Primary Care Provider: Care Physician,No Primary Instructions Print Language: Lao Discharge Orders/Prescriptions Prescriptions: New tramadol 50 mg tablet 50 mg PO Q6H PRN (Reason: pain) 3 Days Qty: 10 0RF Continued sertraline 100 mg tablet 200 mg PO DAILY cholecalciferol (vitamin D3) [Vitamin D3] 25 mcg (1,000 unit) capsule 25 mcg PO DAILY atorvastatin 40 mg tablet 40 mg PO QHS alendronate 70 mg tablet 70 mg PO QWEEK hydrochlorothiazide 25 mg tablet 25 mg PO DAILY Referrals / Follow Up: Care Physician,No Primary [Primary Care Provider] - Disposition Disposition (needs filled in before D/C Order can be placed): Home, Self Care 10/19/232014 Daksha Ramos MD CC: No Primary Care Physician Signed Normal [facility] Emergency Department Summary on 10-19-2023 Emergency Department Summary [facility] Medical Records Department [address] [place] [address] Emergency Department Summary 10/19/23 MR#: [id number] Acct: [id number] Name: SNOW SOLIS Rep #: [id number] : 1950 73 From: Eyal Pugh MD PCP: Care Physician,No Primary Status:REG ER Location: ED HPI HPI - GI History of Present Illness Chief Complaint: Abd Pain Detail of Chief Complaint: Abdominal pain that is localized to the right lower quadrant with nausea, l Informant: patient Abdominal Pain/Flank Pain Onset: Yesterday Context: Gradual Onset Timing: Continuous Quality: Aching Location: RLQ Current Severity: Moderate Maximum Severity: Severe Worsened by: Car ride and Movement Relieved by: Nothing Nausea/Vomiting/Emesis GI Symptom: Positive for Nausea Diarrhea/Melena/Hematoc hezia GI Symptom: Negative for Diarrhea, Melena or Hematochezia Associated Symptoms Associated Symptoms: Negative for Dysuria, Frequency, Hematuria or Urgency Narrative Narrative: Patient is a 73-year-old woman with history of hypertension, hypercholesterolemia and depression. She is on no anticoagulant. She presents with abdominal pain that has migrated to the right lower quadrant. Onset of pain last evening. She not anything to eat today. She does report nausea. She has no appetite. She denies fever or chills. She denies intolerance to greasy or fried foods. She denies history of diverticulosis or diverticulitis. She denies history of gynecologic disorder. She denies allergy to penicillin. She does have allergy to sulfa. She denies dysuria, frequency, urgency or hematuria. She denies flank pain. There is no history of trauma. She denies cardiac or respiratory symptoms. Prior similar symptoms: No Recent Illness/Hospitalization : No [facility] Medical History HTN (hypertension) Hyperlipemia Suicide attempt Depression Back pain Home Medications ???Medication ???Instructions ???Recorded ???Last Taken ???Type alendronate 70 mg tablet 70 mg PO QWEEK 10/19/23 Unknown History atorvastatin 40 mg tablet 40 mg PO QHS cholesterol 10/19/23 Unknown History cholecalciferol (vitamin D3) 25 25 mcg PO DAILY 10/19/23 Unknown History mcg (1,000 unit) capsule (Vitamin D3) hydrochlorothiazide 25 mg tablet 25 mg PO DAILY 10/19/23 Unknown History sertraline 100 mg tablet 200 mg PO DAILY 10/19/23 Unknown History Allergy/AdvReac Type Severity Reaction Status Date / Time Sulfa (Sulfonamide Allergy Mucosal Verified 10/19/23 14:55 Antibiotics) lesions Surgical History H/O unilateral oophorectomy Social History household members: none housing: house Smoking Status: Current every day smoker tobacco type: cigarettes ROS ROS ED Constitutional Constitutional ED: Denies chills, fever(s) or subjective ENT ENT ED: Denies ear pain, rhinorrhea or sore throat Cardiovascular Cardiovascular: Denies chest pain, palpitations or racing heartbeat Respiratory/Chest Respiratory/Chest: Denies cough, dyspnea or dyspnea on exertion Gastrointestinal Gastrointestinal: Reports abdominal pain, nausea and other Details: Anorexia. ; Denies constipation, diarrhea, melena or vomiting Genitourinary Genitourinary ED: Denies dysuria, hematuria or urinary frequency Musculoskeletal Musculoskeletal: Denies arthralgias, back pain, myalgias or neck pain Integumentary Denies abscess or rash Neurologic Neurologic: Denies headache(s), paresthesias or weakness Hematologic/Lymphatic Hematologic/Lymphatic: Denies easy bleeding or easy bruising EXAM Physical Exam Const Vital Signs: 10/19/23 14:53 10/19/23 16:58 10/19/23 18:01 Temperature 97.7 F L Temperature Source Temporal Pulse Rate 98 69 78 Respiratory Rate 18 16 16 Blood Pressure 138/90 H 141/83 H 124/78 H Blood Pressure Mean 106 102 93 Pulse Ox 92 99 98 Oxygen Delivery Method Room Air Room Air Room Air Positive well nourished and well developed Constitutional Narrative: Patient appears uncomfortable. General Appearance ED: well developed; Negative for pallor HEENT Reports TM's clear and dry mucous membranes normocephalic and atraumatic Tympanic Membrane ED: Yes TM's clear Mouth ED: Yes dry mucous membranes Mouth: dry mucous membranes Eyes PERRL and EOMs intact bilaterally General Eye ED: Negative for pale conjunctiva or scleral icterus Resp normal respiratory effort and clear to auscultation bilaterally Cardio regular rate, regular rhythm, S1 normal heart sound, S2 normal heart sound and no murmurs GI no masses; Negative for non-tender or non-distended GI Narrative: There is slight tympany to percussion. She has percussion (more content not included)... Normal [facility] H AND P Exam - Surgicalon H&P Exam - Surgical [facility] Medical Records Department [address] [place] [address] H P Exam - Surgical 10/19/23 1820 MR#: [id number] Acct: [id number] Name: SNOW SOLIS Rep #: [id number] : 1950 73 From: Daksha Ramos MD PCP: Care Physician,No Primary Status:REG ER Location: ED HPI - General General Date of Service: 10/19/23 HPI Narrative SNOW SOLIS, is a 73 F who presents presents to the ER due to right lower quadrant pain. Patient states abdominal pain is lower abdomen started last night. Patient did have nausea denies any vomiting. Patient last ate at noon yesterday had fried shrimp. Patient has had a colonoscopy but it was years ago per patient. Patient had a white blood count of 11.3 was given Zosyn in the ER. Patient CT abdomen abdomen pelvis showed acute appendicitis with appendicolith. There is also noted to be cholelithiasis. Patient denies any right upper quadrant pain after eating fatty or greasy foods in the past. Patient states the gallstone has been there for a while on previous images that she is aware of it. We do not have these images at our hospital. [facility] Medical History HTN (hypertension) Hyperlipemia Suicide attempt Depression Back pain Home Medications ???Medication ???Instructions ???Recorded ???Last Taken ???Type alendronate 70 mg tablet 70 mg PO QWEEK 10/19/23 Unknown History atorvastatin 40 mg tablet 40 mg PO QHS cholesterol 10/19/23 Unknown History cholecalciferol (vitamin D3) 25 25 mcg PO DAILY 10/19/23 Unknown History mcg (1,000 unit) capsule (Vitamin D3) hydrochlorothiazide 25 mg tablet 25 mg PO DAILY 10/19/23 Unknown History sertraline 100 mg tablet 200 mg PO DAILY 10/19/23 Unknown History Allergy/AdvReac Type Severity Reaction Status Date / Time Sulfa (Sulfonamide Allergy Mucosal Verified 10/19/23 14:55 Antibiotics) lesions Surgical History H/O unilateral oophorectomy Social History household members: none housing: house Smoking Status: Current every day smoker tobacco type: cigarettes Vital Signs Vital Signs Vital Signs: 10/19/23 14:53 10/19/23 16:58 10/19/23 18:01 Temperature 97.7 F L Temperature Source Temporal Pulse Rate 98 69 78 Respiratory Rate 18 16 16 Blood Pressure 138/90 H 141/83 H 124/78 H Blood Pressure Mean 106 102 93 Pulse Ox 92 99 98 Oxygen Delivery Method Room Air Room Air Room Air Weight Weight: 115 lb 1.301 oz Body Mass Index (BMI) 18.6 Physical Exam Const alert, oriented x3 and no apparent distress HEENT normocephalic and head/scalp atraumatic Resp normal respiratory effort Cardio regular rate GI soft to palpation; Negative for non-distended Palpation: tender RLQ; Negative for guarding Extremity no clubbing, cyanosis or edema Neuro CN's II-XII intact bilaterally Psych mental status grossly normal Results Lab / Micro Data 10/19/23 15:40 10/19/23 15:40 Labs: Laboratory Results - last 24 hr 10/19/23 15:40: WBC 11.3 H, RBC 5.65 H, Hgb 16.2 H, Hct 48.6 H, MCV 86.0, MCH 28.7, MCHC 33.3, RDW Std Deviation 43.5, RDW Coeff of Alida 13.8, Plt Count 156, MPV 10.4, Immature Gran % (Auto) 0.600, N eut % (Auto) 86.2 H, Lymph % (Auto) 1.5 L, Maries % (Auto) 5.9, Eos % (Auto) 5.2 H, Baso % (Auto) 0.6, Absolute Neuts (auto) 9.8 H, Absolute Lymphs (auto) 0.17 L, Nucleated RBC % 0, Sodium 133 L, Potassium 3.5, Chloride 102, Carbon Dioxide 25.0, Anion Gap 6, BUN 12, Creatinine 0.92, Estim Creat Clear Calc 44.21, Est GFR (MDRD) Af Amer 77, Est GFR (MDRD) Non-Af 64, BUN/Creatinine Ratio 13.1, G lucose 141 H, Calcium 9.2, Total Bilirubin 0.90, AST 49 H, ALT 48, Alkaline Phosphatase 138 H, Total Protein 7.9, Albumin 3.9, Globulin 4.0, Albumin/Globulin Ratio 1.0 10/19/23 16:02: Urine Color Yellow, Urine Clarity Clear, Urine pH 6.0, Ur Specific [place] 1.015, U rine Protein 30 H, Urine Glucose (UA) Normal, Urine Ketones 15 H, Urine Occult Blood 25 H, Urine Nitrite Negative, Urine Bilirubin 1 H, Urine Urobilinogen 1 H, Ur Leukocyte Esterase 25 H, Urine RBC 0-5 SEEN, Urine WBC 0 SEEN, Ur Squamous Epith Cells 0-5 SEEN, Urine Bacteria RARE, Urine Mucus 0 SEEN Imaging Radiology Impression Abdomen/Pelvis CT 10/19/23 17:18 IMPRESSION: Acute appendicitis. No obstruction or abscess. Colonic diverticulosis. Multiple gallstones. No biliary dilatation. Splenomegaly. N.B. : The above Results were Read Back by Khris Preston MD to Eyal Pugh MD, and understanding confirmed on 10/19/2023 18:12:38 (ET). Electronically Signed: Khris Preston MD at 18:13 EDT Reading Location ID and State: [id number] / [place] , Service support 1-8 (more content not included)... [facility] MR/POSTOP.[facility] 10-19-2023 MR/POSTOP.[facility] Medical Records Department [address] [place] [address] Anesthesia Postop Eval I 10/19/232025 MR#: [id number] Acct: [id number] Name: SNOW SOLIS Rep #: [id number] : 1950 73 From: Abhilash Wahl MD PCP: Care Physician,No Primary Status:[facility] Y Race: C Location: [facility] Anesthesia: Postop Eval I Current Vital Signs Temperature: 96.9 F Pulse Rate: 83 Blood Pressure: 137/87 Respiratory Rate: 16 Pulse Ox: 90 Oxygen Delivery Method: Room Air Assessment Airway patent: Yes Spontaneous unlabored respirations: Yes Mental status: Awake and Calm nausea: No Vomiting: No Anesthesia Complication: No Fluid Hydration Crystalloid volume administer (ml): 500 Total IV fluid infused: 500 Progress Note Anesthesia document: Postop Eval 1 completed: Yes 10/19/232026 Date Abhilash Wahl MD Cosigner Signature: Date CC: Signed [facility] MR/[id number] 10-19-2023 MR/POSTOPAN2 [facility] Medical Records Department [address] [place] [address] Anesthesia Postop Eval II 10/19/232026 MR#: [id number] Acct: [id number] Name: SNOW SOLIS Rep #: [id number] : 1950 73 From: Abhilash Wahl MD PCP: Care Physician,No Primary Status:REG [facility] Y Race: C Location: [facility] Anesthesia Postop Eval I Sum Postop Eval Completion status Anesthesia document: Postop Eval 1 completed: Yes Anesthesia Postop Eval I Summary Anesthesia Postop Eval I Summary: Anesthesia Postop Eval I: Assessment Summary Airway patent Yes 10/19/23 20:27 Spontaneous unlabored Yes 10/19/23 20:27 respirations Mental status Awake,Calm 10/19/23 20:27 nausea No 10/19/23 20:27 Vomiting No 10/19/23 20:27 Anesthesia Postop Eval I: Fluid Summary Crystalloid volume administer 500 10/19/23 20:27 (ml) Colloids volume administered ( ml) Blood Product volume administered (ml) Total IV fluid infused 500 10/19/23 20:27 Anesthesia Postop Eval I: Summary Notes Anesthesia Complication No 10/19/23 20:27 Anesthesia Complication Comment: Post-operative progress note Anesthesia: Postop Eval II Evaluation Mental status: Awake Pain Level: 1 nausea: No Vomiting: No Complications Anesthesia Complication: No 10/19/232027 Date Abhilash Wahl MD Cosigner Signature: Date CC: Signed Normal [facility] Operative Reporton 06-25-202 4 Operative Report [facility] Medical Records Department [address] [place] [address] Operative Report 10/19/232006 MR#: [id number] Acct: [id number] Name: SNOW SOLIS Rep #: [id number] : 1950 73 From: Daksha Ramos MD PCP: Care Physician,No Primary Status:[facility] Location: [place] [address] Report of Operation Date of Procedure: 10/19/23 Surgeon: Daksha Ramos Type of Anesthesia: General/Supplemental Anesthesiologist: Abhilash Wahl Special Medications: Zosyn 3.375 g IV x 1 given in ER for acute appendicitis Specimen's removed: Appendix Estimated Blood Loss (mL): < 10 cc Description of Procedure: Indications: 73-year-old female presented to the ER with new right lower quadrant pain starting last night. On workup she was found to have acute appendicitis on CT and a leukocytosis of 11.3. Patient was started on antibiotics in the ER for acute appendicitis-Zosyn 3.375 g IV x 1 Description of the procedure: The patient was placed on operating table in supine position. General anesthesia was induced. A timeout was completed verifying correct patient, procedure, position and special equipment prior to beginning procedure. Abdomen was prepped and draped in usual sterile fashion. Incision was made in the natural skin line above the umbilicus with a 15 blade scalpel. The fascia was elevated and incised. Entry into the peritoneum was confirmed visually and no bowel was noted in the vicinity of the incision. The Devlin trocar was placed under direct vision. Abdomen insufflated with a pressure of 12-15 mmHg. Patient tolerated insertion well. The scope was inserted and the abdomen inspected. No injuries from initial trocar placement were noted. Minimal amount of fluid was seen in the right lower quadrant. An direct visualization 2 -5 mm trocars were placed one above the symphysis pubis and below the hairline and one in the left lower quadrant lateral to the rectus muscle. Care is taken to avoid injury to the bladder and inferior epigastric vessels. Gallbladder was noted to be distended but no signs of inflammation and the stone was mobile. The table was placed in Trendelenburg position with the right side elevated. The appendix was grasped with atraumatic grasper and elevated. It was noted to be inflamed. A window was developed in the mesoappendix at the point between the base of the appendix and the cecum. An endoscopic 45 mm linear cutting stapler blue load was then used to divide and staple the base of the appendix. Enseal was used to divide the mesoappendix. The appendix was withdrawn into the Devlin trocar after being placed endoscopically retrieval bag. Appendix was sent to pathology. The appendiceal stump was then irrigated and hemostasis was assured. Fluid was suctioned no other pathology was identified. Secondary trochars were removed under direct visualization. No bleeding was noted trocar sites. The laparoscope withdrawn and the umbilical trocar removed. The abdomen was allowed to collapse. Local anesthesia of 0.5% Marcaine was used at the incision sites. The umbilical trocar site was closed with the [id number] 0 Vicryl suture. The skin was closed using sutures of 4-0 Monocryl and Steri-Strips. The patient was extubated. The patient tolerated the procedure well and was taken to the postanesthesia care unit in satisfactory condition. Complications none 10/20/23 0721 Cosigner Signature (if applicable): CC: Dr. Daksha Ramos MD; No Primary Care Physician Signed Normal [facility] Urinalysis, Completeon 10-18 BACTERIA Normal None Seen [facility] Comment on above: Order Comment: CLEAN CATCH Result Comment: DUPL ICATE Performed By: #### L 400.0001 ####[facility] [address] [place], [place], [id number] BILIRUBIN URINE Normal Negative [facility] Comment on above: Order Comment: CLEAN CATCH Result Comment: DUPL ICATE Performed By: #### L 400.0001 ####[facility] [address] [place], [address] Clarity (U) Normal Clear [facility] Comment on above: Order Comment: CLEAN CATCH Result Comment: DUPL ICATE Performed By: #### L 400.0001 ####[facility] [address] [place], [address] Color (U) Normal Yellow [facility] Comment on above: Order Comment: CLEAN CATCH Result Comment: DUPL ICATE Performed By: #### L 400.0001 ####[facility] [address] [place], [address] EPI,SQUAMOUS Normal 5-10 [facility] Comment on above: Order Comment: CLEAN CATCH Result Comment: DUPL ICATE Performed By: #### L 400.0001 ####[facility] [address] [facility] [address] GLUCOSE, UR Normal Normal [facility] Comment on above: Order Comment: CLEAN CATCH Result Comment: DUPL ICATE Performed By: #### L 400.0001 ####[facility] [address] [place], [address] KETONE UR Normal Negative [facility] Comment on above: Order Comment: CLEAN CATCH Result Comment: DUPL ICATE Performed By: #### L 400.0001 ####[facility] [address] [facility] [address] LEUK ESTERASE Normal Negative [facility] Comment on above: Order Comment: CLEAN CATCH Result Comment: DUPL ICATE Performed By: #### L 400.0001 ####[facility] [address] [place], [address] Mucus Ql (Urine sed) Normal [facility] Comment on above: Order Comment: CLEAN CATCH Result Comment: DUPL ICATE Performed By: #### L 400.0001 ####[facility] [address] [facility] [address] Nitrite Ql (U) Normal Negative [facility] Comment on above: Order Comment: CLEAN CATCH Result Comment: DUPL ICATE Performed By: #### L 400.0001 ####[facility] [address] [facility] [address] OCCULT BLOOD-UR Normal Negative [facility] Comment on above: Order Comment: CLEAN CATCH Result Comment: DUPL ICATE Performed By: #### L 400.0001 ####[facility] [address] [place], [address] pH UR Normal 5.0 - 8.0 [facility] Comment on above: Order Comment: CLEAN CATCH Result Comment: DUPL ICATE Performed By: #### L 400.0001 ####[facility] [address] [place], [address] PROT DIPSTX Normal Negative [facility] Comment on above: Order Comment: CLEAN CATCH Result Comment: DUPL ICATE Performed By: #### L 400.0001 ####[facility] [address] [place], [address] RBC Normal 0-5 [facility] Comment on above: Order Comment: CLEAN CATCH Result Comment: DUPL ICATE Performed By: #### L 400.0001 ####[facility] [address] [place], [address] SP.GR. DIPSTX Normal 1.002-1.030 [facility] Comment on above: Order Comment: CLEAN CATCH Result Comment: DUPL ICATE Performed By: #### L 400.0001 ####[facility] [id number] [place], [address] UR Preservative Normal [facility] Comment on above: Order Comment: CLEAN CATCH Result Comment: DUPL ICATE Performed By: #### [id number] ####[facility] [address] [place], [address] UROBILI Normal Normal [facility] Comment on above: Order Comment: CLEAN CATCH Result Comment: DUPL ICATE Performed By: #### [id number] ####[facility] [id number] [place], [address] WBC Normal 0-5 [facility] Comment on above: Order Comment: CLEAN CATCH Result Comment: DUPL ICATE Performed By: #### [id number] ####[facility] [address] [place] [id number] BACTERIA RARE Normal None Seen [facility] Comment on above: Order Comment: CLEAN CATCH Performed By: #### [id number] ####[facility] [address] [place], [address] EPI,SQUAMOUS 0-5 SEEN Normal 5-10 [facility] Comment on above: Order Comment: CLEAN CATCH Performed By: #### [id number] ####[facility] [address] [place], [address] RBC 0-5 SEEN Normal 0-5 [facility] Comment on above: Order Comment: CLEAN CATCH Performed By: #### [id number] ####[facility] [address] [place], [address] Mucus Ql (Urine sed) 0 SEEN Normal [facility] Comment on above: Order Comment: CLEAN CATCH Performed By: #### [id number] ####[facility] [id number] [place], [address] WBC 0 SEEN Normal 0-5 [facility] Comment on above: Order Comment: CLEAN CATCH Performed By: #### [id number] ####[facility] [address] [place], [address] THYROID STIMULATING HORMONEo n 08-10-2023 TSH Qn 0.957 m[IU]/L 0.270 - 4.200 mIU/L [facility] XR Thoracic spine AP and Lat eral and Swimmerson 07-24-2020 IMPRESSION: Spondylosis of the thoracic spine. E Commerce Director: PSC[facility] Transcribe Date/Time: Jul 24 2020 1:23P Dictated by : PUJA SALGADO MD This examination was interpreted and the report reviewed and electronically signed by: PUJA SALGADO MD on Jul 24 2020 1:24PM [facility] DIVISION OF RADIOLOGY * * *Final Report* * * DATE OF EXAM: Jul 24 2020 10:55AM WOX [id number] - XR THORACIC 3V AP/LAT/SWIMMERS / PROCEDURE REASON: Acute right-sided thoracic back pain * * * * Physician Interpretation * * * * Thoracic spine radiographs HISTORY: 70 years old Clinical information: Acute right-sided thoracic back pain Chronic right sided thoracic pain that has increased over the last several months without injury TECHNIQUE: Images: XR THORACIC 3V AP/LAT/SWIMMERS Comparison: None. RESULT: Findings: Intervertebral disc space narrowing and endplate osteophyte formation at multiple levels in the thoracic spine. No fracture. Right-sided convex curvature of the lower thoracic/upper lumbar spine. Paraspinous soft tissues are unremarkable in appearance. DIVISION OF RADIOLOGY Provider, [facility] - 07/24/2020 * * *Final Report* * * DATE OF EXAM: Jul 24 2020 10:55AM WOX [id number] - XR THORACIC 3V AP/LAT/SWIMMERS / PROCEDURE REASON: Acute right-sided thoracic back pain * * * * Physician Interpretation * * * * Thoracic spine radiographs HISTORY: 70 years old Clinical information: Acute right-sided thoracic back pain Chronic right sided thoracic pain that has increased over the last several months without injury TECHNIQUE: Images: XR THORACIC 3V AP/LAT/SWIMMERS Comparison: None. RESULT: Findings: Intervertebral disc space narrowing and endplate osteophyte formation at multiple levels in the thoracic spine. No fracture. Right-sided convex curvature of the lower thoracic/upper lumbar spine. Paraspinous soft tissues are unremarkable in appearance. IMPRESSION IMPRESSION: Spondylosis of the thoracic spine. E Commerce Director[facility] Transcribe Date/Time: Jul 24 2020 1:23P Dictated by : PUJA SALGADO MD This examination was interpreted and the report reviewed and electronically signed by: PUJA SALGADO MD on Jul 24 2020 1:24PM EST [facility] Radiology Study observation (narrative) [facility] XR Thoracic spine AP and Lat eral and SwimmersOrdered By: Ccf Provider on 07-24-2020 [facility] Vital Signs Date Time Vital Sign Value Performing Clinician Diann hill 11-24-2024 12:56-0400 Body height 167.64 cm No Primary Care Physician [facility] 11-24-2024 12:56-0400 Body mass index (BMI) [Ratio] 19.8 kg/m2 No Primary Care Physician [facility] 11-24-2024 12:56-0400 Body temperature 98.3 [degF] No Primary Care Physician [facility] 11-24-2024 12:56-0400 Body weight 55.7 kg No Primary Care Physician [facility] 11-24-2024 12:56-0400 Diastolic blood pressure 96 mm[Hg] No Primary Care Physician [facility] 11-24-2024 12:56-0400 Heart rate 94 /min No Primary Care Physician [facility] 11-24-2024 12:56-0400 Respiratory rate 16 /min No Primary Care Physician [facility] 11-24-2024 12:56-0400 SaO2% (BldA) [Mass fraction] 99 % No Primary Care Physician [facility] 11-24-2024 12:56-0400 Systolic blood pressure 157 mm[Hg] No Primary Care Physician [facility] 07-31-2024 14:01-0400 Body height 167.64 cm No Primary Care Physician [facility] 07-31-2024 14:01-0400 Body mass index (BMI) [Ratio] 20.2 kg/m2 No Primary Care Physician [facility] 07-31-2024 14:01-0400 Body temperature 97 [degF] No Primary Care Physician [facility] 07-31-2024 14:01-0400 Body weight 56.83 kg No Primary Care Physician [facility] 07-31-2024 14:01-0400 Diastolic blood pressure 95 mm[Hg] No Primary Care Physician [facility] 07-31-2024 14:01-0400 Heart rate 95 /min No Primary Care Physician [facility] 07-31-2024 14:01-0400 Respiratory rate 16 /min No Primary Care Physician [facility] 07-31-2024 14:01-0400 SaO2% (BldA) [Mass fraction] 94 % No Primary Care Physician [facility] 07-31-2024 14:01-0400 Systolic blood pressure 154 mm[Hg] No Primary Care Physician [facility] 07-20-2022 10:02-0400 Body weight 59.42 kg Dinorah Eduardo APRN.BATCH UNLOADER Work Phone: [facility] 07-20-2022 10:02-0400 Diastolic blood pressure 86 mm[Hg] Dinorah Podlogar COLLAR STAY FUSER TENDER.BATCH UNLOADER Work Phone: [facility] 07-20-2022 10:02-0400 Heart rate 80 /min Dinorah Podlogar COLLAR STAY FUSER TENDER.BATCH UNLOADER Work Phone: [facility] 07-20-2022 10:02-0400 Respiratory rate 18 /min Dinorah Podlogar COLLAR STAY FUSER TENDER.BATCH UNLOADER Work Phone: [facility] 07-20-2022 10:02-0400 SaO2% (BldA) [Mass fraction] 94 % Dinorah Podlogar COLLAR STAY FUSER TENDER.BATCH UNLOADER Work Phone: [facility] 07-20-2022 10:02-0400 Systolic blood pressure 118 mm[Hg] Dinorah Podlogar COLLAR STAY FUSER TENDER.BATCH UNLOADER Work Phone: [facility] 09-08-2021 10:09-0400 Body weight 61.6 kg Dinorah Podlogar COLLAR STAY FUSER TENDER.BATCH UNLOADER Work Phone: [facility] 09-08-2021 10:09-0400 Diastolic blood pressure 82 mm[Hg] Dinorah Podlogar COLLAR STAY FUSER TENDER.BATCH UNLOADER Work Phone: [facility] 09-08-2021 10:09-0400 Heart rate 73 /min Dinorah Podlogar COLLAR STAY FUSER TENDER.BATCH UNLOADER Work Phone: [facility] 09-08-2021 10:09-0400 Respiratory rate 18 /min Dinorah Podlogar COLLAR STAY FUSER TENDER.BATCH UNLOADER Work Phone: [facility] 09-08-2021 10:09-0400 SaO2% (BldA) [Mass fraction] 94 % Dinorah Podlogar COLLAR STAY FUSER TENDER.BATCH UNLOADER Work Phone: [facility] 09-08-2021 10:09-0400 Systolic blood pressure 126 mm[Hg] Dinorah Podlogar COLLAR STAY FUSER TENDER.BATCH UNLOADER Work Phone: [facility] Encounters Encounter Date Encounter Type Care Provider Facility Start: 11-24-2024 End: 11-24-2024 Emergency department patient visit No Primary Care Physician -Emergency Department Work Phone: Start: 10-19-2024 End: 10-23-2024 Telephone encounter Dinorah Podlogar COLLAR STAY FUSER TENDER.BATCH UNLOADER Work Phone: [facility] [place] Comment on above: Refill Request; No P CP; Future Appointment Start: 09-11-2024 End: 09-25-2024 Telephone encounter Dinorah Podlogar COLLAR STAY FUSER TENDER.BATCH UNLOADER Work Phone: [facility] [place] Comment on above: Other Start: 07-31-2024 End: 07-31-2024 Emergency department patient visit No Primary Care Physician -Emergency Department Work Phone: Start: 05-11-2024 End: 05-11-2024 Refill Dinorah Podlogar COLLAR STAY FUSER TENDER.BATCH UNLOADER Work Phone: [facility] [place] Comment on above: Refill Request Start: 03-06-2024 End: 03-06-2024 Refill Dinorah Podlogar COLLAR STAY FUSER TENDER.BATCH UNLOADER Work Phone: [facility] [place] Comment on above: Refill Request Start: 02-24-2024 End: 02-24-2024 Refill Dinorah Podlogar COLLAR STAY FUSER TENDER.BATCH UNLOADER Work Phone: [facility] [place] Comment on above: Refill Request Start: 02-03-2024 End: 02-03-2024 Refill Dinorah Podlogar COLLAR STAY FUSER TENDER.BATCH UNLOADER Work Phone: [facility] [place] Comment on above: Refill Request Start: 02-01-2024 End: 02-01-2024 Refill Dinorah Podlogar COLLAR STAY FUSER TENDER.BATCH UNLOADER Work Phone: [facility] [place] Comment on above: Refill Request Start: 01-21-2024 End: 01-21-2024 Refill Dinorah Podlogar COLLAR STAY FUSER TENDER.BATCH UNLOADER Work Phone: [facility] [place] Comment on above: Refill Request Start: 12-29-2023 End: 01-03-2024 ambulatory Dinorah Podlogar COLLAR STAY FUSER TENDER.BATCH UNLOADER Work Phone: [facility] [place] Start: 11-03-2023 End: 07-10-2024 Refill Dinorah Podlogar COLLAR STAY FUSER TENDER.BATCH UNLOADER Work Phone: Family [facility] Comment on above: Refill Request Start: 10-19-2023 End: 10-20-2023 ambulatory No Primary Care Physician Facility:[facility] Start: 09-02-2023 [facility] Dinorah Podlogar COLLAR STAY FUSER TENDER.BATCH UNLOADER Work Phone: Ambulatory Surgery Start: 09-02-2023 ambulatory Dinorah Podlogar COLLAR STAY FUSER TENDER.BATCH UNLOADER Work Phone: Ambulatory Surgery Start: 08-11-2023 Telephone encounter Dinorah Podl ogar COLLAR STAY FUSER TENDER.BATCH UNLOADER Work Phone: Family [facility] [place] Comment on above: Results Start: 08-10-2023 End: 08-10-2023 Patient encounter procedure Dinorah Podlogar COLLAR STAY FUSER TENDER.BATCH UNLOADER Work Phone: [facility] Comment on above: Essential hypertensi on (Primary Dx); Mixed hyperlipidemia; Osteoporosis; Major depression, recurrent, chronic (HCC); Weight loss; Change in stool; Tobacco use disorder; Fatigue, unspecified type; Stage 3a chronic kidney disease (HCC); Lumbar back pain; Age-related osteoporosis without current pathological fracture Start: 07-27-2023 ambulatory Dinorah Podlogar COLLAR STAY FUSER TENDER.BATCH UNLOADER Work Phone: Internal Medicine [facility] Start: 07-21-2023 Refill Marry Castellanos COLLAR STAY FUSER TENDER .BATCH UNLOADER Work Phone: [facility] [place] Comment on above: Refill Request; Open ed In Error Start: 07-06-2023 Refill Dinorah Podlogar COLLAR STAY FUSER TENDER.BATCH UNLOADER Work Phone: Family [facility] Comment on above: Refill Request Start: 01-27-2023 ambulatory Dinorah Podlogar COLLAR STAY FUSER TENDER.BATCH UNLOADER Work Phone: [facility] [place] Start: 09-18-2022 Refill Dinorah Podlogar COLLAR STAY FUSER TENDER.BATCH UNLOADER Work Phone: [facility] [place] Comment on above: Refill Request Start: 08-18-2022 ambulatory Kareen Gilbert [facility] [place] Comment on above: [facility] ([facility]) Start: 07-20-2022 End: 07-20-2022 Patient encounter procedure Dinorah Podlogar COLLAR STAY FUSER TENDER.BATCH UNLOADER Work Phone: [facility] [place] Comment on above: Essential hypertensi on (Primary Dx); Mixed hyperlipidemia; Major depression, recurrent, chronic (HCC); Screening for colon cancer; Encounter for immunization; Chest wall pain; Stage 3a chronic kidney disease (HCC); Dizziness; Tobacco use disorder; Osteoporosis, unspecified osteoporosis type, unspecified pathological fracture presence; Vitamin D deficiency Start: 07-13-2022 Refill Dinorah Podlogar COLLAR STAY FUSER TENDER.BATCH UNLOADER Work Phone: [facility] [place] Comment on above: Refill Request Start: 07-10-2022 Refill Dinorah Podlogar COLLAR STAY FUSER TENDER.BATCH UNLOADER Work Phone: [facility] [place] Comment on above: Refill Request Start: 03-23-2022 Refill Dinorah Podlogar COLLAR STAY FUSER TENDER.BATCH UNLOADER Work Phone: [facility] [place] Comment on above: Refill Request Start: 01-28-2022 ambulatory Dinorah Podlogar COLLAR STAY FUSER TENDER.BATCH UNLOADER Work Phone: [facility] [place] Start: 01-05-2022 Refill Dinorah Podlogar COLLAR STAY FUSER TENDER.BATCH UNLOADER Work Phone: [facility] [place] Comment on above: Refill Request Start: 12-31-2021 Refill Dinorah Podlogar COLLAR STAY FUSER TENDER.BATCH UNLOADER Work Phone: [facility] [place] Comment on above: Refill Request Start: 09-16-2021 Refill Dinorah Podlogar COLLAR STAY FUSER TENDER.BATCH UNLOADER Work Phone: [facility] [place] Comment on above: Refill Request Start: 09-09-2021 Telephone encounter Dinorah Podl ogar COLLAR STAY FUSER TENDER.BATCH UNLOADER Work Phone: [facility] [place] Comment on above: Results Start: 09-08-2021 End: 09-08-2021 Patient encounter procedure Dinorah Podlogar COLLAR STAY FUSER TENDER.BATCH UNLOADER Work Phone: [facility] [place] Comment on above: Essential hypertensi on (Primary Dx); Osteoarthritis, unspecified osteoarthritis type, unspecified site; Encounter for screening fecal occult blood testing; Encounter for screening for lung cancer; Major depression, recurrent, chronic (HCC); Mixed hyperlipidemia; Tobacco use disorder; Lumbar back pain; Stage 3a chronic kidney disease (HCC) Start: 08-25-2021 Refill Dinorah Podlogar COLLAR STAY FUSER TENDER.BATCH UNLOADER Work Phone: [facility] [place] Comment on above: Refill Request Start: 08-06-[address] [facility] [place] Comment on above: Refill Request Start: 07-24-2020 End: 07-24-2020 Subsequent hospital visit by physician Xr [facility] [place] Work Phone: Radiology Comment on above: Acute right-sided th oracic back pain [M54.6] Procedures Date Procedure Procedure Detail Performing Clinician Start: 07-31-2024 Urnls dip stick/tablet reagent auto microscopy No Primary Care Physician Start: 07-31-2024 Computed tomography of abdomen and pelvis with intravenous contrast No Primary Care Physician Start: 07-31-2024 CT of lumbar spine No Primary Care Physician Start: 07-31-2024 Estimated creatinine clearance No Primary Care Physician Start: 08-10-2023 Lipid 1996 panel - Serum or Plasma Dinorah Podlogar COLLAR STAY FUSER TENDER.BATCH UNLOADER Work Phone: Start: 07-20-2022 [employer] COVID-19 BIVALENT BOOSTER VACCINE, AGE 12+ YR Dinorah Podlogar COLLAR STAY FUSER TENDER.BATCH UNLOADER Work Phone: Start: 09-08-2021 Lipid 1996 panel - Serum or Plasma Dinorah Podlogar COLLAR STAY FUSER TENDER.BATCH UNLOADER Work Phone: Start: 07-24-2020 Radex spine thoracic 3 views Dinorah Podlogar COLLAR STAY FUSER TENDER.BATCH UNLOADER Work Phone: Start: 04-16-2015 Mammography Tati Hardwick PSS History of appendectomy History of append ectomy No Primary Care Physician Plan of Treatment Date Care Activity Detail Author Start: 08-09-2028 Lipid panel Lipid Screening [facility] Start: 09-08-2026 Lipid 1996 panel - Serum or Plasma Lipid Screening [facility] Start: 09-08-2026 Lipid panel Lipid Screening [facility] Start: 09-08-2026 LIPID SCREEN LIPID SCREEN [facility] Start: 08-09-2026 Diabetes Screening Diabetes Screenin g [facility] Start: 12-25-2024 Influenza vaccination Influenz a Vaccine (Season Ended) [facility] Start: 11-30-2024 LIPID SCREEN LIPID SCREEN [facility] Start: 09-08-2024 DIABETES SCREEN DIABETES SCREEN [facility] Start: 09-08-2024 Diabetes Screening Diabetes Screenin g [facility] Start: 08-09-2024 Annual PCP Team Eeg Technologist yanni Disease Visit Annual PCP Team Chronic Disease Visit [facility] Start: 08-09-2024 Creatinine measurement Serum Creatin ine [facility] Start: 04-26-2024 Advance Directive Discussion Advance Directive Discussion [facility] Start: 01-24-2024 RSV Vaccine (1 - 1-d ose 75+ series) RSV Vaccine (1 - 1-dose 75+ series) [facility] Start: 12-26-2023 Covid-19 Vaccine ( season) Covid-19 Vaccine ( season) [facility] Start: 12-26-2023 Covid-19 Vaccine ( season) Covid-19 Vaccine ( season) [facility] Start: 12-26-2023 Influenza vaccination C [facility] Start: 09-05-2023 DIABETES SCREEN DIABETES SCREEN [facility] Start: 07-27-2023 End: 10-26-2023 ALBUMIN/CREAT RATIO RND UR ALBUMIN/CREAT RATIO RND UR Lab Routine Stage 3a chronic kidney disease (HCC) Expected: 07/27/2023, Expires: 10/26/2023 [facility] Work Phone: Comment on above: Expected: 07/27/2023 , Expires: 10/26/2023 Start: 07-27-2023 End: 10-26-2023 Basic metabolic 2000 panel - Serum or Plasma BASIC METABOLIC PNL Lab Routine Stage 3a chronic kidney disease (HCC) Expected: 07/27/2023, Expires: 10/26/2023 [facility] Work Phone: Comment on above: Expected: 07/27/2023 , Expires: 10/26/2023 Start: 07-27-2023 End: 10-26-2023 CBC panel - Blood by Automated count CBC Lab Routine Stage 3a chronic kidney disease (HCC) Expected: 07/27/2023, Expires: 10/26/2023 [facility] Work Phone: Comment on above: Expected: 07/27/2023 , Expires: 10/26/2023 Start: 07-27-2023 End: 10-26-2023 Lipid 1996 panel - Serum or Plasma LIPID PANEL BASIC Lab Routine Mixed hyperlipidemia Expected: 07/27/2023, Expires: 10/26/2023 [facility] Work Phone: Comment on above: Expected: 07/27/2023 , Expires: 10/26/2023 Start: 07-27-2023 End: 10-26-2023 Renal function 2000 panel - Serum or Plasma RENAL FUNCTION PANEL Lab Routine Stage 3a chronic kidney disease (HCC) Expected: 07/27/2023, Expires: 10/26/2023 [facility] Work Phone: Comment on above: Expected: 07/27/2023 , Expires: 10/26/2023 Start: 07-21-2023 ANNUAL PCP TEAM RESIDENT PHYSICIAN IN RADIOLOGY YANNI DISEASE VISIT ANNUAL PCP TEAM CHRONIC DISEASE VISIT [facility] Start: 07-21-2023 [facility]enza [facility] Comment on above: Postponed from 01/23 (Declined at this time) Start: 07-21-2023 Screening for malign ant neoplasm of lung Lung Cancer Screening [facility] Comment on above: Postponed from 01/23 (Declined at this time) Start: 04-26-2023 Advance Directive Discussion Advance Directive Discussion [facility] Start: 12-25-2022 Covid-19 Vaccine ( season) Covid-19 Vaccine ( season) [facility] Start: 12-25-2022 Influenza vaccination C [facility] Start: 11-19-2022 Covid-19 Vaccine (5 - Moderna series) Covid-19 Vaccine (5 - Moderna series) [facility] Start: 09-08-2022 ANNUAL PCP TEAM RESIDENT PHYSICIAN IN RADIOLOGY YANNI DISEASE VISIT ANNUAL PCP TEAM CHRONIC DISEASE VISIT [facility] Start: 09-08-2022 Creatinine measurement Serum Creatin ine [facility] Start: 09-08-2022 SERUM CREATININE SERUM CREATININE Cl [facility] Start: 07-20-2022 End: 09-19-2022 25-hydroxyvitamin D3 [Mass/volume] in Serum or Plasma VITAMIN D 25 HYDROXY Lab Routine Vitamin D deficiency Expected: 07/20/2022, Expires: 09/19/2022 [facility] Work Phone: Comment on above: Expected: 07/20/2022 , Expires: 09/19/2022 Start: 07-20-2022 End: 09-19-2022 CBC W Auto Differential panel - Blood CBC + DIFF Lab Routine Essential hypertension Expected: 07/20/2022, Expires: 09/19/2022 [facility] Work Phone: Comment on above: Expected: 07/20/2022 , Expires: 09/19/2022 Start: 07-20-2022 End: 09-19-2022 Comprehensive metabolic 2000 panel - Serum or Plasma COMP METABOLIC PANEL Lab Routine Mixed hyperlipidemia Essential hypertension Expected: 07/20/2022, Expires: 09/19/2022 [facility] Work Phone: Comment on above: Expected: 07/20/2022 , Expires: 09/19/2022 Start: 07-20-2022 End: 09-19-2022 Lipid 1996 panel - Serum or Plasma LIPID PANEL BASIC Lab Routine Mixed hyperlipidemia Expected: 07/20/2022, Expires: 09/19/2022 [facility] Work Phone: Comment on above: Expected: 07/20/2022 , Expires: 09/19/2022 Start: 04-26-2022 ADVANCE DIRECTIVE DISCUSSION ADVANCE DIRECTIVE DISCUSSION [facility] Start: 03-03-2022 ANNUAL PCP TEAM RESIDENT PHYSICIAN IN RADIOLOGY YANNI DISEASE VISIT ANNUAL PCP TEAM CHRONIC DISEASE VISIT [facility] Start: 03-03-2022 BP CONTROLLED (<130/80) BP CONTROLLE D (<130/80) [facility] Start: 03-03-2022 Urine microalbumin profile DTAP,TDAP,TD (1 - Tdap) [facility] Comment on above: Postponed from 01/23 (Declined at this time) Start: 09-01-2022 Influenza vaccination INFLUENZA (#1) [facility] Start: 08-13-2021 COVID-19 VACCINE (4 - Booster for Moderna series) COVID-19 VACCINE (4 - Booster for Moderna series) [facility] Start: 06-09-2021 COVID-19 VACCINE (4 - Booster for Moderna series) COVID-19 VACCINE (4 - Booster for Moderna series) [facility] Start: 04-26-2021 ADVANCE DIRECTIVE DISCUSSION ADVANCE DIRECTIVE DISCUSSION [facility] Start: 03-05-2021 COVID-19 VACCINE (3 - Booster for Moderna series) COVID-19 VACCINE (3 - Booster for Moderna series) [facility] Start: 12-11-2020 COLORECTAL CANCER SCREENING COLORECTAL CANCER SCREENING [facility] Start: 12-11-2020 FECAL OCCULT BLOOD FECAL OCCULT BLOO D [facility] Start: 12-11-2020 Screening for malign ant neoplasm of colon [facility] Start: 02-18-2018 Screening for osteoporosis Bone Density Screening [facility] Start: 04-16-2016 Mammography [facility] Start: 04-16-2016 Screening for malign ant neoplasm of breast Mammogram Screening [facility] Start: 12-25-2013 Medicare Annual Wellness Visit Medicare Annual Wellness Visit [facility] Start: 2009 RSV Vaccine (1 - 1-d ose 60+ series) RSV Vaccine (1 - 1-dose 60+ series) [facility] Start: 01-24-2004 Influenza vaccination LUNG CANCER [facility] Start: 1999 Influenza vaccination LUNG CANCER [facility] Start: 1999 Screening for malign ant neoplasm of lung Lung Cancer Screening [facility] Start: 1999 SHINGRIX VACCINE (1 of 2) SHINGRIX VACCINE (1 of 2) [facility] Start: 1994 COLOGUARD (FIT-DNA) COLOGUARD (FIT-D NA) [facility] Start: 1994 Colonoscopy COLONOSCOPY [facility] Start: [address] COLONOGRAPHY [facility] Start: 1994 Screening for malign ant neoplasm of colon [facility] Start: 1994 SIGMOIDOSCOPY SIGMOIDOSCOPY [facility] Start: 01-24-1968 Urine microalbumin profile [facility] Start: 1967 Anxiety Screening Anxiety Screening [facility] Start: 1955 PNEUMOCOCCAL: 65+ (1 - PCV) PNEUMOCOCCAL: 65+ (1 - PCV) [facility] COLOGUARD COLOGUARD Lab Ro utine Screening for colon cancer Ordered: 07/20/2022 [facility] Work Phone: Comment on above: Ordered: 07/20/2022 End: 01-27-2025 DBT Breast - bilateral screening KUN SCREENING W JOMAR Radiology Routine Encounter for screening mammogram for breast cancer 1 Occurrences starting 12/29/2023 until 01/27/2025 [facility] Work Phone: Comment on above: 1 Occurrences starti ng 12/29/2023 until 01/27/2025 End: 07-21-2023 ECG COMPLETE ECG COMPLETE ECG Routine Chest wall pain 1 Occurrences starting 07/20/2022 until 07/21/2023 [facility] Work Phone: Comment on above: 1 Occurrences starti ng 07/20/2022 until 07/21/2023 Hemoglobin.gastroint est inal.lower [Presence] in Stool by Immunoassay FECAL OCCULT BLOOD TEST Lab Routine Encounter for screening fecal occult blood testing Ordered: 09/08/2021 [facility] Work Phone: Comment on above: Ordered: 09/08/2021 End: 02-26-2024 KUN SCREENING KUN SCREENING Radiology Routine Encounter for screening mammogram for breast cancer 1 Occurrences starting 01/27/2023 until 02/26/2024 [facility] Work Phone: Comment on above: 1 Occurrences starti ng 01/27/2023 until 02/26/2024 Patient Education Back Basics: A Healthy Spine [facility] Work Phone: Patient referral [facility] Work Phone: End: 02-27-2023 Screening mammography bi 2-view breast inc cad KUN SCREENING Radiology Routine Encounter for screening mammogram for breast cancer 1 Occurrences starting 01/28/2022 until 02/27/2023 [facility] Work Phone: Comment on above: 1 Occurrences starti ng 01/28/2022 until 02/27/2023 [facility] Immunizations Immunization Date Immunization Notes Care Provider Farhat salas 07-20-2022 COVID-19 booster vac cine, age 12+ yr, bivalent (PFIZER-BIONTECH) Dinorah Podlogar COLLAR STAY FUSER TENDER.ZOILA Work Phone: [facility] 01-10-2021 influenza virus vacc ine, unspecified formulation Dinorah Podlogar COLLAR STAY FUSER TENDER.BATCH UNLOADER Work Phone: [facility] 12-01-2019 pneumococcal polysaccharide vaccine, 23 valent Tati Seal [facility] 03-04-2016 influenza, high dose seasonal, preservative-free Tati Seal [facility] 05-22-2015 pneumococcal conjuga te vaccine, 13 valent Tati Seal [facility] 04-10-2015 influenza, high dose seasonal, preservative-free Tati Seal [facility] Payers Date Payer Category Payer Medicare [id number] 2023 Self-pay 2013 Medicare MEDICARE MEDICAR E A AND B [id number] 2013-Present [phone] [address] [address] [place] [address] Medicare [id number] 2013 Medicare [id number] Medicaid [id number] Unknown [id number] Unknown [id number] Unknown [id number] Unknown [id number] Unknown [id number] Social History Date Type Detail Facility Start: 04-10-2015 End: 07-31-2024 Tobacco smoking status NHIS Smokes tobacco daily [facility] Work Phone: Start: 1968 History of tobacco use Cigarette Smo ker [facility] Work Phone: Start: 04-10-2015 End: 08-10-2023 Cigarettes smoked current (pack per day) - Reported 1.5 [facility] Start: 04-10-2015 End: 07-20-2022 Tobacco use and exposure Smokeless tobacco non-user [facility] Work Phone: Start: 08-22-2020 End: 08-10-2023 Alcohol intake Current non-drinker of alcohol (finding) [facility] Start: 1950 Sex Assigned At Not on file C [facility] Start: 06-24-2020 End: 08-20-2021 Exposure to SARS-CoV-2 (event) Not sure [facility] Start: 07-20-2022 End: 08-10-2023 Tobacco use panel [facility] Adult Depression Screening Assessment 6 [facility] Start: 07-31-2024 Sex Female (finding) [facility] Start: 1950 Sex Assigned At Female W [facility] Medical Equipment Procedure Code Equipment Code Equipment Origin al Text Equipment Identifier Dates Appendectomy, laparoscopic Surgical staple loading unit, non-cutting ([id number] Start: 10-19-2023 Clinical Notes 07-24-2020 to 10-23-2024 Telephone Encounter - Breonna Marie RN - 10/23/2024 3:00 PM EDTTelephone Encounter - Breonna Marie RN - 10/23/2024 3:00 PM EDTTelephone Encounter - Gemini Cárdenas LPN - 10/23/2024 1:11 PM EDT Note Date & Type Note Facility 10-23-2024 Telephone encounter Note Pt returned call and given Sunil Hernandezlogar message below. Pt states she will not see Dr. Blancas. Pt states she will find a different provider. [facility] 10-23-2024 Miscellaneous Notes Pt returned call and given Sunil Eduardo message below. Pt states she will not see Dr. Blancas. Pt states she will find a different provider. Message left for patient to call office back for udpate. Gemini Cárdenas LPN I would not be willing to take them back on as a patient. They will need to establish with someone else. I do not take my own patients so this would be up to Dr. Blancas and since she has not seen him in some time she needs to be scheduled with him Dinorah Eduardo APRN.BATCH UNLOADER Attempted to contact pt with no answer and phone goes directly to [facility]. Per [facility], pt has no PCP listed at this time and her last visit was July of 2023. In review of chart and looking at 09/11/24 phone encounter, pt stated the following to the nurse: Patient states there is no need for her to come in and that this is just a way for the clinic to make more money. Patient asking for PCP to be removed from her chart. Provider removed as requested. Unable to refill any medications at this time due to the above. Pt will need to re-establish care with someone if she returns the call. Since [facility] for the refill, called them and spoke with Griselda and let her know that pt no longer has a PCP here per her request so we cannot refill her medications at this time. Prescription Refill Information The patient has been identified by name and date of : Yes Caregiver verified no other encounters exist for this prescription request: Yes Caregiver confirmed with patient/requestor that no other refills are due, in the near future, with this provider at this time: Yes The last office visit in the department: 08-10-23 Does the patient have a future office visit with this provider/department: No Requested Prescriptions Pending Prescriptions Disp Refills sertraline (ZOLOFT) 100 mg tablet 180 tablet 1 Sig: Take 2 tablets by mouth once daily. Dee Knowles October 19, 2024 9:45 AM documented in this encounter [facility] 10-23-2024 Telephone encounter Note Message left for patient to call office back for udpate. Gemini Cárdenas LPN [facility] 10-23-2024 Telephone encounter Note I would not be willing to take them back on as a patient. They will need to establish with someone else. [facility] Work Phone: 10-20-2024 Telephone encounter Note I do not take my own patients so this would be up to Dr. Blancas and since she has not seen him in some time she needs to be scheduled with him Dinorah Eduardo APRN.ZOILA [facility] 10-20-2024 Telephone encounter Note Attempted to contact pt with no answer and phone goes directly to [facility]. Per [facility], pt has no PCP listed at this time and her last visit was July of 2023. In review of chart and looking at 09/11/24 phone encounter, pt stated the following to the nurse: Patient states there is no need for her to come in and that this is just a way for the clinic to make more money. Patient asking for PCP to be removed from her chart. Provider removed as requested. Unable to refill any medications at this time due to the above. Pt will need to re-establish care with someone if she returns the call. Since [facility] for the refill, called them and spoke with Griselda and let her know that pt no longer has a PCP here per her request so we cannot refill her medications at this time. [facility] 10-19-2024 Telephone encounter Note Prescription Refill Information The patient has been identified by name and date of : Yes Caregiver verified no other encounters exist for this prescription request: Yes Caregiver confirmed with patient/requestor that no other refills are due, in the near future, with this provider at this time: Yes The last office visit in the department: 08-10-23 Does the patient have a future office visit with this provider/department: No Requested Prescriptions Pending Prescriptions Disp Refills sertraline (ZOLOFT) 100 mg tablet 180 tablet 1 Sig: Take 2 tablets by mouth once daily. Dee Knowles October 19, 2024 9:45 AM [facility] 09-25-2024 Telephone encounter Note Reviewed. Dinorah Eduardo APRN.CNP [facility] 09-25-2024 Miscellaneous Notes Reviewed. Dinorah Eduardo APRN.CNP Telephone call placed to patient. Made aware of need for appointment. Patient doesn't understand why she needs to come in when the ER did such a throughout workup. Explained to patient what all is gone over in an ER follow up. Patient asking why the provider can't just order the referral needed. Again educated that the provider can't place any referrals without an ER follow up to go over ER visit. Patient states there is no need for her to come in and that this is just a way for the clinic to make more money. Patient asking for PCP to be removed from her chart. Provider removed as requested. Gemini Cárdenas LPN She need follow-up in office as she has not been here in over a year. Dinorah Eduardo APRN.ZOILA Patient has only been seen once at [facility] hospital on 07/31/2024 for back pain. Regardless she is overdue for her annual Medicare Wellness or follow up. Call placed to patient to schedule. Message left to call office back to schedule. ED summary placed in Dinorah Okeefe inbox for review. Gemini Cárdenas LPN Called patient to see about scheduling an appointment for an over due physical. Patient stated that they have been in and out of the hospital recently and would like Dinorah to look everything over before making an appointment to come in. Please call patient after Dinorah has looked at everything and advice patient what they should do. Patient has been at [facility] ER. Thank you Olga Conner documented in this encounter [facility] 09-25-2024 Telephone encounter Note Telephone call placed to patient. Made aware of need for appointment. Patient doesn't understand why she needs to come in when the ER did such a throughout workup. Explained to patient what all is gone over in an ER follow up. Patient asking why the provider can't just order the referral needed. Again educated that the provider can't place any referrals without an ER follow up to go over ER visit. Patient states there is no need for her to come in and that this is just a way for the clinic to make more money. Patient asking for PCP to be removed from her chart. Provider removed as requested. Gemini Cárdenas LPN [facility] 09-20-2024 Telephone encounter Note She need follow-up in office as she has not been here in over a year. Dinorah Eduardo APRN.BATCH UNLOADER [facility] 09-20-2024 Telephone encounter Note Patient has only been seen once at [facility] hospital on 07/31/2024 for back pain. Regardless she is overdue for her annual Medicare Wellness or follow up. Call placed to patient to schedule. Message left to call office back to schedule. ED summary placed in Dinorah Okeefe inbox for review. Gemini Cárdenas LPN [facility] 09-11-2024 Telephone encounter Note Called patient to see about scheduling an appointment for an over due physical. Patient stated that they have been in and out of the hospital recently and would like Dinorah to look everything over before making an appointment to come in. Please call patient after Dinorah has looked at everything and advice patient what they should do. Patient has been at [facility] ER. Thank you Olga Conner [facility] 07-31-2024 Radiology Diagnostic study note [facility] Imaging Services [address] [place] [address] Abdomen/Pelvis W IV Cont ONLY MR#: [id number] Acct: [id number] Name: SNOW SOLIS Rep #: [id number] : 1950 F 74 From: Trinity Murillo MD PCP: Care Physician,No Primary Status: REG ER Study:Abdomen/Pelvis W IV Cont ONLY Date of E xam: 07/31/24 Exam# [id number] Ordering Dr: Dixie Greene ADDENDUM by Dr. Mateusz Murillo MD on 07/31/24 at 1702 Additional small RIGHT lobe hepatic cyst also present, in addition to a punctatehypodensity in the inferior RIGHT lobe too small to characterize, presumed cyst or hemangioma in the absence of known malignancy. END OF ADDENDUM Reading Location: [facility] 07/31/24 1703 Date cc: ARIAN Mckinney; No Primary Care Physician ~* Signed PROCEDURE: ABDOMEN/PELVIS W IV CONT ONLY 07/31/2024 REASON FOR EXAM: ABDOMINAL PAIN, LOW BACK PAIN TECHNIQUE: CT abdomen and pelvis was performed with IV contrast. Multiplanar reformats were generated. PATIENT PREPARATION: Per protocol ORAL CONTRAST TYPE: None. CONTRAST: Isovue-300 VOLUME: 100 mL One or more dose reduction techniques were used (e.g., Automated exposure control, adjustment of the mA and/or kV according to patient size, use of iterative reconstruction technique. RADIATION DOSE SUMMARY: CTDlvol: 9.46+ 12.15+ 5.23 mGy DLP: 526.91 mGycm Note this represents a total of the CT lumbar spine and CT abdomen and pelvis. COMPARISON: None. FINDINGS: Lung bases: Mild atelectasis/scarring. 3 mm subpleural LEFT lower lobe nodule. Liver: Subcentimeter LEFT lobe hypodensity too small to characterize likely a cyst or hemangioma in the absence of known malignancy. Spleen: Mild splenomegaly, 14.7 cm coronal.. Gallbladder: Cholelithiasis. Pancreas: Segmental dilatation of the main pancreatic duct along the pancreatic head to 6 mm. Adrenals: Unremarkable. Kidneys: Unremarkable. Bowel: Diverticulosis. Appendectomy. Lymph nodes: Unremarkable. Vasculature: Atherosclerosis. Mild abdominal aortic ectasia 22.2 cm orthogonal to the long axis. Peritoneum: Unremarkable. Bladder: Underdistended and suboptimally evaluated, grossly unremarkable. Reproductive Organs: Unremarkable. Body Wall: Tiny fat containing umbilical hernia.. Bones: Suspect demineralization. Thoracolumbar scoliosis, otherwise the lumbar spine lumbar spine is better evaluated on separately dictated dedicated CT lumbar spine. CT/Abdomen/Pelvis W IV Cont ONLY IMPRESSION: 1. No acute findings. 2. Mild dilatation of the proximal main pancreatic duct without visible obstructing process. Consider outpatient MRI abdomen with and without contrast and with MRCP. Comparison with any outside imaging may also be helpful to establish stability. 3. 3 mm LEFT lower lobe nodule, statistically benign and requiring no specific follow-up in a low risk patient. Otherwise, recommend follow-up CT chest in one year per the Fleischner society recommendations for pulmonary nodule follow-up, presuming no history of malignancy or known immunosuppression. 4. Mild splenomegaly. 5. Additional description as above. Reading Location: [facility] CC: ARIAN Mckinney; No Primary Care Physician ~ E Commerce Director: Signed [facility] 07-31-2024 Radiology Diagnostic study note [facility] Imaging Services [address], [place] [address] Spine Lumbar without Contrast MR#: [id number] Acct: [id number] Name: SNOW SOLIS Rep #: [id number] : 1950 F 74 From: Trinity Murillo MD PCP: Care Physician,No Primary Status: REG ER Study:Spine Lumbar without Contrast Date of E xam: 07/31/24 Exam# [id number] Ordering Dr: Bianka Shaw DO PROCEDURE: SPINE LUMBAR WITHOUT CONTRAST 07/31/2024 REASON FOR EXAM: BACK PAIN R/O FRACTURE TECHNIQUE: CT lumbar spine was performed without IV contrast. Multiplanar reformats were generated. One or more dose reduction techniques were used (e.g., Automated exposure control, adjustment of the mA and/or kV according to patient size, use of iterative reconstruction technique COMPARISON: None. RADIATION DOSE SUMMARY: CTDlvol: 9.46+ 12.15+ 5.23 mGy DLP: 526.91 mGycm Note that this represents the sum of the CT lumbar spine and CT abdomen and pelvis. FINDINGS: No lumbar spinal fracture or acute malalignment identified. Vertebral body heights are preserved. Thoracolumbar dextroscoliosis. Suspect demineralization. Variable spinal canal stenosis up to at least mild atL2-L3. Variable foraminal stenoses up to at least mild/moderate on the RIGHT at L4-L5 related to prominent disc bulging/protrusion, probably contacting the exiting nerve root. These findings are suboptimally delineated by CT. Paraspinal soft tissues better evaluated on concurrent separately dictated CT abdomen and pelvis. Please refer to that report. CT/Spine Lumbar without Contrast IMPRESSION: 1. Demineralization without lumbar spinal fracture or acute malalignment identified. 2. Additional description as above. Reading Location: [id number] CC: Dr. Wallace Shaw, DO; No Primary Care Physician ~ E Commerce Director: Signed [facility] 05-11-2024 Telephone encounter Note The patient has been identified by name and date of : Yes, pharmacy Caregiver verified no other encounters exist for this prescription request: Yes Caregiver confirmed with patient/requestor that no other refills are due, in the near future, with this provider at this time: Yes The last office visit in the department: 08/10/2023 Does the patient have a future office visit with this provider/department: No no future appt scheduled, told pharmacy to have her call for an appt Requested Prescriptions Pending Prescriptions Disp Refills atorvastatin (LIPITOR) 40 mg tablet 90 tablet 2 Sig: Take 1 tablet by mouth daily at bedtime. For cholesterol. Kellie Castro LPN May 11, 2024 8:38 AM [facility] 05-11-2024 Miscellaneous Notes The patient has been identified by name and date of : Yes, pharmacy Caregiver verified no other encounters exist for this prescription request: Yes Caregiver confirmed with patient/requestor that no other refills are due, in the near future, with this provider at this time: Yes The last office visit in the department: 08/10/2023 Does the patient have a future office visit with this provider/department: No no future appt scheduled, told pharmacy to have her call for an appt Requested Prescriptions Pending Prescriptions Disp Refills atorvastatin (LIPITOR) 40 mg tablet 90 tablet 2 Sig: Take 1 tablet by mouth daily at bedtime. For cholesterol. Kellie Castro LPN May 11, 2024 8:38 AM documented in this encounter [facility] 03-06-2024 Telephone encounter Note Spoke with the pharmacy and they requested it early. They will request at a later date. Chana Armstrong LPN [facility] 03-06-2024 Miscellaneous Notes Spoke with the pharmacy and they requested it early. They will request at a later date. Chana Armstrong LPN Prescription Refill Information The patient has been identified by name and date of : Yes Caregiver verified no other encounters exist for this prescription request: Yes Caregiver confirmed with patient/requestor that no other refills are due, in the near future, with this provider at this time: Yes The last office visit in the department: 08-09-22 Does the patient have a future office visit with this provider/department: Yes Requested Prescriptions Pending Prescriptions Disp Refills atorvastatin (LIPITOR) 40 mg tablet 90 tablet 2 Sig: Take 1 tablet by mouth daily at bedtime. For cholesterol. Nilsa Fulton March 06, 2024 10:09 AM documented in this encounter [facility] 03-06-2024 Telephone encounter Note [facility] 03-06-2024 Telephone encounter Note Prescription Refill Information The patient has been identified by name and date of : Yes Caregiver verified no other encounters exist for this prescription request: Yes Caregiver confirmed with patient/requestor that no other refills are due, in the near future, with this provider at this time: Yes The last office visit in the department: 08-09-22 Does the patient have a future office visit with this provider/department: Yes Requested Prescriptions Pending Prescriptions Disp Refills atorvastatin (LIPITOR) 40 mg tablet 90 tablet 2 Sig: Take 1 tablet by mouth daily at bedtime. For cholesterol. Nilsa Fulton March 06, 2024 10:09 AM [facility] 02-24-2024 Telephone encounter Note TC to pt. Left a detailed message on a secure line informing Pt she had refills left on medication and need to call the pharmacy. Bernie Gillespie LPN [facility] 02-24-2024 Miscellaneous Notes TC to pt. Left a detailed message on a secure line informing Pt she had refills left on medication and need to call the pharmacy. Bernie Gillespie LPN Patient has been identified by name and date of : Yes Pharmacy phones for refill(s): Requested Prescriptions Pending Prescriptions Disp Refills atorvastatin (LIPITOR) 40 mg tablet 90 tablet 2 Sig: Take 1 tablet by mouth daily at bedtime. For cholesterol. Date of last office visit in primary care: 08/10/2023 Date of next office visit in primary care: Visit date not found Please advise. Thank you. Dinorah Solis. documented in this encounter [facility] 02-24-2024 Telephone encounter Note Patient has been identified by name and date of : Yes Pharmacy phones for refill(s): Requested Prescriptions Pending Prescriptions Disp Refills atorvastatin (LIPITOR) 40 mg tablet 90 tablet 2 Sig: Take 1 tablet by mouth daily at bedtime. For cholesterol. Date of last office visit in primary care: 08/10/2023 Date of next office visit in primary care: Visit date not found Please advise. Thank you. Dinorah Solis. [facility] 02-03-2024 Telephone encounter Note Prescription Refill Information The patient has been identified by name and date of : Yes Caregiver verified no other encounters exist for this prescription request: Yes Caregiver confirmed with patient/requestor that no other refills are due, in the near future, with this provider at this time: Yes The last office visit in the department: 08/10/23 Does the patient have a future office visit with this provider/department: Yes Requested Prescriptions Pending Prescriptions Disp Refills hydroCHLOROthiazide 25 mg tablet 90 tablet 2 Sig: Take 1 tablet by mouth once daily. Anastasiia Knowles February 03, 2024 9:28 AM [facility] 02-03-2024 Miscellaneous Notes Prescription Refill Information The patient has been identified by name and date of : Yes Caregiver verified no other encounters exist for this prescription request: Yes Caregiver confirmed with patient/requestor that no other refills are due, in the near future, with this provider at this time: Yes The last office visit in the department: 08/10/23 Does the patient have a future office visit with this provider/department: Yes Requested Prescriptions Pending Prescriptions Disp Refills hydroCHLOROthiazide 25 mg tablet 90 tablet 2 Sig: Take 1 tablet by mouth once daily. Anastasiia Knowles February 03, 2024 9:28 AM documented in this encounter [facility] 02-01-2024 Telephone encounter Note The patient has been identified by name and date of : Yes Caregiver verified no other encounters exist for this prescription request: Yes Caregiver confirmed with patient/requestor that no other refills are due, in the near future, with this provider at this time: Yes The last office visit in the department: 08/10/2023 Does the patient have a future office visit with this provider/department: No Visit date not found Left message on pt's voice mail that she is due for an appt - due this month Jan - & to call the office back to schedule. Requested Prescriptions Pending Prescriptions Disp Refills sertraline (ZOLOFT) 100 mg tablet 180 tablet 1 Sig: Take 2 tablets by mouth once daily. Miroslava Baumann LPN February 01, 2024 9:29 AM [facility] 02-01-2024 Miscellaneous Notes The patient has been identified by name and date of : Yes Caregiver verified no other encounters exist for this prescription request: Yes Caregiver confirmed with patient/requestor that no other refills are due, in the near future, with this provider at this time: Yes The last office visit in the department: 08/10/2023 Does the patient have a future office visit with this provider/department: No Visit date not found Left message on pt's voice mail that she is due for an appt - due this jan - & to call the office back to schedule. Requested Prescriptions Pending Prescriptions Disp Refills sertraline (ZOLOFT) 100 mg tablet 180 tablet 1 Sig: Take 2 tablets by mouth once daily. Miroslava Baumann LPN February 01, 2024 9:29 AM documented in this encounter [facility] 01-21-2024 Telephone encounter Note The patient has been identified by name and date of : Yes Caregiver verified no other encounters exist for this prescription request: Yes Caregiver confirmed with patient/requestor that no other refills are due, in the near future, with this provider at this time: Yes The last office visit in the department: 08/10/2023 Does the patient have a future office visit with this provider/department: No Visit date not found Requested Prescriptions Pending Prescriptions Disp Refills alendronate (FOSAMAX) 70 mg tablet 12 tablet 2 Sig: Take 1 tablet by mouth one time a week. Take with a full glass of water, on an empty stomach; do NOT lie down for 30minutes. Gaye Guevara RN January 21, 2024 1:41 PM [facility] 01-21-2024 Miscellaneous Notes The patient has been identified by name and date of : Yes Caregiver verified no other encounters exist for this prescription request: Yes Caregiver confirmed with patient/requestor that no other refills are due, in the near future, with this provider at this time: Yes The last office visit in the department: 08/10/2023 Does the patient have a future office visit with this provider/department: No Visit date not found Requested Prescriptions Pending Prescriptions Disp Refills alendronate (FOSAMAX) 70 mg tablet 12 tablet 2 Sig: Take 1 tablet by mouth one time a week. Take with a full glass of water, on an empty stomach; do NOT lie down for 30minutes. Gaye Guevara RN January 21, 2024 1:41 PM documented in this encounter [facility] 12-29-2023 Note Patient Outreach (IN [facility]) WILLSNOW J ([id number]) 1950 F Date Time Provider Department 12/29/23 PODLOGAR, DINORAH ROBINS During your visit today, we recorded the following information about you: Allergies As of Date: 12/29/2023 Noted Allergy Reaction BEES 04/10/2015 12 - Shortness of Breath LACTOSE INTOLERANCE (LACTASE) 04/10/2015 8 - GI Upset LATEX 04/10/2015 2 - Rash Date Reviewed: 08/10/2023 Reviewed by: Gemini Cárdenas LPN - Fully Assessed Visit Diagnosis:Encounter for screening mammogram for breast cancer [Z12.31] Order(s):[facility] S[facility] [[id number]] Order #: [id number] FUTURE Prescriptions as of 01/03/2024 - sertraline (ZOLOFT) 100 mg tablet Take 2 tablets by mouth once daily. - atorvastatin (LIPITOR) 40 mg tablet Take 1 tablet by mouth daily at bedtime. For cholesterol. - hydroCHLOROthiazide 25 mg tablet Take 1 tablet by mouth once daily. - alendronate (FOSAMAX) 70 mg tablet Take 1 tablet by mouth one time a week. Take with a full glass of water, on an empty stomach; do NOT lie down for 30minutes. - verapamil SR (CALAN SR) 180 mg CR tablet Take 1 tablet by mouth daily at bedtime. - losartan (COZAAR) 100 mg tablet (Discontinued) Take 1 tablet by mouth once daily. - Cholecalciferol, Vitamin D3, 25 mcg (1,000 unit) cap Take 2 capsules by mouth once daily. - Miscellaneous Medical Supply (BLOOD PRESSURE CUFF) 1 Each once daily. Take BP daily in morning - Cane 1 Device as needed. - aspirin, enteric coated (ASPIRIN, ENTERIC COATED) 81 mg EC tablet Take 1 tablet by mouth once daily. Problem List As Of Date 12/29/2023 Noted Resolved HTN (hypertension) [I10] 04/10/2015 Mixed hyperlipidemia [E78.2] 04/10/2015 Major depression, recurrent, chronic (HCC) [F33*04/10/2015 Abnormal mammogram [R92.8] 05/27/2015 Secondary polycythemia [D75.1] 11/20/2015 Tobacco use disorder [F17.200] 11/20/2015 Osteoporosis [M81.0] 02/22/2016 Encounter Status:Closed by RYAN BANUELOS on 01/03/24 [facility] 11-03-2023 Telephone encounter Note Prescription Refill Information The patient has been identified by name and date of : Yes Caregiver verified no other encounters exist for this prescription request: Yes Caregiver confirmed with patient/requestor that no other refills are due, in the near future, with this provider at this time: Yes The last office visit in the department: 05/11/23 Does the patient have a future office visit with this provider/department: No Requested Prescriptions Pending Prescriptions Disp Refills sertraline (ZOLOFT) 100 mg tablet 180 tablet 1 Sig: Take 2 tablets by mouth once daily. Carola Knowles November 03, 2023 9:59 AM [facility] 11-03-2023 Miscellaneous Notes Prescription Refill Information The patient has been identified by name and date of : Yes Caregiver verified no other encounters exist for this prescription request: Yes Caregiver confirmed with patient/requestor that no other refills are due, in the near future, with this provider at this time: Yes The last office visit in the department: 05/11/23 Does the patient have a future office visit with this provider/department: No Requested Prescriptions Pending Prescriptions Disp Refills sertraline (ZOLOFT) 100 mg tablet 180 tablet 1 Sig: Take 2 tablets by mouth once daily. Carola Knowles November 03, 2023 9:59 AM documented in this encounter [facility] 09-09-2023 History of Present illness Narrative 3rd call attempt, left vm, closing encounter 2nd attempt: LVM for patient to schedule colonoscopy consult COLONOSCOPY PATIENT OUTREACH Action/FYI Colonoscopy Recall Patient identified by Name and : Yes. OUTREACH OUTCOME ACTION: Consult- Telephone Call- Pt is overdue for screening colonoscopy. Pt needs consult due to medical history and/or medications. Please call patient and schedule appointment with General Surgery Provider. Rachell Staples RN documented in this encounter [facility] 08-16-2023 Telephone encounter Note Detailed VM left on pt's identified voicemail of information below. Chana Armstrong LPN [facility] 08-16-2023 Miscellaneous Notes Detailed VM left on pt's identified voicemail of information below. Chana Armstrong LPN Message left for patient to call office back for update. Gemini Cárdenas LPN Hemoglobin is elevated which it has been in the past. This is likely due to smoking. We can recheck at her next office visit. Small elevation I glucose. Recommend lower carbohydrate diet and aim for at least 150 minutes of exercise per week. The rest of her blood work was normal. Dinorah Eduardo APRN.CNP documented in this encounter [facility] 08-11-2023 Telephone encounter Note Message left for patient to call office back for update. Gemini Cárdenas LPN [facility] 08-11-2023 Telephone encounter Note Hemoglobin is elevated which it has been in the past. This is likely due to smoking. We can recheck at her next office visit. Small elevation I glucose. Recommend lower carbohydrate diet and aim for at least 150 minutes of exercise per week. The rest of her blood work was normal. Dinorah Eduardo APRN.BATCH UNLOADER [facility] 08-10-2023 History of Present illness Narrative 08/10/2023 Patient presents with: Recheck SUBJECTIVE: This is a 73 year old that is here today for Above Complaints. Since last office visit has been in good health without ER Visits or hospil HTN: Patient is compliant with meds Yes Monitors bp at home: Yes. Denies side effects: No. Chest pain: No. Dyspnea: No. Edema: No. Palpitations: No. Syncope: No. Headache: No. Dizziness: No. HYPERLIPIDEMIA: Patient is taking medications: Yes. Patient is watching diet: somewhat . Patient denies myalgias: Yes. Patient denies gi upset: Yes Stays active with walking Depression: Reports has a hx of chronic major depression. Taking Zoloft as prescribed without side effects. Hard time falling asleep. Watches TV until late. Feels fatigued a lot. Reports she has went to counseling the past and didn't help much. Does not desire to return to counseling. Denies SI or HI PHQ9: 14 MIAN: 5 ONSET: a few years LOCATION: low back DURATION: constant CHARACTERISTICS: dull AGGRAVATING FEATURES: anything she does cause pain ALLEVIATING FEATURES: has tried heat and lidocaine patches RADIATION: across back Denies past injury/surgery, saddle anaesthesia, lower extremity numbness, tingling, weakness, urinary/stool incontinence or inability. Reports had musocusy diarrhea a few months back and lost 30# marcelo to regain about half of it. Reports she found her triggers to be coffee, tomatoes, and pop. Has hx of IBS so struggles with diarrhea. Admits to some abdominal cramping at times. Denies nausea, vomiting, hematochezia or melana Smokes 1.5 packs of cigarettes a day. No desire to quit at this time. Is not up to date on lung cancer screening Osteoporosis: taking Fosamax as prescribed without side effects PAST MEDICAL HISTORY Diagnosis Date HTN (hypertension) 04/10/2015 Irritable bowel syndrome (IBS) 1950s Major depression, recurrent, chronic (HCC) 04/10/2015 Mixed hyperlipidemia 04/10/2015 Osteoarthritis cervical spine 2012 Osteoporosis 02/22/2016 Overdose of antidepressant 2006 [facility] Sciatica, right side 2012 ALLERGIES Bees, Lactose Intolerance [Lactase], and Latex MEDICATIONS Current Outpatient Medications Medication Sig atorvastatin (LIPITOR) 40 mg tablet Take 1 tablet by mouth daily at bedtime. For cholesterol. hydroCHLOROthiazide 25 mg tablet Take 1 tablet by mouth once daily. sertraline (ZOLOFT) 100 mg tablet Take 2 tablets by mouth once daily. alendronate (FOSAMAX) 70 mg tablet Take 1 tablet by mouth one time a week. Take with a full glass of water, on an empty stomach; do NOT lie down for 30minutes. Cholecalciferol, Vitamin D3, 25 mcg (1,000 unit) cap Take 2 capsules by mouth once daily. verapamil SR (CALAN SR) 180 mg CR tablet Take 1 tablet by mouth daily at bedtime. (Patient not taking: Reported on 08/10/2023) Miscellaneous Medical Supply (BLOOD PRESSURE CUFF) 1 Each once daily. Take BP daily in morning Cane 1 Device as needed. aspirin, enteric coated (ASPIRIN, ENTERIC COATED) 81 mg EC tablet Take 1 tablet by mouth once daily. (Patient not taking: Reported on 03/03/2021 ) No current facility-administered medications for this visit. Medications and allergies reviewed by this provider. SOCIAL HISTORY Social History Tobacco Use Smoking status: Every Day Packs/day: 1.50 Years: 39.00 Additional pack years: 0.00 Total pack years: 58.50 Types: Cigarettes Start date: 1968 Smokeless tobacco: Never Substance Use Topics Alcohol use: No Drug use: No REVIEW OF SYSTEMS All other reviewed and negative other than HPI. OBJECTIVE: BP (P) 128/82 Pulse (P) 66 Resp (P) 16 Wt (P) 53.2 kg (117 lb 3.2 oz) SpO2 (P) 97% BMI (P) 19.50 kg/m . Vital signs reviewed by this provider. APPEARANCE Well appearing, alert, in no acute distress, well-hydrated, well nourished. EYES PERRLA, conjunctiva and sclera normal. EARS External ears normal, canals clear NECK Supple, no adenopathy; thyroid symmetric, normal size HEART RRR with normal S1 and S2, no murmurs, no gallops, no JVD appreciated LUNG clear to auscultation BACK: negative SLR test, limited ROM due to pain. No obvious deformity or or TTP EXTREMITIES Extremities normal, No deformities, No skin discoloration, and No edema Neuro: Reflexes symmetrical, Normal gait, No involuntary motions., and negative findings: muscle tone normal, muscle strength normal SKIN Skin color, texture, turgor normal, no suspicious rashes or lesions to exposed skin DTaP,Tdap,Td Vaccine(1 - Tdap) Never done Lung Cancer Screening Never done Shingrix Vaccine(1 of 2) Never done RSV Vaccine(1 - 1-dose 60+ series) Never done Mammogram Screening due on 04/16/2016 Colorectal Cancer Screening due on 12/11/2020 BP Controlled (<130/80) due on 03/03/2022 Serum Creatinine due on 09/08/2022 Covid-19 Vaccine( season) due on 12/25/2022 Advance Directive Discussion Never done Influenza Vaccine(Season Ended) due on 12/26/2023 Annual PCP Team Chronic Disease Visit due on 08/09/2024 Diabetes Screening due on 09/08/2024 Lipid Screening due on 09/08/2026 Bone Density Screening Completed Hepatitis C Screening Completed Pneumococcal Vaccine: 65+ Completed ASSESSMENT/PLAN: 1. Essential hypertension - ICD9: 401.9, ICD10: I10 (primary diagnosis) - Controlled - Continue current medications - Recommend home blood pressure monitoring, to bring results to next visit - Encouraged sodium restriction, DASH or Mediterranean diet - Recommend regular aerobic exercise - Smoking cessation encouraged; discussed risks to health and quitting strategies. Patient is not ready to quit - Follow up in 6 months for hypertension visit - HYDROCHLOROTHIAZIDE 25 MG TABLET 2. Mixed hyperlipidemia - ICD9: 272.2, ICD10: E78.2 - Control undetermined, due for labs - Continue current medications - Counseled on healthy diet and regular exercise - Follow up in 6 months, sooner should any other issues arise. - ATORVASTATIN 40 MG TABLET 3. Osteoporosis - ICD9: 733.00, ICD10: M81.0 - continue tx with alendronate (Fosamax) - Reviewed the need for Calcium and Vitamin D supplements and weight bearing exercise as tolerated - ALENDRONATE 70 MG TABLET 4. Major depression, recurrent, chronic (HCC) - ICD9: 296.30, ICD10: F33.9 - discussed medication change or add on- declines at this time - offered referral for counseling- declines - continue current medications and follow-up as needed 5. Weight loss - ICD9: 783.21, ICD10: R63.4 - discussed concerns regarding weight loss- recommend she get her mammogram and other cancer screening as ordered - has labs ordered as well - offered chest xray today -declines - patient reports she wants to check with insurance for coverage of testing - encouraged her to complete. Can also check with financial services intern if needed - CONSULT TO GENERAL SURGERY - CONSULT LUNG CANCER SCREENING CLINIC 6. Change in stool - ICD9: 792.1, ICD10: R19.5 - concern with her weight loss and stool changes - CONSULT TO GENERAL SURGERY 7. Tobacco use disorder - ICD9: 305.1, ICD10: F17.200 - Cessation encouraged. - Physiologic and physical aspects of tobacco addiction as well as strategies for quitting were discussed. - Counseling was given focusing on the harmful effects of this addiction especially given the patient's medical condition(s) which will be worsened because of the chemicals in tobacco. - CONSULT LUNG CANCER SCREENING CLINIC 8. Fatigue, unspecified type - ICD9: 780.79, ICD10: R53.83 - THYROID STIMULATING HORMONE 9. Stage 3a chronic kidney disease (HCC) - ICD9: 585.3, ICD10: N18.31 - Counseled on avoiding NSAIDs, adequate hydration - Counseled on low sodium diet - labs today and follow-up in 6 months 10. Lumbar back pain - ICD9: 724.2, ICD10: M54.50 - chronic - no red flag symptoms or exam findings - red flag symptoms discussed, verbalizes understanding - offered PT, referral to pain management and xray - declines - recommend OTC extended release tylenol as directed on packaging - may use heat for 15 minutes at a time - follow-up as needed Dinorah Eduardo APRN.ZOILA Prescription instructions reviewed with patient as applicable. Patient advised if symptoms do not improve or if symptoms worsen sooner, to contact their primary care physician. Potential red flag symptoms discussed with the patient. Reviewed appropriate action plan to take if red flag symptoms occur. Patient agreeable to treatment plan. Medical Decision Making: Problems: Moderate: New problem with uncertain prognosis and 2+ stable chronic illnesses Data: Unique test(s) ordered: 3+ Risk: Moderate: Drug management and Moderate risk from testing/treatment Medical Decision Making Level: 4 - Moderate documented in this encounter [facility] 07-30-2023 Evaluation note Diagnosis Stage 3a chronic kidney disease (HCC) Mixed hyperlipidemia documented in this encounter [facility]03-12-2024 Miscellaneous Notes* Telephone Encounter - Monet Frazier RN - 07/06/2023 11:54 AM EDT Message left for patient to call PCP office to schedule annual wellness exam. Pt last visit was 07/20/2022. Pt is due. Pt's pharmacy is requesting refill of medication as pended. Asking if provider would like to place short-term order until patient makes appt with provider? Pended for review. Thank you. Pharmacy phones for refill(s): Requested Prescriptions Pending Prescriptions Disp Refills hydroCHLOROthiazide 25 mg tablet 30 tablet 1 Sig: Take 1 tablet by mouth once daily. Date of last office visit in primary care: 07/20/2022 Date of next office visit in primary care: Visit date not found Monet Frazier RN. [facility] Miscellaneous Notes* Telephone Encounter - Breonna Marie RN - 09/18/2022 2:11 PM EDT Patient has been identified by name and date of : Yes, Provider Podlogar Date 09-18-22 Time 3:12 pm Patient phones for refill(s): Requested Prescriptions Pending Prescriptions Disp Refills hydroCHLOROthiazide 25 mg tablet 30 tablet 5 Sig: Take 1 tablet by mouth once daily. Date of last office visit with pcp: 07-20-22. Next appt: none Last 2 Encounter Wt Readings: Date: Wt: 07/20/2022 59.4 kg (131 lb) 09/08/2021 61.6 kg (135 lb 12.8 oz) Previous labs/tests for medication: Blood Pressure: BUN (mg/dL) Date Value 09/08/2021 12 09/04/2020 17 Sodium (mmol/L) Date Value 09/08/2021 139 09/04/2020 141 Last 1 Encounter BP Readings: Date: BP: 07/20/2022 118/86 Please advise. Thank you. Breonna Marie RN [facility] History of Present illness Narrative* Kareen Gilbert MA - 08/18/2022 9:02 AM EDT POPULATION HEALTH NAVIGATION OUTREACH Action/FYI LVM NO MYCHART ANNUAL MEDICARE WELLNESS MAMMOGRAM due on 04/16/2016 COLORECTAL CANCER SCREENING due on 12/11/2020 COLOGUARD ORDERED BP CONTROLLED (<130/80) due on 03/03/2022 ADVANCE DIRECTIVE DISCUSSION Never done MYCHART ACTIVATION Patient Identified by Name and : NO Outreach Outcome/Action Unable to reach patient: Left message Did you use a PCP flex slot to schedule this appointment? N/A Reason for Outreach Care Gap or Scheduling/Wellness visits Payer: Payor: MEDICARE / Plan: MEDICARE A AND B / Product Type: Medicare / Care Gap Reviewed:: Annual Wellness visit Breast Cancer screening Controlling Blood Pressure Colorectal Cancer Screening Reminder: Reminder note to check Health Maintenance for items below Health Maintenance items due: DTAP,TDAP,TD(1 - Tdap) Never done SHINGRIX VACCINE(1 of 2) Never done MAMMOGRAM due on 04/16/2016 COLORECTAL CANCER SCREENING due on 12/11/2020 BP CONTROLLED (<130/80) due on 03/03/2022 ADVANCE DIRECTIVE DISCUSSION Never done Navigation Signature: Kareen Gilbert MA August 18, 2022 9:02 AM documented in this [facility] Instructions* Patient Instructions* Dinorah Eduardo APRN.CNP - 07/20/2022 11:02 AM EDT Follow-up for appointment for back pain documented [facility] this encounterK[facility] Nurse Note* Gemini Cárdenas LPN - 07/20/2022 10:30 AM EDT Orthostatic vitals: Lying BP 134/83 P 70 Standing BP 117/83 P 86 Gemini Cárdenas LPN documented in this encounterK[facility] History of Present illness Narrative* Dinorah Eduardo APRN.CNP - 07/20/2022 10:07 AM EDT 07/20/2022 Patient presents with: Recheck SUBJECTIVE: This is a 72 year old that is here today for Above Complaints. Since last office visit has been in good health without ER HTN: Patient is compliant with meds Yes Monitors bp at home: Yes. 120/85 Denies side effects: Yes. Chest pain: Yes. 2 incidents of sharp pain that came and went Dyspnea: No. Edema: No. Palpitations: No. Syncope: No. Headache: No. Dizziness: Yes- feels off balance- occurs about once a day and lasts about one hour. Denies visual changes, syncope, tinnitus, slurred speech, facial drooping, confusion, falls, extremity numbness, tingling or weakness HYPERLIPIDEMIA: Patient is taking medications: Yes. Patient is watching diet: Yes. Patient denies myalgias: Yes. Patient denies gi upset: Yes Smoking: continues to smoke with no desire to quit Reports she has had two incidents to sharp chest pain which lasted seconds. Pain located mid chest.Non-exertional. No accompanying radiation, diaphoresis, jaw/back pain, SOB, dyspnea, palpitations, nausea or vomiting Feels like she is more depressed than she was. Not attending counseling. Denies SI, HI or insomnia Taking fosamax as prescribed without side effect Walks half mile a day. BP w/Orthostatic Vitals Date and Time Orthostatic BP Orthostatic Pulse BP Pulse BP Position BP Site BP Cuff Size 07/20/22 1035 117/83 86 -- -- Standing Right Arm -- 07/20/22 1030 134/83 70 -- -- Supine Right Arm -- 07/20/22 1002 -- -- 118/86 80 -- -- -- Peak Flow Date and Time PF Resp 07/20/22 1002 -- 18 PAST MEDICAL HISTORY Diagnosis Date HTN (hypertension) 04/10/2015 Irritable bowel syndrome (IBS) 1950s Major depression, recurrent, chronic (HCC) 04/10/2015 Mixed hyperlipidemia 04/10/2015 Osteoarthritis cervical spine 2012 Osteoporosis 02/22/2016 Overdose of antidepressant 2005 [facility] Sciatica, right side 2012 ALLERGIES Bees, Lactose Intolerance [Lactase], and Latex MEDICATIONS Current Outpatient Medications Medication Sig sertraline (ZOLOFT) 50 mg tablet Take 1 tablet by mouth once daily. atorvastatin (LIPITOR) 40 mg tablet Take 1 tablet by mouth daily at bedtime. For cholesterol. alendronate (FOSAMAX) 70 mg tablet Take 1 tablet by mouth one time a week. Take with a full glass of water, on an empty stomach; do NOT lie down for 30minutes. verapamil ER 180 mg 24 hr capsule Take 1 capsule by mouth daily at bedtime. sertraline (ZOLOFT) 100 mg tablet Take one tablet daily along with 50 mg tablet hydroCHLOROthiazide (HYDRODIURIL, ESIDRIX) 25 mg tablet Take 1 tablet by mouth once daily. Cholecalciferol, Vitamin D3, 25 mcg (1,000 unit) cap Take 2 capsules by mouth once daily. lidocaine (LIDODERM) 5 % Apply 1 Patch as directed every 24 hours. Remove old patch prior to placing new patch. Location: back (Patient not taking: Reported on 07/20/2022) Miscellaneous Medical Supply (BLOOD PRESSURE CUFF) 1 Each once daily. Take BP daily in morning Cane 1 Device as needed. aspirin, enteric coated (ASPIRIN, ENTERIC COATED) 81 mg EC tablet Take 1 tablet by mouth once daily. (Patient not taking: Reported on 03/03/2021 ) No current facility-administered medications for this visit. Medications and allergies reviewed by this provider. SOCIAL HISTORY Social History Tobacco Use Smoking status: Every Day Packs/day: 1.50 Years: 39.00 Pack years: 58.50 Types: Cigarettes Start date: 1968 Smokeless tobacco: Never Substance Use Topics Alcohol use: No Drug use: No REVIEW OF SYSTEMS All other reviewed and negative other than HPI. OBJECTIVE: BP 118/86 Pulse 80 Resp 18 Wt 59.4 kg (131 lb) SpO2 94% BMI 21.80 kg/m . Vital signs reviewed by this provider. APPEARANCE Well appearing, alert, in no acute distress, well-hydrated, well nourished. EYES PERRLA, conjunctiva and sclera normal. EARS External ears normal, canals clear NECK Supple, no adenopathy; thyroid symmetric, normal size, no bruits HEART RRR with normal S1 and S2, no murmurs, no gallops, no JVD appreciated LUNG clear to auscultation. No wheezes, rhonchi or rales EXTREMITIES Extremities normal, No deformities, No skin discoloration, and No edema NEURO Awake, alert and oriented x 3, Cranial nerves II-XII grossly intact, Reflexes symmetrical, Normal gait, No involuntary motions., and negative findings: speech normal, mental status intact, Romberg negative, muscle tone normal, muscle strength normal, rapid alternating movements normal, fingerto nose normal, reflexes normal and symmetric, plantar response downgoing bilaterally SKIN Skin color, texture, turgor normal, no suspicious rashes or lesions to exposed skin Component Latest Ref Rng & Units 09/08/2021 WBC 3.70 - 11.00 k/uL 4.83 RBC 3.90 - 5.20 m/uL 5.58 (H) Hemoglobin 11.5 - 15.5 g/dL 16.4 (H) Hematocrit 36.0 - 46.0 % 50.4 (H) MCV 80.0 - 100.0 fL 90.3 MCH 26.0 - 34.0 pg 29.4 MCHC 30.5 - 36.0 g/dL 32.5 RDW-CV 11.5 - 15.0 % 13.8 Platelet Count 150 - 400 k/uL 175 MPV 9.0 - 12.7 fL 10.8 Absolute nRBC <0.01 k/uL <0.01 Glucose 74 - 99 mg/dL 99 BUN 7 - 21 mg/dL 12 Creatinine 0.58 - 0.96 mg/dL 1.00 (H) Sodium 136 - 144 mmol/L 139 Potassium 3.7 - 5.1 mmol/L 3.8 Chloride 97 - 105 mmol/L 99 CO2 22 - 30 mmol/L 28 Anion Gap 9 - 18 mmol/L 12 Calcium 8.5 - 10.2 mg/dL 10.0 eGFR >=60 mL/min/1.73m 60 Cholesterol, Total <200 mg/dL 146 Triglyceride <150 mg/dL 116 HDL Cholesterol >39 mg/dL 45 Non HDL Cholesterol <130 mg/dL 101 Fasting Time hrs 12 VLDL Cholesterol <30 mg/dL 23 TC:HDL Ratio <5.10 3.24 LDL Cholesterol <100 mg/dL 78 LDL:HDL Ratio <2.54 1.73 Vitamin D 25 Hydroxy 31.0 - 80.0 ng/mL 39.0 DTAP,TDAP,TD(1 - Tdap) Never done SHINGRIX VACCINE(1 of 2) Never done MAMMOGRAM due on 04/16/2016 COLORECTAL CANCER SCREENING due on 12/11/2020 INFLUENZA(1) due on 12/25/2021 BP CONTROLLED (<130/80) due on 03/03/2022 ADVANCE DIRECTIVE DISCUSSION Never done LUNG CANCER SCREENING due on 07/21/2023 SERUM CREATININE due on 09/08/2022 ANNUAL PCP TEAM CHRONIC DISEASE VISIT due on 07/21/2023 DIABETES SCREEN due on 09/08/2024 LIPID SCREEN due on 09/08/2026 BONE DENSITY Completed HEPATITIS C SCREENING Completed COVID-19 VACCINE Completed PNEUMOCOCCAL: 65+ Completed ASSESSMENT/PLAN: 1. Essential (primary) hypertension - ICD9: 401.9, ICD10: I10 (primary diagnosis) - good control - Continue current medication(s) - Encouraged dietary sodium restriction/DASH diet - Recommended regular aerobic exercise. - Recommend home blood pressure monitoring, to bring results in on next visit - Recheck in 6 months, sooner should new symptoms or problems arise. - Goal of BP <140/90 - Patient counselled on smoking cessation. - Recommend home or pharmacy blood pressure monitoring - Recommended no refined sugar, low refined starch, healthy oil intake (olive oil), healthy protein(fish) along the lines of the Mediterranean diet. 2. Mixed hyperlipidemia - ICD9: 272.2, ICD10: E78.2 - to be determined upon return of lab results - Continue current medication. - Encouraged following a low fat, low cholesterol diet. - Check fasting lipid panel - Follow up in 6 months. - Encouraged following a low carbohydrate, healthy oil intake diet. - COMP METABOLIC PANEL - LIPID PANEL BASIC 4. Major depression, recurrent, chronic (HCC) - ICD9: 296.30, ICD10: F33.9 - uncontrolled - increase Zoloft - counseling encouraged - SERTRALINE 100 MG TABLET - follow-up if symptoms fail to improve 5. Screening for colon cancer - ICD9: V76.51, ICD10: Z12.11 - COLOGUARD 6. Encounter for immunization - ICD9: V03.89, ICD10: Z23 - [employer] COVID-19 BIVALENT BOOSTER VACCINE, AGE 12+ YR 7. Chest wall pain - ICD9: 786.52, ICD10: R07.89 - no red flag symptoms or exam findings - red flag symptoms discussed, verbalizes understanding Chest pain of unclear etiology, patient with significant risk factor(s) of Hypertension, Hyperlipidemia, and smoking - Electrocardiogram: An ECG today showed normal sinus rhythm at 73, BPM, possible left atrial enlargement, left axis deviation, FL interval 174 ms, right bundle branch block, QRS duration 114 ms, normal ST-T, QT 420 ms - ECG COMPLETE - discussed ECHO and stress test given hx of HTN, hyperlipidemia and smoking- patient declines - follow-up as needed to ER with red flag symptoms 8. Stage 3a chronic kidney disease (HCC) - ICD9: 585.3, ICD10: N18.31 - stay well hydrated with water - avoid NSAID products - COMP METABOLIC PANEL 9. Dizziness - ICD9: 780.4, ICD10: R42 - labs as listed - no red flag symptoms or exam findings - red flag symptoms discussed - stay well hydrated - wait a few a minute when rising from sitting or laying position before ambulating - offered trial of Antivert, declines 10. Tobacco use disorder - ICD9: 305.1, ICD10: F17.200 - Cessation encouraged. - Physiologic and physical aspects of tobacco addiction as well as strategies for quitting were discussed. - Counseling was given focusing on the harmful effects of this addiction especially given the patient's medical condition(s) which will be worsened because of the chemicals in tobacco. - discussed lung cancer screening, patient declines 11. Osteoporosis, unspecified osteoporosis type, unspecified pathological fracture presence - ICD9:733.00, ICD10: M81.0 - continue tx with alendronate (Fosamax) - Reviewed the need for Calcium and Vitamin D supplements and weight bearing exercise as tolerated 12. Vitamin D deficiency - ICD9: 268.9, ICD10: E55.9 - VITAMIN D 25 HYDROXY Dinorah Eduardo APRN.CNP Prescription instructions reviewed with patient as applicable. Patient advised if symptoms do not improve or if symptoms worsen sooner, to contact their primary care physician. Potential red flag symptoms discussed with the patient. Reviewed appropriate action plan to take if red flag symptoms occur. Patient agreeable to treatment plan. I spent a total of 40 minutes on the date of the service which included preparing to see the patient, syma-[id number] patient care, completing clinical documentation, obtaining and/or reviewing separately obtained history, performing a medically appropriate examination, counseling and educating the pat ient/family/caregiver, and ordering medications, tests, or procedures. documented in this encounterK[facility]-20-2023 Miscellaneous Notes* Telephone Encounter - Breonna Marie RN - 07/13/2022 1:25 PM EDT Patient has been identified by name and date of : Yes, Provider Podlogar Date 07-13-22 Time 1:26 pm Pharmacy phones for refill(s): Requested Prescriptions Pending Prescriptions Disp Refills sertraline (ZOLOFT) 50 mg tablet 90 tablet 0 Sig: Take 1 tablet by mouth once daily. atorvastatin (LIPITOR) 40 mg tablet 90 tablet 3 Sig: Take 1 tablet by mouth daily at bedtime. For cholesterol. Date of last office visit with pcp: 09-08-21. Next appt: none Last 2 Encounter Wt Readings: Date: Wt: 09/08/2021 61.6 kg (135 lb 12.8 oz) 03/03/2021 62.4 kg (137 lb 9.6 oz) Previous labs/tests for medication: Cholesterol: HDL Cholesterol (mg/dL) Date Value 09/08/2021 45 12/01/2019 34 LDL Cholesterol (mg/dL) Date Value 09/08/2021 78 12/01/2019 54 ALT (U/L) Date Value 07/24/2020 16 Non HDL Cholesterol (mg/dL) Date Value 09/08/2021 101 12/01/2019 84 Blood Pressure: BUN (mg/dL) Date Value 09/08/2021 12 09/04/2020 17 Sodium (mmol/L) Date Value 09/08/2021 139 09/04/2020 141 Last 1 Encounter BP Readings: Date: BP: 09/08/2021 126/82 Liver Function: ALT (U/L) Date Value 07/24/2020 16 AST (U/L) Date Value 07/24/2020 22 Please advise. Thank you. Breonna Marie RN documented in this encounterK[facility]03-17-2023 Miscellaneous Notes* Telephone Encounter - Dinorah Eduardo APRN.CNP - 07/10/2022 2:36 PM EDT Patient is due for follow-up. Please assist in scheduling. Dinorha Eduardo APRN.CNP * Telephone Encounter - Meme Stephenson Pss - 07/10/2022 1:13 PM EDT Patient has been identified by name and date of : Yes Last office visit in this department: 09/08/2021 RX INSTRUCTIONS: Pharmacy initiated this request. No need to notify patient. Patient phones requesting refills as follows: Requested Prescriptions Pending Prescriptions Disp Refills alendronate (FOSAMAX) 70 mg tablet 12 tablet 3 Sig: Take 1 tablet by mouth one time a week. Take with a full glass of water, on an empty stomach; do NOT lie down for 30minutes. sertraline (ZOLOFT) 50 mg tablet 90 tablet 1 Sig: Take 1 tablet by mouth once daily. verapamil ER 180 mg 24 hr capsule 90 capsule 3 Sig: Take 1 capsule by mouth daily at bedtime. sertraline (ZOLOFT) 100 mg tablet 90 tablet 0 Sig: Take one tablet daily along with 50 mg tablet LYLE-09/08/21 Labs-09/08/21 NOV-none Please review and advise. Meme Knowles documented in this encounterK[facility]11-28-2022 Miscellaneous Notes* Telephone Encounter - Miroslava Ogden LPN - 03/23/2022 1:37 PM EST LYLE 09/08/21 NOV no upcoming appt noted * Telephone Encounter - Nilsa Fulton - 03/23/2022 11:17 AM EST Patient has been identified by name and date of : Yes Requested Prescriptions Pending Prescriptions Disp Refills sertraline (ZOLOFT) 100 mg tablet 90 tablet 0 Sig: Take one tablet daily along with 50 mg tablet sertraline (ZOLOFT) 50 mg tablet 90 tablet 1 Sig: Take 1 tablet by mouth once daily. Patient is out of the medication. RX INSTRUCTIONS: Patient aware RX will be sent to pharmacy. No need to notify patient. Nilsa Fulton documented in this encounterK[facility]09-12-2022 Miscellaneous Notes* Telephone Encounter - Bernie Gillespie LPN - 01/05/2022 2:57 PM EDT Patient phones requesting refills as follows: Requested Prescriptions Pending Prescriptions Disp Refills hydroCHLOROthiazide (HYDRODIURIL, ESIDRIX) 25 mg tablet 30 tablet 5 Sig: Take 1 tablet by mouth once daily. Refused Prescriptions Disp Refills sertraline (ZOLOFT) 100 mg tablet 90 tablet 0 Sig: Take one tablet daily along with 50 mg tablet LYLE-12/26/21 Labs-12/15/21 NOV-03/27/22 med filled 08/15/21 Please review and advise. Bernie Gillespie LPN * Telephone Encounter - Nilsa Fulton - 01/05/2022 2:23 PM EDT Patient has been identified by name and date of : Yes Requested Prescriptions Pending Prescriptions Disp Refills sertraline (ZOLOFT) 100 mg tablet 90 tablet 0 Sig: Take one tablet daily along with 50 mg tablet hydroCHLOROthiazide (HYDRODIURIL, ESIDRIX) 25 mg tablet 30 tablet 5 Sig: Take 1 tablet by mouth once daily. RX INSTRUCTIONS: Patient aware RX will be sent to pharmacy. No need to notify patient. Nilsa Fulton documented in this encounterK[facility]09-07-2022 Miscellaneous Notes* Telephone Encounter - Gemini Cárdenas LPN - 12/31/2021 10:57 AM EDT LYLE 09/08/2021 No upcoming appointment scheduled. Gemini Cárdenas LPN * Telephone Encounter - Nilas Fulton - 12/31/2021 9:17 AM EDT Patient has been identified by name and date of : Yes Requested Prescriptions Pending Prescriptions Disp Refills sertraline (ZOLOFT) 50 mg tablet 90 tablet 1 Sig: Take 1 tablet by mouth once daily. RX INSTRUCTIONS: Patient aware RX will be sent to pharmacy. No need to notify patient. Nilsa Fulton documented in this encounterK[facility]05-24-2022 Miscellaneous Notes* Telephone Encounter - Reshma Huang LPN - 09/16/2021 3:24 PM EDT Patient has been identified by name and date of : Yes Patient phones for refill(s): Pending Prescriptions Disp Refills VERAPAMIL ER 180 MG 24 HR CAPSULE,EXTENDED RELEASE 90 capsule 3 Sig: Take 1 capsule by mouth daily at bedtime. KEI: No ALENDRONATE 70 MG TABLET 12 tablet 3 Sig: Take 1 tablet by mouth one time a week. Take with a full glass of water, on an empty stomach; do NOT lie down for 30minutes. KEI: No ATORVASTATIN 40 MG TABLET 90 tablet 3 Sig: Take 1 tablet by mouth daily at bedtime. For cholesterol. KEI: No Date of last office visit in primary care: 09/08/2021 No future appt scheduled. Last 2 Encounter Wt Readings: Date: Wt: 09/08/2021 61.6 kg (135 lb 12.8 oz) 03/03/2021 62.4 kg (137 lb 9.6 oz) Previous labs/tests for medication: Cholesterol: HDL Cholesterol (mg/dL) Date Value 09/08/2021 45 12/01/2019 34 LDL Cholesterol (mg/dL) Date Value 09/08/2021 78 12/01/2019 54 ALT (U/L) Date Value 07/24/2020 16 Non HDL Cholesterol (mg/dL) Date Value 09/08/2021 101 12/01/2019 84 Blood Pressure: BUN (mg/dL) Date Value 09/08/2021 12 09/04/2020 17 Sodium (mmol/L) Date Value 09/08/2021 139 09/04/2020 141 Last 1 Encounter BP Readings: Date: BP: 09/08/2021 126/82 Please advise. Thank you. Reshma Huang LPN documented in this encounterK[facility]05-17-2022 Miscellaneous Notes* Telephone Encounter - Ana Patrick LPN - 09/09/2021 12:30 PM EDT Patient notified and verbalized understanding. Ana Patrick LPN * Telephone Encounter - Gladis Serrano RN - 09/09/2021 11:18 AM EDT Called and left a voicemail for the Patient to call back and ask for a nurse to receive the providers message. Gladis Serrano RN * Telephone Encounter - Dinorah Eduardo APRN.CNP - 09/09/2021 11:13 AM EDT Please call patient and let her know her blood work is in acceptable ranges. Continue current medications. Dinorah Eduardo APRN.CNP documented in this encounterK[facility]05-16-2022 History of Present illness Narrative* Dinorah Eduardo APRN.CNP - 09/08/2021 10:11 AM EDT 09/08/2021 Patient presents with: F/U 6 months SUBJECTIVE: This is a 71 year old that is here today for Above Complaints. Since last office visit has been in good health without ER visits or hospitalizations HTN: Patient is compliant with meds Yes Monitors bp at home: Yes. Denies side effects: Yes. Chest pain: No. Dyspnea: No. Edema: No. Palpitations: No. Syncope: No. Headache: No. Dizziness: No. HYPERLIPIDEMIA: Patient is taking medications: Yes. Patient is watching diet: Yes. Patient denies myalgias: Yes. Patient denies gi upset: Yes Depression: taking Zoloft as prescribed which works well to control symptoms. Does not attend counseling CKD: eating glow salt diet. Admits to occasional use of advil Back Pain: ONSET: two months LOCATION: low back, over to right hip and up back as the day goes on DURATION: contant CHARACTERISTICS: dull ache AGGRAVATING FEATURES: any physical activity ALLEVIATING FEATURES: has tried OTC advil RADIATION: right hip Denies hx of back surgery, extremity numbness, tingling, saddle anaesthesia, or urinary/bowel incontinence or inability Continues to smoke about 1.5 packs a day. Does not desire to quit at this time PAST MEDICAL HISTORY Diagnosis Date HTN (hypertension) 04/10/2015 Irritable bowel syndrome (IBS) 1950s Major depression, recurrent, chronic (HCC) 04/10/2015 Mixed hyperlipidemia 04/10/2015 Osteoarthritis cervical spine 2013 Osteoporosis 02/22/2016 Overdose of antidepressant 2006 [facility] Sciatica, right side 2012 ALLERGIES Bees, Lactose Intolerance [Lactase], and Latex MEDICATIONS Current Outpatient Medications Medication Sig sertraline (ZOLOFT) 100 mg tablet Take one tablet daily along with 50 mg tablet hydroCHLOROthiazide (HYDRODIURIL, ESIDRIX) 25 mg tablet Take 1 tablet by mouth once daily. sertraline (ZOLOFT) 50 mg tablet Take 1 tablet by mouth once daily. verapamil ER 180 mg 24 hr capsule Take 1 capsule by mouth daily at bedtime. atorvastatin (LIPITOR) 40 mg tablet Take 1 tablet by mouth daily at bedtime. For cholesterol. alendronate (FOSAMAX) 70 mg tablet Take 1 tablet by mouth one time a week. Take with a full glass of water, on an empty stomach; do NOT lie down for 30minutes. losartan (COZAAR) 100 mg tablet Take 1 tablet by mouth once daily. (Patient taking differently: Take 150 mg by mouth once daily. ) Cholecalciferol, Vitamin D3, 25 mcg (1,000 unit) cap Take 2 capsules by mouth once daily. Miscellaneous Medical Supply (BLOOD PRESSURE CUFF) 1 Each once daily. Take BP daily in morning Cane 1 Device as needed. aspirin, enteric coated (ASPIRIN, ENTERIC COATED) 81 mg EC tablet Take 1 tablet by mouth once daily. (Patient not taking: Reported on 03/03/2021 ) No current facility-administered medications for this visit. Medications and allergies reviewed by this provider. SOCIAL HISTORY Social History Tobacco Use Smoking status: Current Every Day Smoker Packs/day: 1.50 Years: 39.00 Pack years: 58.50 Types: Cigarettes Start date: 1967 Smokeless tobacco: Never Used Substance Use Topics Alcohol use: No Drug use: No REVIEW OF SYSTEMS All other reviewed and negative other than HPI. OBJECTIVE: BP 126/82 Pulse 73 Resp 18 Wt 61.6 kg (135 lb 12.8 oz) SpO2 94% BMI 22.60 kg/m . Vital signs reviewed by this provider. APPEARANCE Well appearing, alert, in no acute distress, well-hydrated, well nourished. EYES PERRLA, conjunctiva and sclera normal. HEART RRR with normal S1 and S2, no murmurs, no gallops, no JVD appreciated LUNG clear to auscultation. No wheezes, rhonchi, or rales BACK: Normal exam, good flexion and extension, negative SLR test EXTREMITIES Extremities normal, No deformities, No skin discoloration and No edema NEURO Awake, alert and oriented x 3, Reflexes symmetrical, Normal gait, No involuntary motions. andnegative findings: muscle tone normal, muscle strength normal, reflexes normal and symmetric, plantar response downgoing bilaterally SKIN Skin color, texture, turgor normal, no suspicious rashes or lesions to exposed skin BILATERAL HIPS: FROM without pain. No TTP Component Latest Ref Rng & Units 07/24/2020 09/04/2020 Protein, Total 6.3 - 8.0 g/dL 7.6 Albumin 3.9 - 4.9 g/dL 4.8 Calcium 8.5 - 10.2 mg/dL 9.5 9.9 Bilirubin, Total 0.2 - 1.3 mg/dL 0.6 Alkaline Phosphatase 34 - 123 U/L 123 AST 13 - 35 U/L 22 Glucose 74 - 99 mg/dL 86 112 (H) BUN 7 - 21 mg/dL 12 17 Creatinine 0.58 - 0.96 mg/dL 1.02 (H) 1.11 (H) Sodium 136 - 144 mmol/L 142 141 Potassium 3.7 - 5.1 mmol/L 4.1 3.9 Chloride 97 - 105 mmol/L 103 99 CO2 22 - 30 mmol/L 27 30 Anion Gap 9 - 18 mmol/L 12 12 ALT 7 - 38 U/L 16 eGFR- >60 59 eGFR-All Other Races . 53 48 WBC 3.70 - 11.00 k/uL 5.58 RBC 3.90 - 5.20 m/uL 5.56 (H) Hemoglobin 11.5 - 15.5 g/dL 16.3 (H) Hematocrit 36.0 - 46.0 % 50.8 (H) MCV 80.0 - 100.0 fL 91.4 MCH 26.0 - 34.0 pG 29.3 MCHC 30.5 - 36.0 g/dL 32.1 RDW-CV 11.5 - 15.0 % 13.8 Platelet Count 150 - 400 k/uL 164 MPV 9.0 - 12.7 fL 11.2 Absolute nRBC <0.01 k/uL <0.01 Vitamin D 25 Hydroxy 31.0 - 80.0 ng/mL 30.2 (L) TSH 0.270 - 4.200 uU/mL 1.100 LUNG CANCER SCREENING Never done SHINGRIX VACCINE(1 of 2) Never done MAMMOGRAM due on 04/16/2016 COLORECTAL CANCER SCREENING due on 12/11/2020 ADVANCE DIRECTIVE DISCUSSION Never done COVID-19 VACCINE(4 - Booster for Moderna series) due on 08/13/2021 DTAP,TDAP,TD(1 - Tdap) due on 03/03/2022 BP CONTROLLED (<130/80) due on 03/03/2022 ANNUAL PCP TEAM CHRONIC DISEASE VISIT due on 09/08/2022 DIABETES SCREEN due on 09/05/2023 LIPID SCREEN due on 11/30/2024 BONE DENSITY Completed INFLUENZA Completed HEPATITIS C SCREENING Completed PNEUMOVAX AGE 65 AND OVER WITH 5YR LOOKBACK Completed MENINGOCOCCAL CONJUGATE Aged Out ASSESSMENT/PLAN: 1. Essential hypertension - ICD9: 401.9, ICD10: I10 (primary diagnosis) - good control - Continue current medication(s) - Encouraged dietary sodium restriction/DASH diet - Recommended regular aerobic exercise. - Recommend home blood pressure monitoring, to bring results in on next visit - Recheck in 6 months, sooner should new symptoms or problems arise. - Goal of BP <130/80 - Patient counselled on smoking cessation. - Recommended no refined sugar, low refined starch, healthy oil intake (olive oil), healthy protein(fish) along the lines of the Mediterranean diet. 2. Osteoarthritis, unspecified osteoarthritis type, unspecified site - ICD9: 715.90, ICD10: M19.90 - LIDOCAINE 5 % TOPICAL PATCH 3. Encounter for screening fecal occult blood testing - ICD9: V76.51, ICD10: Z12.11 - FECAL OCCULT BLOOD TEST 4. Encounter for screening for lung cancer - ICD9: V76.0, ICD10: Z12.2 - CONSULT LUNG CANCER SCREENING CLINIC 5. Major depression, recurrent, chronic (HCC) - ICD9: 296.30, ICD10: F33.9 - stable on current regime 6. Mixed hyperlipidemia - ICD9: 272.2, ICD10: E78.2 - to be determined upon return of lab results - Continue current medication. - Encouraged following a low fat, low cholesterol diet. - Discussed the benefits of regular aerobic exercise and weight loss. - Follow up in 6 months. - Encouraged following a low carbohydrate, healthy oil intake diet. 7. Tobacco use disorder - ICD9: 305.1, ICD10: F17.200 - Cessation encouraged. - Physiologic and physical aspects of tobacco addiction as well as strategies for quitting were discussed. - Counseling was given focusing on the harmful effects of this addiction especially given the patient's medical condition(s) which will be worsened because of the chemicals in tobacco. 8. Lumbar back pain - ICD9: 724.2, ICD10: M54.50 - no red flag symptoms or exam findings - red flag symptoms discussed, verbalizes understanding - may use OTC tylenol arthritis, heat or ice for 15 minutes at a time, avoid sleeping on heating pad - offered PT referral- declines at this time - LIDOCAINE 5 % TOPICAL PATCH 9. Stage 3a chronic kidney disease (HCC) - ICD9: 585.3, ICD10: N18.31 - discussed she should not use OTC NSAID products- tylenol only - continue low salt diet Dinorah Eduardo APRN.ZOILA Prescription instructions reviewed with patient as applicable. Patient advised if symptoms do not improve or if symptoms worsen sooner, to contact their primary care physician. Potential red flag symptoms discussed with the patient. Reviewed appropriate action plan to take if red flag symptoms occur. Patient agreeable to treatment plan. documented in this encounterK[facility]05-02-2022 Miscellaneous Notes* Telephone Encounter - Chana Armstrong LPN - 08/25/2021 8:12 AM EDT Left a detailed message reminding pt she has fasting blood work due before her next apt. Patient has been identified by name and date of : Yes Pharmacy phones for refill(s): Pending Prescriptions Disp Refills SERTRALINE 100 MG TABLET 90 tablet 0 Sig: Take one tablet daily along with 50 mg tablet KEI: No Date of last office visit in primary care: 03/03/21 next a[t 09/08/21 Last 2 Encounter Wt Readings: Date: Wt: 03/03/2021 62.4 kg (137 lb 9.6 oz) 09/04/2020 60.1 kg (132 lb 6.4 oz) Previous labs/tests for medication: Not applicable Please advise. Thank you. Chana Armstrong LPN documented in this encounterK[facility]04-13-2022 Miscellaneous Notes* Telephone Encounter - MARTHA Conroy - 08/06/2021 7:03 PM EDT Patient has been identified by name and date of : Yes Last office visit in this department: 03/03/2021 RX INSTRUCTIONS: Patient aware RX will be sent to pharmacy. No need to notify patient. Patient phones requesting refills as follows: Pending Prescriptions Disp Refills SERTRALINE 50 MG TABLET 90 tablet 2 Sig: Take 1 tablet by mouth once daily. KEI: No Please review and advise. MARTHA Conroy documented in this encounterKettering [facility]03-31-2021 History of Present illness Narrative* Renita Clemente)Isabela - 07/24/2020 10:50 AM EDT Radiology Service Progress Note PATIENT NAME: Snow Solis DATE OF SERVICE: July 24, 2020 TIME: 10:45 AM PATIENT IDENTITY VERIFICATION COMPLETED USING TWO (2) IDENTIFIERS: Name and Date of confirmedby patient verbally. FALL SCREENING: Has the patient had 2 falls in the last year or 1 fall with injury or currently using an Ambulatory Assistive Device (Walker, Cane, Wheelchair, Crutches, etc.)? No PATIENT GENDER DATA: Female. status: : No status: NO. PATIENT RELEVANT IMPLANT DATA REVIEWED: Yes RADIOLOGY DEPARTMENT: General X-ray: Exam(s) Completed: Spine X-Ray(s): Thoracic PERIPHERAL IV DATA: Not applicable SIGNED BY: RT Felicia July 24, 2020 10:45 AM [facility] Diagnosis Anxiety with depression [facility]* Diagnosis Major depression, recurrent, chronic (HCC) Major depressive disorder, recurrent episode, unspecified [facility]* Diagnosis Essential hypertension- Primary Unspecified essential hypertension Osteoarthritis, unspecified osteoarthritis type, unspecified site Encounter for screening fecal occult blood testing Special screening for malignant neoplasms, colon Encounter for screening for lung cancer Major depression, recurrent, chronic (HCC) Major depressive disorder, recurrent episode, unspecified Mixed hyperlipidemia Tobacco use disorder Lumbar back pain Lumbago Stage 3a chronic kidney disease (HCC) documented [facility]* Diagnosis Osteoporosis Osteoporosis, unspecified Mixed hyperlipidemia documented in this encounter [facility] note* Diagnosis Encounter for screening mammogram for breast cancer documented in this encounter [facility] note* Diagnosis Major depression, recurrent, chronic (HCC) Major depressive disorder, recurrent episode, unspecified Anxiety with depression documented in this encounter [facility] note* Diagnosis Osteoporosis Osteoporosis, unspecified Major depression, recurrent, chronic (HCC) Major depressive disorder, recurrent episode, unspecified Anxiety with depression documented in this encounter [facility] note* Diagnosis Anxiety with depression Mixed hyperlipidemia [facility] Diagnosis Essential hypertension- Primary Unspecified essential hypertension Mixed hyperlipidemia Major depression, recurrent, chronic (HCC) Major depressive disorder, recurrent episode, unspecified Screening for colon cancer Special screening for malignant neoplasms, colon Encounter for immunization Need for other specified prophylactic vaccination against single bacterial disease Chest wall pain Painful respiration Stage 3a chronic kidney disease (HCC) Dizziness Dizziness and giddiness Tobacco use disorder Osteoporosis, unspecified osteoporosis type, unspecified pathological fracture presence Vitamin D deficiency Unspecified vitamin D deficiency documented in this encounter [facility]* Diagnosis Encounter for screening mammogram for breast cancer documented in this encounter [facility] note* Diagnosis Essential hypertension- Primary Unspecified essential hypertension Mixed hyperlipidemia Osteoporosis Osteoporosis, unspecified Major depression, recurrent, chronic (HCC) Major depressive disorder, recurrent episode, unspecified Weight loss Loss of weight Change in stool Nonspecific abnormal finding in stool contents Tobacco use disorder Fatigue, unspecified type Stage 3a chronic kidney disease (HCC) Lumbar back pain Lumbago Age-related osteoporosis without current pathological fracture Senile osteoporosis documented in this encounter [facility] note* Diagnosis Major depression, recurrent, chronic (HCC) Major depressive disorder, recurrent episode, unspecified documented in this encounter [facility]* Diagnosis Encounter for screening mammogram for breast cancer documented in this encounter [facility]* Diagnosis Osteoporosis Osteoporosis, unspecified documented in this encounter [facility] note* Diagnosis Major depression, recurrent, chronic (HCC) Major depressive disorder, recurrent episode, unspecified [facility] Diagnosis Acute right-sided thoracic back pain documented in this encounter [facility] note* Diagnosis Essential hypertension Unspecified essential hypertension documented in this encounter [facility] note* Diagnosis Mixed hyperlipidemia documented in this encounter [facility] note* Diagnosis Mixed hyperlipidemia documented in this encounter [facility] noteNo assessment information availableWTrinity [facility] Work Phone: Evaluation note* Diagnosis Major depression, recurrent, chronic Major depressive disorder, recurrent episode, unspecified [facility] Additional Instructions Your blood work and urine was normal. Your CT scan shows no acute findings. You do have arthritis and narrowing in the spine which could be causing your pain. I recommend Tylenol and ibuprofen and follow-up with your primary care doctor. The CT scan also shows the pancreas duct is dilated or swollen which needs outpatient evaluation. Talk with your primary care doctor about if getting an outpatient MRI of the abdomen or MRCP is appropriate.[facility] Work Phone: Reason for referral (narrative)* Diagnostic Procedure Only (Routine) - Pending Review Specialty Diagnoses / Procedures Referred By Gera schwarz Referred To Contact [facility] Diagnoses Encounter for screening mammogram for breast cancer Procedures KUN SCREENING SCREENING MAMMOGRAPHY BI 2-VIEW BREAST INC CAD Dinorah Eduardo APRN.CNP [address] [place] [address] [facility] [address] [place] [address] Referral ID Status Reason Start Date Expiration Date Visits Requested Visits Authorized [id number] Pending Review Auto-Generat ed Referral 01/28/2022 02/27/2023 1 1 [facility] Outpatient Procedure (Routine) - Closed Specialty Diagnoses / Procedures Referred By Gera schwarz Ref[facility] Diagnoses Chest wall pain Procedures ECG COMPLETE ECG ROUTINE ECG W/LEAST 12 LDS W/I&R Dinorah Eduardo APRN.CNP [address] [place] [address] [facility] [place] [address] [place] [address] Referral ID Status Reason Start Date Expiration Date V isits Requested Visits Authorized [id number] Closed Auto-Generate d Referral 07/20/2022 07/20/2023 1 1 [facility] Diagnostic Procedure Only (Routine) - Pending Review Specialty Diagnoses / Procedures Referred By Contac t Referred To Contact [facility] Diagnoses Encounter for screening mammogram for breast cancer Procedures KUN SCREENING SCREENING MAMMOGRAPHY BI 2-VIEW BREAST INC CAD Dinorah Eduardo APRN.BATCH UNLOADER [address] [place] [address] [facility] [address] [place] [address] Referral ID Status Reason Start Date Expiration Date Visits Requested Visits Authorized [id number] Pending Review Auto-Generat ed Referral 01/27/2023 02/26/2024 1 1 [facility] Diagnostic Procedure Only (Routine) - New Request Specialty Diagnoses / Procedures Referred By Gera t Referred To Contact [facility] Diagnoses Encounter for screening mammogram for breast cancer Procedures KUN SCREENING W JOMAR SCREENING DIGITAL BREAST TOMOSYNTHESIS BI SCREENING MAMMOGRAPHY BI 2-VIEW BREAST INC CAD Dinorah Eduardo APRN.BATCH UNLOADER [address] [place] [address] [facility] [address] [place] [address] Referral ID Status Reason Start Date Expiration Date Visits Requested Visits Authorized [id number] New Request Auto-Generat ed Referral 12/29/2023 01/27/2025 1 1 [facility])No reason for referral information availableWTrinity [facility] Work Phone: Reason for Referral Specialty Diagnoses / Procedures Referred By Contac t Referred To Contact Diagnoses Encounter for screening for lung cancer Procedures CONSULT LUNG CANCER SCREENING CLINIC PodlogarDinorah APRN.BATCH UNLOADER [address] [place] [address] Referral ID Status Reason Start Date Expiration Date Visits Requested Visits Authorized [id number] Ref Not Required PCP Requested Referral 09/08/2021 12/07/2021 1 1 Specialty Diagnoses / Procedures Referred By Contac t Referred To Contact General Surgery Diagnoses Weight loss Change in stool Procedures CONSULT TO GENERAL SURGERY OFFICE/OUTPATIENT [facility] HIGH MDM 60 MINUTES PodlogarDinorah APRN.BATCH UNLOADER [address] [place] [address] Referral ID Status Reason Start Date Expiration Date Visits Requested Visits Authorized [id number] Authorized PCP Requested Referral 08/10/2023 08/09/2024 1 1 Chief Complaint and Reason for Visit Chief Complaint Admit Date back pain July 31, 2024 2:00 pm Chief Complaint Admit Date back pain July 31, 2024 2:00 pm HTN November 24, 2024 12: 55pm Advance Directives Advance Directive Response Recorded Date/ Time Living Will Yes July 31, 2024 2:49pm Do you have a Healthcare Power of Hand Binder Stripper? Yes July 31, 2024 2:49pm Name of Medical Power of Hand Binder Stripper Sendy July 31, 2024 2:49pm Summary Purpose Family History No Family History Records FoundNo Family History Records Found Additional Source Comments Source Comments (unrecognize d section and content) In the event this informatio n is protected by the Federal Confidentiality of Alcohol and Drug Abuse Patient Records regulations: The Federal rules restrict any use of the information to criminally investigate or prosecute any alcohol or drug abuse patient.[facility] the event this information is protected by the Federal Confidentiality of Alcohol and Drug Abuse Patient Records regulations: The Federal rules restrict any use of the information to criminally investigate or prosecute any alcohol or drug abuse patient.[facility]In the event this information is protected by the Federal Confidentiality of Alcohol and Drug Abuse Patient Records regulations: The Federal rules restrict any use of the information to criminally investigate or prosecute any alcohol or drug abuse patient.[facility]bleIn the event this information is protected by the Federal Confidentiality of Alcohol and Drug Abuse Patient Records regulations: The Federal rules restrict any use of the information to criminally investigate or prosecute any alcohol or drug abuse patient.[facility]bleIn the event this information is protected by the Federal Confidentiality of Alcohol and Drug Abuse Patient Records regulations: The Federal rules restrict any use of the information to criminally investigate or prosecute any alcohol or drug abuse patient.[facility]bleIn the event this information is protected by the Federal Confidentiality of Alcohol and Drug Abuse Patient Records regulations: The Federal rules restrict any use of the information to criminally investigate or prosecute any alcohol or drug abuse patient.[facility]In the event this information is protected by the Federal Confidentiality of Alcohol and Drug Abuse Patient Records regulations: The Federal rules restrict any use of the information to criminally investigate or prosecute any alcohol or drug abuse patient.[facility]In the event this information is protected by the Federal Confidentiality of Alcohol and Drug Abuse Patient Records regulations: The Federal rules restrict any use of the information to criminally investigate or prosecute any alcohol or drug abuse patient.[facility]In the event this information is protected by the Federal Confidentiality of Alcohol and Drug Abuse Patient Records regulations: The Federal rules restrict any use of the information to criminally investigate or prosecute any alcohol or drug abuse patient.[facility]In the event this information is protected by the Federal Confidentiality of Alcohol and Drug Abuse Patient Records regulations: The Federal rules restrict any use of the information to criminally investigate or prosecute any alcohol or drug abuse patient.[facility]In the event this information is protected by the Federal Confidentiality of Alcohol and Drug Abuse Patient Records regulations: The Federal rules restrict any use of the information to criminally investigate or prosecute any alcohol or drug abuse patient.[facility]bleIn the event this information is protected by the Federal Confidentiality of Alcohol and Drug Abuse Patient Records regulations: The Federal rules restrict any use of the information to criminally investigate or prosecute any alcohol or drug abuse patient.[facility]bleIn the event this information is protected by the Federal Confidentiality of Alcohol and Drug Abuse Patient Records regulations: The Federal rules restrict any use of the information to criminally investigate or prosecute any alcohol or drug abuse patient.[facility]bleIn the event this information is protected by the Federal Confidentiality of Alcohol and Drug Abuse Patient Records regulations: The Federal rules restrict any use of the information to criminally investigate or prosecute any alcohol or drug abuse patient.[facility]In the event this information is protected by the Federal Confidentiality of Alcohol and Drug Abuse Patient Records regulations: The Federal rules restrict any use of the information to criminally investigate or prosecute any alcohol or drug abuse patient.[facility]bleIn the event this information is protected by the Federal Confidentiality of Alcohol and Drug Abuse Patient Records regulations: The Federal rules restrict any use of the information to criminally investigate or prosecute any alcohol or drug abuse patient.[facility]bleIn the event this information is protected by the Federal Confidentiality of Alcohol and Drug Abuse Patient Records regulations: The Federal rules restrict any use of the information to criminally investigate or prosecute any alcohol or drug abuse patient.[facility]bleIn the event this information is protected by the Federal Confidentiality of Alcohol and Drug Abuse Patient Records regulations: The Federal rules restrict any use of the information to criminally investigate or prosecute any alcohol or drug abuse patient.[facility]In the event this information is protected by the Federal Confidentiality of Alcohol and Drug Abuse Patient Records regulations: The Federal rules restrict any use of the information to criminally investigate or prosecute any alcohol or drug abuse patient.[facility]In the event this information is protected by the Federal Confidentiality of Alcohol and Drug Abuse Patient Records regulations: The Federal rules restrict any use of the information to criminally investigate or prosecute any alcohol or drug abuse patient.[facility]In the event this information is protected by the Federal Confidentiality of Alcohol and Drug Abuse Patient Records regulations: The Federal rules restrict any use of the information to criminally investigate or prosecute any alcohol or drug abuse patient.[facility]In the event this information is protected by the Federal Confidentiality of Alcohol and Drug Abuse Patient Records regulations: The Federal rules restrict any use of the information to criminally investigate or prosecute any alcohol or drug abuse patient.[facility] the event this information is protected by the Federal Confidentiality of Alcohol and Drug Abuse Patient Records regulations: The Federal rules restrict any use of the information to criminally investigate or prosecute any alcohol or drug abuse patient.[facility]In the event this information is protected by the Federal Confidentiality of Alcohol and Drug Abuse Patient Records regulations: The Federal rules restrict any use of the information to criminally investigate or prosecute any alcohol or drug abuse patient.[facility]bleIn the event this information is protected by the Federal Confidentiality of Alcohol and Drug Abuse Patient Records regulations: The Federal rules restrict any use of the information to criminally investigate or prosecute any alcohol or drug abuse patient.[facility]In the event this information is protected by the Federal Confidentiality of Alcohol and Drug Abuse Patient Records regulations: The Federal rules restrict any use of the information to criminally investigate or prosecute any alcohol or drug abuse patient.[facility] the event this information is protected by the Federal Confidentiality of Alcohol and Drug Abuse Patient Records regulations: The Federal rules restrict any use of the information to criminally investigate or prosecute any alcohol or drug abuse patient.[facility] the event this information is protected by the Federal Confidentiality of Alcohol and Drug Abuse Patient Records regulations: The Federal rules restrict any use of the information to criminally investigate or prosecute any alcohol or drug abuse patient.[facility]In the event this information is protected by the Federal Confidentiality of Alcohol and Drug Abuse Patient Records regulations: The Federal rules restrict any use of the information to criminally investigate or prosecute any alcohol or drug abuse patient.[facility]In the event this information is protected by the Federal Confidentiality of Alcohol and Drug Abuse Patient Records regulations: The Federal rules restrict any use of the information to criminally investigate or prosecute any alcohol or drug abuse patient.[facility] the event this information is protected by the Federal Confidentiality of Alcohol and Drug Abuse Patient Records regulations: The Federal rules restrict any use of the information to criminally investigate or prosecute any alcohol or drug abuse patient.[facility]In the event this information is protected by the Federal Confidentiality of Alcohol and Drug Abuse Patient Records regulations: The Federal rules restrict any use of the information to criminally investigate or prosecute any alcohol or drug abuse patient.[facility] Reason for Visit (unrecogniz ed section and content) Reason Onset Date Comments Refill Request 08/06/2021 Reason Onset Date Comments Refill Request 08/25/2021 Reason Comments F/U 6 months Reason Comments Results Reason Onset Date Comments Refill Request 09/16/2021 Reason Onset Date Comments Refill Request 12/31/2021 Reason Onset Date Comments Refill Request 01/05/2022 Reason Onset Date Comments Refill Request 03/23/2022 Reason Onset Date Comments Refill Request 07/10/2022 Reason Onset Date Comments Refill Request 07/13/2022 Reason Comments Recheck Reason Onset Date Comments Population Health Navigation Outreach 08/18/2022 [facility]SA Reason Onset Date Comments Refill Request 09/18/2022 Reason Onset Date Comments Refill Request 07/06/2023 Reason Onset Date Comments Refill Request 07/21/2023 Opened In Error 07/21/2023 Reason Onset Date Comments Refill Request 11/03/2023 Reason Onset Date Comments Refill Request 01/21/2024 Reason Onset Date Comments Refill Request 02/01/2024 Reason Onset Date Comments Refill Request 02/03/2024 Reason Onset Date Comments Refill Request 02/24/2024 Reason Onset Date Comments Refill Request 03/06/2024 Reason Onset Date Comments Refill Request 05/11/2024 Reason Comments Other Reason Onset Date Comments Refill Request No PCP 10/19/2024 Future Appointment 10/19/2024 Care Teams (unrecognized sec tion and content) Vice President Of Sales Relationship Specialty Start Date End Date Podlogar, Dinorah, COLLAR STAY FUSER TENDER.BATCH UNLOADER [address] [place] [address] PCP - General Family Practice 02/21/21 Vice President Of Sales Relationship Specialty Start Date End Date Podlogar, Dinorah, COLLAR STAY FUSER TENDER.BATCH UNLOADER [address] [place] [address] PCP - General Family Practice 02/21/21 Vice President Of Sales Relationship Specialty Start Date End Date Podlogar, Dinorah, COLLAR STAY FUSER TENDER.BATCH UNLOADER [address] [place] [address] PCP - General Family Practice 02/21/21 Vice President Of Sales Relationship Specialty Start Date End Date Podlogar, Dinorah, COLLAR STAY FUSER TENDER.BATCH UNLOADER [address] [facility] [place] [address] PCP - General Family Practice 02/21/21 Vice President Of Sales Relationship Specialty Start Date End Date Podlogar, Dinorah, COLLAR STAY FUSER TENDER.BATCH UNLOADER [address] [place] [address] PCP - General Family Medicine 02/21/21 Vice President Of Sales Relationship Specialty Start Date End Date Podlogar, Dinorah, COLLAR STAY FUSER TENDER.BATCH UNLOADER [address] [place] [address] PCP - General Family Medicine 02/21/21 Vice President Of Sales Relationship Specialty Start Date End Date Podlogar, Dinorah, COLLAR STAY FUSER TENDER.BATCH UNLOADER [address] [place] [address] PCP - General Family Medicine 02/21/21 Vice President Of Sales Relationship Specialty Start Date End Date Podlogar, Dinorah, COLLAR STAY FUSER TENDER.BATCH UNLOADER [address] [place] [address] PCP - General Family Medicine 02/21/21 Vice President Of Sales Relationship Specialty Start Date End Date Podlogar, Dinorah, COLLAR STAY FUSER TENDER.BATCH UNLOADER [address] [facility] [place] [address] PCP - General Family Medicine 02/21/21 Vice President Of Sales Relationship Specialty Start Date End Date Podlogar, Dinorah, COLLAR STAY FUSER TENDER.BATCH UNLOADER [address] [facility] [place] [address] PCP - General Family Medicine 02/21/21 Vice President Of Sales Relationship Specialty Start Date End Date Podlogar, Dinorah, COLLAR STAY FUSER TENDER.BATCH UNLOADER [address] [facility] [place] [address] PCP - General Family Medicine 02/21/21 Vice President Of Sales Relationship Specialty Start Date End Date Podlogar, Dinorah, COLLAR STAY FUSER TENDER.BATCH UNLOADER [address] [facility] [place] [address] PCP - General Family Medicine 02/21/21 Vice President Of Sales Relationship Specialty Start Date End Date Podlogar, Dinorah, COLLAR STAY FUSER TENDER.BATCH UNLOADER [address] [facility] [place] [address] PCP - General Family Medicine 02/21/21 Vice President Of Sales Relationship Specialty Start Date End Date Podlogar, Dinorah, COLLAR STAY FUSER TENDER.BATCH UNLOADER [address] [facility] [place] [address] PCP - General Family Medicine 02/21/21 Vice President Of Sales Relationship Specialty Start Date End Date Podlogar, Dinorah, COLLAR STAY FUSER TENDER.BATCH UNLOADER [address] [facility] [place] [address] PCP - General Family Medicine 02/21/21 Vice President Of Sales Relationship Specialty Start Date End Date Podlogar, Dinorah, COLLAR STAY FUSER TENDER.BATCH UNLOADER [address] [facility] [place] [address] PCP - General Family Medicine 02/21/21 Vice President Of Sales Relationship Specialty Start Date End Date Podlogar, Dinorah, COLLAR STAY FUSER TENDER.BATCH UNLOADER [address] [facility] [place] [address] PCP - General Family Medicine 02/21/21 Vice President Of Sales Relationship Specialty Start Date End Date Podlogar, Dinorah, COLLAR STAY FUSER TENDER.BATCH UNLOADER [address] [facility] [place] [address] PCP - General Family Medicine 02/21/21 Vice President Of Sales Relationship Specialty Start Date End Date Podlogar, Dinorah, COLLAR STAY FUSER TENDER.BATCH UNLOADER [address] [place] [address] PCP - General Family Medicine 02/21/21 Vice President Of Sales Relationship Specialty Start Date End Date Podlogar, Dinorah, COLLAR STAY FUSER TENDER.BATCH UNLOADER [address] [place] [address] PCP - General Family Medicine 02/21/21 Team Status: Active Member Role Status Dates No Primary Care Physician Primary Care Provider Active Team Status: Inactive Member Role Status Dates No Primary Care Physician Primary Care Provider Active Start: July 31, 2024 End: July 31, 2024 Dr. Wallace Shaw DO Emergency Provider Active Start: July 31, 2024 End: July 31, 2024 Vice President Of Sales Relationship Specialty Start Date End Date Podlogar, Dinorah, COLLAR STAY FUSER TENDER.BATCH UNLOADER [address] [place] [address] PCP - General Family Medicine 02/21/21 09/24/24 Team Status: Active Member Role/Relationship Status Dates No Primary Care Physician Primary Care Provider Active Team Status: Inactive Member Role/Relationship Status Dates No Primary Care Physician Primary Care Provider Active Start: July 31, 2024 End: July 31, 2024 Dr. Wallace Shaw DO Attending Provider Active Start: July 31, 2024 End: July 31, 2024 Dr. Wallace Shaw DO Emergency Provider Active Start: July 31, 2024 End: July 31, 2024 Team Status: Inactive Member Role/Relationship Status Dates No Primary Care Physician Primary Care Provider Active Start: November 24, 2024 End: November 24, 2024 Ed Physician Provider Emergency Provider Active Start: November 24, 2024 End: November 24, 2024 Goals (unrecognized section and content) Goals may be documented in a n alternate sectionGoals may be documented in an alternate section INFORMATION SOURCE (unrecogn ized section and content) DATE CREATED AUTHOR 08/05/2024 [facility] DATE CREATED AUTHOR ROSANNE GARCIA 10/24/2024 [facility] FOR RECORDS PERTAINING TO PATIENTS WHO ARE OR HAVE BEEN ENROLLED IN A CHEMICAL DEPENDENCY/SUBSTANCEABUSE PROGRAM, SOME INFORMATION MAY BE OMITTED. This clinical summary was aggregated from multiple sources. Caution should be exercised in using it in the provision of clinical care. This summary normalizes information from multiple sources, and as a consequence, information in this document may materially change the coding, format and clinical context of patient data. In addition, data may be omitted in some cases. CLINICAL DECISIONS SHOULD BE BASED ON THE PRIMARY CLINICAL RECORDS. [facility]. provides no warranty or guarantee of the accuracy or completeness of information in this document.
--- NOTE | 2024-11-26 13:49 | ED.RN ---
1435: RADIOLOGY CALLED FOR OUTSTANDING ULTRASOUND RESULTS
--- NOTE | 2024-11-26 13:56 | ED.RN ---
PT. FOUND WALKING TOWARDS THE EXIT OF THE DEPARTMENT IN PERSONAL CLOTHING. SALINE LOCK IN PLACE. PT. ASKED WHERE SHE WAS GOING. PT. STATED, HOME I HAVE BEEN WAITING TOO LONG. PT. INSTRUCTED RADIOLOGY WAS CONTACTED REGARDING ULTRASOUND AND THEN A PROVIDER WOULD BE BACK. PT. STATED, I WANT TO GO HOME. PT. ENCOURAGED TO RETURN TO ROOM AND THE PROVIDER WOULD BE NOTIFIED OF REQUEST. PT RETURNED TO ROOM REFUSED TO BE PLACED ON THE PIPE CHIPPER. 1359: PROVIDER NOTIFIED AT THIS TIME
--- NOTE | 2024-11-26 14:08 | ED.RN ---
1402: PT. IN ROOM HOLDING IV SITE AFTER SHE REMOVED IT INDEPENDENTLY. BLOOD ON THE FLOOR TO THE LEFT OF THE BED SMEARED WITH PAPER TOWELS. SALINE LOCK FOUND ON THE BED WITH DRESSING, WITH CATHETER INTACT. PT. PROVIDED WITH BAND-AID. PT PROVIDED WITH AMA FORM TO SIGN AND COPY TO TAKE HOME.
== END 2024-11-26 14:02 | disposition left against medical advice (07) ==
LOC: ED 12:28
PROVIDERS: Emergency Provider Emergency Medicine; Visit Provider Emergency Medicine
DX: R10.10 Upper abdominal pain, unspecified (principal); Z53.29 Procedure and treatment not carried out because of patient's decision for other reasons; I10 Essential (primary) hypertension; F17.210 Nicotine dependence, cigarettes, uncomplicated; E78.5 Hyperlipidemia, unspecified; Z90.49 Acquired absence of other specified parts of digestive tract; F32.A Depression, unspecified; Z79.899 Other long term (current) drug therapy; Z90.721 Acquired absence of ovaries, unilateral
CPT/HCPCS: 71046; 76705; 80053; 81001; 83690; 85025; 93005; 96360; 99284; A4216